=== PATIENT | male | born 1965 | race Caucasian/White ===

== ENCOUNTER 2016-09-11 13:08 | Inpatient (IN) | payer MEDICARE, MEDICAID ==
[2016-09-11] MEDS ORDERED: NORMAL SALINE 1000 ML 1,000 ML IV ONE (13:47)
[2016-09-11] MEDS ORDERED: NORMAL SALINE 100 ML with INSULIN REGULAR, HUMAN 100 UNIT IV PRN ×4 (13:47→23:53)
[2016-09-11] MEDS ORDERED: ONDANSETRON 4 MG TAB.RAPDIS PO ONE (13:52)
--- NOTE | 2016-09-11 14:00 | ER Document Report ---
ED Blood Sugar Problem - General Chief Complaint: High Blood Sugar Stated Complaint: BLOOD SUGAR PROBLEMS Mode of Arrival: Medic Information source: Patient, Emergency Med Personnel TRAVEL OUTSIDE OF THE [place] IN LAST 30 DAYS: No - HPI Onset: Other - 4 days Onset/Duration: Gradual Quality of pain: Dull Severity: Moderate Insulin taken: Yes - HAS BEEN WITHOUT x 4 DAYS Associated symptoms: Dry mucous membranes, Increased thirst, Frequent urination , Vomiting - YESTERDAY, Weakness. denies: Confusion Similar symptoms previously: Yes Recently seen / treated by doctor: No - Related Data Allergies/Adverse Reactions: tomato Allergy (Unknown, Verified 01/22/16 09:58) citric acid Allergy (Verified 10/17/13 16:14) codeine [Codeine] Allergy (Verified 10/17/13 16:14) Penicillins Allergy (Verified 10/17/13 16:14) Past Medical History - General Information source: Patient - Social History Smoking Status: Current Every Day Smoker Cigarette use (# per day): Yes Chew tobacco use (# tins/day): Yes Frequency of alcohol use: Occasional Drug Abuse: None Lives with: Alone Family History: Reviewed & Not Pertinent, Other - Past Medical History Cardiac Medical History: Reports: None Denies: Hx Coronary Artery Disease, Hx Heart Attack, Hx Hypertension Pulmonary Medical History: Reports: Hx COPD Denies: Hx Asthma, Hx Bronchitis, Hx Pneumonia EENT Medical History: Reports: None Neurological Medical History: Reports: None. Denies: Hx Cerebrovascular Accident, Hx Seizures Endocrine Medical History: Reports: Hx Diabetes Mellitus Type 1, Hx Diabetes Mellitus Type 2 Renal/ Medical History: Reports: None Malignancy Medical History: Reports None GI Medical History: Denies: Hx Hepatitis, Hx Hiatal Hernia, Hx Ulcer Musculoskeltal Medical History: Reports Hx Arthritis Psychiatric Medical History: Reports: Hx Depression Traumatic Medical History: Reports: Hx Fractures Infectious Medical History: Denies: Hx Hepatitis Past Surgical History: Reports: Hx Orthopedic Surgery - knee, ankle, back. Denies: Hx Open Heart Surgery, Hx Pacemaker - Immunizations Hx Diphtheria, Pertussis, Tetanus Vaccination: Yes Review of Systems - Review of Systems Constitutional: Weakness. denies: Chills, Fever EENT: Other - DRY MOUTH Cardiovascular: No symptoms reported Respiratory: No symptoms reported Gastrointestinal: See HPI Genitourinary: See HPI Musculoskeletal: Other - R. SHOULDER & UPPER EXTREMITY PAIN (CHRONIC) Skin: No symptoms reported Neurological/Psychological: No symptoms reported Physical Exam - Vital signs Vitals: Temp Resp Pulse Ox 98.6 F 19 98 09/11/16 13:26 09/11/16 13:26 09/11/16 13:26 Interpretation: Tachycardic. No: Hypotensive, Tachypneic - General General appearance: Appears well In distress: None - HEENT Head: Normocephalic Eyes: Normal Conjunctiva: Normal Ears: Normal Nasal: Normal Mouth/Lips: Normal Mucous membranes: Dry Pharynx: Erythema - GENERALIZED, Other - EDENTULOUS - Respiratory Respiratory status: No respiratory distress Breath sounds: Normal - Cardiovascular Rhythm: Regular, Tachycardia Heart sounds: Normal auscultation Murmur: No - Abdominal Inspection: Normal Distension: No distension Bowel sounds: Normal - Extremities General upper extremity: Normal inspection General lower extremity: Normal inspection - Neurological Neuro grossly intact: Yes Cognition: Normal Orientation: AAOx4 - Psychological Associated symptoms: Normal affect, Normal mood - Skin Skin Temperature: Warm Skin Moisture: Dry Skin Color: Normal Skin Turgor: Tenting Course - Vital Signs Vital signs: Temp Pulse Resp BP Pulse Ox 98.6 F 20 142/83 H 100 09/11/16 13:26 09/11/16 16:01 09/11/16 16:01 09/11/16 16:01 - Laboratory Result Diagrams: 09/11/16 14:09 09/11/16 14:09 Laboratory results interpreted by me: 09/11/16 09/11/16 09/11/16 14:09 14:09 16:21 WBC 15.8 H Hgb 13.1 L MCV 78 L MCH 24.5 L MCHC 31.4 L RDW 14.8 H Seg Neuts % (Manual) 91 H Lymphocytes % (Manual) 3 L Monocytes % (Manual) 2 L Abs Neuts (Manual) 15.0 H VBG pH VBG HCO3 Potassium 5.4 H Carbon Dioxide 12 L Anion Gap 28 H Glucose 456 H* POC Glucose 405 H* Direct Bilirubin 0.6 H AST 15 L Urine Glucose (UA) Urine Ketones 09/11/16 09/11/16 09/11/16 17:41 19:46 19:50 WBC Hgb MCV MCH MCHC RDW Seg Neuts % (Manual) Lymphocytes % (Manual) Monocytes % (Manual) Abs Neuts (Manual) VBG pH VBG HCO3 Potassium Carbon Dioxide Anion Gap Glucose POC Glucose 331 H 240 H Direct Bilirubin AST Urine Glucose (UA) >=500 H Urine Ketones 80 H 09/11/16 19:56 WBC Hgb MCV MCH MCHC RDW Seg Neuts % (Manual) Lymphocytes % (Manual) Monocytes % (Manual) Abs Neuts (Manual) VBG pH 7.21 L VBG HCO3 14.6 L Potassium Carbon Dioxide Anion Gap Glucose POC Glucose Direct Bilirubin AST Urine Glucose (UA) Urine Ketones - EKG Interpretation by Ms EKG shows normal: Sinus rhythm, Merlin, Intervals, QRS Complexes, ST-T Waves Rate: Tachycardia - Consults DR. FLORES Time consulted: 20:40 Consulted provider: will come to ER Discharge - Discharge Clinical Impression: Dehydration Diabetic ketoacidosis Qualifiers: Diabetes mellitus type: other specified (including LAURYN) Diabetes mellitus complication detail: without coma Qualified Code(s): E13.10 - Other specified diabetes mellitus with ketoacidosis without coma Vomiting Qualifiers: Vomiting type: unspecified Vomiting Intractability: non-intractable Nausea presence: with nausea Qualified Code(s): R11.2 - Nausea with vomiting, unspecified Condition: Good Disposition: ADMITTED INPATIENT Admitting Provider: Hospitalist Unit Admitted: [facility]
[2016-09-11 14:27] LABS: HEMATOCRIT 41.8 % (37.9-51.0); HEMOGLOBIN 13.1 g/dL (13.5-17.0); HGB HCT DIFFERENCE -2.5; MEAN CORPUSCULAR HEMOGLOBIN 24.5 pg (27.0-33.4); MEAN CORPUSCULAR HGB CONC 31.4 g/dL (32.0-36.0); MEAN CORPUSCULAR VOLUME 78 fl (80-97); RED BLOOD COUNT 5.36 10^6/uL (4.35-5.55); RED CELL DISTRIBUTION WIDTH 14.8 % (11.5-14.0); WHITE BLOOD COUNT 15.8 10^3/uL (4.0-10.5)
[2016-09-11 14:36] LABS: ALANINE AMINOTRANSFERASE 24 U/L (21-72); ALBUMIN 4.2 g/dL (3.5-5.0); ALKALINE PHOSPHATASE 83 U/L (38-126); ASPARTATE AMINO TRANSFERASE 15 U/L (17-59); BILIRUBIN,DIRECT 0.6 mg/dL (0.0-0.4); BLOOD UREA NITROGEN 18 mg/dL (7-20); CALCIUM 9.5 mg/dL (8.4-10.2); CARBON DIOXIDE 12 mmol/L (22-30); CREATINE KINASE 58 U/L (55-170); CREATININE RESULT 1.03 mg/dL (0.52-1.25); POTASSIUM 5.4 mmol/L (3.6-5.0); TOTAL PROTEIN 6.4 g/dL (6.3-8.2)
[2016-09-11 14:43] LABS: BAND NEUTROPHILS % (MANUAL) 4 % (3-5); BASOPHILS % (MANUAL) 0 % (0-2); EOSINOPHILS % (MANUAL) 0 % (0-6); LYMPHOCYTES % (MANUAL) 3 % (13-45); TOTAL CELLS COUNTED 100
[2016-09-11 14:45] LABS: BURR CELLS 1+; MICROCYTOSIS 1+; OVALOCYTES 1+; POIKILOCYTOSIS 2+
[2016-09-11 14:49] LABS: CHLORIDE 101 mmol/L (98-107); SODIUM 140.6 mmol/L (137-145)
[2016-09-11 14:51] LABS: ANION GAP 28 (5-19); TROPONIN I < 0.012 ng/mL
[2016-09-11 14:53] LABS: GLUCOSE 456 mg/dL (75-110)
[2016-09-11] MEDS ORDERED: INSULIN REG, HUMAN 100 UNIT/ML 3 ML VIAL (PYX) ONE (15:00)
[2016-09-11] MEDS ORDERED: NORMAL SALINE 1000 ML 1,000 ML IV PRN (16:38)
[2016-09-11] MEDS ORDERED: POTASSI CL 20 MEQ/NS 1L 1,000 ML IV PRN (16:38)
[2016-09-11] MEDS ORDERED: OXYCODONE-ACETAMINOPHEN 5-325 MG TABLET PO ONE (18:25)
[2016-09-11 20:06] LABS: VENOUS BLOOD BASE EXCESS -12.5 mmol/L; VENOUS BLOOD HCO3 14.6 mmol/L (20-32); VENOUS BLOOD PCO2 37.8 mmHg (35-63); VENOUS BLOOD PH 7.21 (7.30-7.42)
[2016-09-11 20:14] LABS: APPEARANCE,URINE CLEAR; BILIRUBIN,URINE NEGATIVE (NEGATIVE); GLUCOSE, URINE >=500 mg/dL (NEGATIVE); KETONES,URINE 80 mg/dL (NEGATIVE); LEUKOCYTE ESTERASE,URINE NEGATIVE (NEGATIVE); NITRITE,URINE NEGATIVE (NEGATIVE); PROTEIN,URINE NEGATIVE (NEGATIVE); URINE SPECIFIC GRAVITY 1.012; UROBILINOGEN,URINE NEGATIVE mg/dL (<2.0)
[2016-09-11 20:21] LABS: BLOOD UREA NITROGEN 15 mg/dL (7-20); CALCIUM 9.1 mg/dL (8.4-10.2); CREATININE RESULT 0.87 mg/dL (0.52-1.25); GLUCOSE 238 mg/dL (75-110)
[2016-09-11 20:47] LABS: ANION GAP 24 (5-19); CARBON DIOXIDE 12 mmol/L (22-30); CHLORIDE 104 mmol/L (98-107); POTASSIUM 4.6 mmol/L (3.6-5.0); SODIUM 139.6 mmol/L (137-145)
[2016-09-11] MEDS ORDERED: DEXTROSE 5%-1/2 NORMAL SALINE 1,000 ML IV PRN (20:47)
[2016-09-11] MEDS ORDERED: GLUCAGON,HUMAN RECOMB 1 MG INJ IM PRN (23:53)
[2016-09-11] MEDS ORDERED: DEXTROSE 50%-WATER 25 GM/50 ML DISP.SYRIN IV PRN ×2 (23:53)
[2016-09-11] MEDS ORDERED: NICOTINE 21 MG/24 HR PATCH.TD24 TD PRN (23:55)
[2016-09-11] MEDS ORDERED: RINGERS SOLUTION,LACTATED 2,000 ML IV ONE (23:57)
[2016-09-11] MEDS ORDERED: DEXTROSE 5%-NORMAL SALINE 1,000 ML IV PRN (23:57)
[2016-09-11] MEDS ORDERED: ACETAMINOPHEN 325 MG TABLET PO PRN (23:59)
[2016-09-11] MEDS ORDERED: IPRATROPIUM/ALBUTEROL 0.5-2.5 MG/3 ML AMPUL NEB PRN (23:59)
[2016-09-12 00:08] LABS: ADD ON TESTING BLD IN LAB ACKNOWLEDGE
--- NOTE | 2016-09-12 00:15 | PDOC H&P ---
History of Present Illness Admission Date/PCP: 09/11/16 21:19 [facility] Patient complains of: blood sugar problems History of Present Illness: GAL ERICKSON is a 51 year old male, with underlying type I diabetes mellitus, with a history of noncompliance with medications related to same, S and half pack-a-day smoker, history of prior stroke 2, which has left him with mild occasional dysphagia without aspiration along with ambulatory dysfunction, and chronic diabetic neuropathy of his feet and legs dense to the emergency room with complaints of elevated blood sugar, polyuria, polydipsia. No fever chills, chest or abdominal pain. No "sore spots" anywhere on his body. Nausea and occasional vomiting. [facility] [place] [facility], and left his insulin there. Patient has been discussed with emergency room [physician] who evaluated the patient. Hospitalized on our service January 15 through the of last year, with final diagnoses including diabetic ketoacidosis, and MRSA bacteremia secondary to cellulitis of the left forearm. History and physical and discharge summary have been reviewed.. Laboratory results are listed in [employer] and are reviewed. X-ray summary results are listed below, with full report(s) reviewed. []. EKG reviewed. [] Social history/personal habits: Single. One child. Lives with a friend. On disability due to problems from prior strokes. Less than half pack of cigarettes per day. No alcohol for 29 years. Denies illicit drug use. Allergies/adverse reactions [are listed in [employer] and are reviewed.] Home medications [] Home medications initially autopopulated into [employer] may not accurately reflect patient's true medications, dosages, and/or frequencies. [Unfortunately, [patient] uncertain of medications/dosages/frequencies. ] REVIEW OF SYSTEMS: Constitutional: [No fever or chills.] [] Eyes: [Wears glasses.] [] ENT: See history and present illness. [No hearing problems or complaints.] [] Pulmonary: [No current complaints.] [] Cardiovascular: [No current complaints, including chest pain.] [] Gastrointestinal: See history and present illness. [] Skin: [No current complaints, including rashes.] [] Hematologic: [No unusual easy bruising or bleeding.] [] Neurologic: Chronic numbness and tingling of his lower extremities due to diabetes mellitus. [] Musculoskeletal: Chronic shoulder pain. [] Psychiatric: [No current complaints, including anxiety or depression.] [] Endocrine: See history and present illness. [] Genitourinary: [No current complaints, including dysuria.] [] PHYSICAL EXAMINATION: 6 feet 2 inches tall. 76.3 kg. BMI 21.6 kg/m.Temperature 98.5. Blood pressure 118/58. Pulse 78 and regular. Respirations 16 and unlabored. 99% saturation on room air. Thin otherwise well-developed chronically ill-appearing male who appears a number of years older than his stated age. Pleasant awake alert and cooperative. No obvious distress other than somewhat anxious. [Skin is warm and dry. No grossly obvious evidence of rash in areas of skin examined. No subcutaneous nodules palpated.] [] ENT: [Hearing grossly normal] to normal conversation. Tongue midline on protrusion pink and slightly [tacky.] [] Eyes: [No scleral icterus. Pupils equal and reactive to light at 4 mm. [place] conjunctivae.] [] [Neck is supple and nontender to gentle active range of motion and palpation. Midline trachea. No palpable thyroid nodule mass enlargement or tenderness.] [] Lymphatic: [No palpable cervical or clavicular nodes.] [] [Neck and lymphatic exams limited by patient body habitus.] [] Psychiatric: [Fair to reasonable insight into acute and chronic medical issues. Oriented to time location and why here.] [] Lungs: [Auscultation reveals clear and equal breath sounds bilaterally. No use of accessory respiratory muscles.] [] Cardiovascular: [Heart regular rate and rhythm, without gallop murmur or rub. No carotid or abdominal aortic bruits.] [No ankle or pedal edema.] [ [Faintly] palpable dorsalis pedis pulses.] [] Abdomen:[ [soft], [] , [] nontender with positive bowel sounds. No upper abdominal mass or organomegaly palpated..] Extremities: [Feet are warm and dry. No calf tenderness to compression. No grossly obvious visual evidence of calf swelling. Gentle manipulation of lower extremities fails to reveal any obvious evidence of injury or instability to knees hips or ankles.] [] Neurologic: [Moves upper extremities grossly normally. Patellar reflexes absent. Absent Babinski. Light touch decreased at feet. Dorsiflexion and plantarflexion of feet 5 / 5 and symmetric.] [] Past Medical History Cardiac Medical History: Reports: None Denies: Coronary Artery Disease, DVT, Myocardial Infarction, Hyperlipidema, Hypertension, Pulmonary Embolism Pulmonary Medical History: Reports: Chronic Obstructive Pulmonary Disease (COPD) Denies: Asthma, Bronchitis, Pneumonia EENT Medical History: Reports: None Neurological Medical History: Reports: Ischemic CVA Denies: Hemorrhagic CVA, Seizures Endocrine Medical History: Reports: Diabetes Mellitus Type 1 Denies: Hyperthyroidism, Hypothyroidism Renal/ Medical History: Reports: None Malignancy Medical History: Reports: None GI Medical History: Reports: Peptic Ulcer Disease - Distant history of same. Denies: Cirrhosis, Hepatitis, Hiatal Hernia Musculoskeltal Medical History: Reports: Arthritis Psychiatric Medical History: Reports: Tobacco Dependency Denies: Alcohol Dependency, Depression, General Anxiety Disorder, Substance Abuse Hematology: Denies: Anemia, Sickle Cell Disease Infectious Medical History: Reports: Methicillin-Resistant Staph Aureus Denies: Hepatitis B, Hepatitis C Past Surgical History Past Surgical History: Reports: Orthopedic Surgery - knee, ankle, back, Pacemaker Social History Information Source: Patient, Emergency Med Personnel, [facility] Lives with: Friend Smoking Status: Current Every Day Smoker Frequency of Alcohol Use: None Hx Recreational Drug Use: No Hx Prescription Drug Abuse: No - Advance Directive Resuscitation Status: Full Code Surrogate healthcare decision maker:: His friend. Family History Family History: Reviewed & Not Pertinent, Other Parental Family History Reviewed: Yes Children Family History Reviewed: Yes Sibling(s) Family History Reviewed.: Yes Medication/Allergy Home Medications: Insulin Glargine,Hum.rec.anlog [Lantus] 30 units SUBCUT QHS 06/05/13 Gabapentin [Neurontin 300 mg Capsule] 600 mg PO Q8 #180 capsule 11/20/15 Gentamicin Sulfate [Garamycin 0.3% Oph Soln 5 ml] 1 drop OD Q4 #1 bottle Insulin Glargine,Hum.rec.anlog [Lantus Insulin 100 Unit/1 ml 10 ml] 22 units SQ QHS #1 vial 11/20/15 Insulin Lispro [Humalog Insulin (Lispro) 100 unit/mL] 2 unit SUBCUT AC unit Insulin Lispro [Humalog Insulin 100 Unit/1 ml 3 ml Vial] 0 unit SUBCUT .SLD SCALE #1 vial 11/20/15 Gabapentin [Neurontin 300 mg Capsule] 600 mg PO ACHS 01/07/16 Insulin Regular, Human [Humulin R (Reg) Insulin 100 unit/mL] 0 - 12 unit SUBCUT ACHSP PRN unit 01/09/16 Vancomycin/0.9 % Sod Chloride [Vancomycin 1 G/200Ml-0.9% NaCl] 1 gm IV Q8H #30 froz.piggy 01/24/16 Venlafaxine HCl ER [Effexor Xr 37.5 mg Cap.sr] 37.5 mg PO DAILY #30 cap.sr.24h 01/24/16 Allergies/Adverse Reactions: tomato Allergy (Unknown, Verified 01/22/16 09:58) citric acid Allergy (Verified 10/17/13 16:14) codeine [Codeine] Allergy (Verified 10/17/13 16:14) Penicillins Allergy (Verified 10/17/13 16:14) Physical Exam Vital Signs: Temp Pulse Resp BP Pulse Ox 98.6 F 21 H 122/56 L 97 09/11/16 13:26 09/11/16 18:00 09/11/16 22:03 09/11/16 22:03 Results Impressions: Chest X-Ray 09/11/16 13:48 IMPRESSION: NO ACUTE RADIOGRAPHIC FINDING IN THE CHEST. Assessment & Plan - Diagnosis (1) Tobacco dependency Is this a current diagnosis for this admission?: YesPlan: When necessary nicotine patch. (2) DKA, type 1 Qualifiers: Diabetes mellitus complication detail: without coma Qualified Code(s ): E10.10 - Type 1 diabetes mellitus with ketoacidosis without coma Is this a current diagnosis for this admission?: YesPlan: Patient will be admitted under DKA protocol. Insulin drip. Vigorous fluid hydration. Strict intake and output. Q 4 hours chemistry 7. Hourly Accu- Cheks. Addition of dextrose to intravenous fluid once serum glucose and/or Accu- Cheks 275 or less. Patient is full code. I have strongly encouraged patient not to get out of bed without notifying staff , to avoid a fall with injury. Knee high SCDs for DVT prophylaxis, along with subcutaneous Lovenox. Impression and plans were discussed with patient , who concurs. Time spent in evaluation and management of patient: 62 minutes (3) DVT prophylaxis Is this a current diagnosis for this admission?: Yes (4) Noncompliance Is this a current diagnosis for this admission?: Yes (5) COPD (chronic obstructive pulmonary disease) Qualifiers: COPD type: unspecified COPD Qualified Code(s): J44.9 - Chronic obstructive pulmonary disease, unspecified Is this a current diagnosis for this admission?: YesPlan: No evidence of acute exacerbation of same. When necessary DuoNeb. - Inpatient Certification Based on my medical assessment, after consideration of the patient's comorbidities, presenting symptoms, or acuity I expect that the services needed warrant INPATIENT care.: Yes I certify that my determination is in accordance with my understanding of Medicare's requirements for reasonable and necessary INPATIENT services [42 CFR 412.3e].: Yes Medical Necessity: Need Close Monitoring Due to Risk of Patient Decompensation, Need For IV Fluids, Need For Continuous Telemetry Monitoring, Risk of Complication if Not Cared For in Hospital, Risk of Diagnosis Which Will Require Inpatient Eval/Care/Monitoring Post Hospital Care: D/C or Transfer Summary
[2016-09-12 00:18] LABS: MAGNESIUM 1.6 mg/dL (1.6-2.3)
[2016-09-12 00:19] LABS: ALCOHOL < 10 mg/dL (NONE DETECTED)
[2016-09-12 00:47] LABS: ANION GAP 13 (5-19); BLOOD UREA NITROGEN 12 mg/dL (7-20); CALCIUM 8.9 mg/dL (8.4-10.2); CARBON DIOXIDE 17 mmol/L (22-30); CHLORIDE 108 mmol/L (98-107); CREATININE RESULT 0.73 mg/dL (0.52-1.25); GLUCOSE 189 mg/dL (75-110); SODIUM 137.9 mmol/L (137-145)
[2016-09-12] MEDS ORDERED: POTASSIUM CHLORIDE 20 MEQ/15 ML UDCUP PO ONE ×2 (01:34→06:26)
[2016-09-12 05:15] LABS: ABSOLUTE BASOPHILS # (AUTO) 0.1 10^3/uL (0.0-0.2); ABSOLUTE EOSINOPHILS # (AUTO) 0.1 10^3/uL (0.0-0.6); ABSOLUTE LYMPHOCYTES (AUTO) 3.1 10^3/uL (0.5-4.7); ABSOLUTE MONOCYTES (AUTO) 0.7 10^3/uL (0.1-1.4); ABSOLUTE NEUT (AUTO) 7.1 10^3/uL (1.7-8.2); BASOPHILS % (AUTO) 0.5 % (0-2); HEMATOCRIT 36.5 % (37.9-51.0); HEMOGLOBIN 11.7 g/dL (13.5-17.0); HGB HCT DIFFERENCE -1.4; LYMPHOCYTES % (AUTO) 28.1 % (13-45); MEAN CORPUSCULAR HEMOGLOBIN 24.2 pg (27.0-33.4); MEAN CORPUSCULAR VOLUME 76 fl (80-97); MONOCYTES % (AUTO) 6.3 % (3-13); RED BLOOD COUNT 4.82 10^6/uL (4.35-5.55); RED CELL DISTRIBUTION WIDTH 14.5 % (11.5-14.0); SEGMENTED NEUTROPHILS % (AUTO) 64.1 % (42-78); WHITE BLOOD COUNT 11.1 10^3/uL (4.0-10.5)
[2016-09-12 05:42] LABS: ANION GAP 10 (5-19); BLOOD UREA NITROGEN 10 mg/dL (7-20); CALCIUM 8.7 mg/dL (8.4-10.2); CARBON DIOXIDE 19 mmol/L (22-30); CHLORIDE 112 mmol/L (98-107); CREATININE RESULT 0.64 mg/dL (0.52-1.25); GLUCOSE 152 mg/dL (75-110); POTASSIUM 4.1 mmol/L (3.6-5.0); SODIUM 141.2 mmol/L (137-145)
[2016-09-12 08:35] LABS: URINE BARBITURATES SCREEN NEGATIVE; URINE OPIATES LOW NEGATIVE; URINE PHENCYCLIDINE SCREEN NEGATIVE
[2016-09-12 08:36] LABS: URINE METHADONE SCREEN NEGATIVE
[2016-09-12] MEDS: ENOXAPARIN SODIUM INJ 40 MG/0.4 ML DISP.SYRIN SUBCUT SCH (08:38)
[2016-09-12 08:59] LABS: ANION GAP 8 (5-19); BLOOD UREA NITROGEN 8 mg/dL (7-20); CALCIUM 9.1 mg/dL (8.4-10.2); CARBON DIOXIDE 22 mmol/L (22-30); CHLORIDE 112 mmol/L (98-107); CREATININE RESULT 0.59 mg/dL (0.52-1.25); GLUCOSE 100 mg/dL (75-110); POTASSIUM 4.3 mmol/L (3.6-5.0); SODIUM 142.4 mmol/L (137-145)
[2016-09-12] MEDS: DOCUSATE SODIUM 100 MG CAPSULE PO SCH ×2 (11:19→17:35)
[2016-09-12] MEDS: INSULIN GLARGINE,HUM.REC.ANLOG 300 UNIT/3 ML INSULN.PEN SUBCUT SCH ×2 (11:20→23:11)
[2016-09-12] MEDS ORDERED: DEXTROSE 40% GEL 15 GM TUBE PO PRN ×2 (11:44)
[2016-09-12] MEDS ORDERED: GLUCAGON,HUMAN RECOMB 1 MG INJ IM PRN (11:44)
[2016-09-12] MEDS ORDERED: DEXTROSE 50%-WATER 25 GM/50 ML DISP.SYRIN IV PRN ×2 (11:44)
[2016-09-12] MEDS ORDERED: INSULIN LISPRO 100 UNIT/ML 3 ML VIAL ONE (11:47)
[2016-09-12] MEDS: INSULIN LISPRO 100 UNIT/ML 3 ML VIAL SUBCUT PRN ×3 (11:52→23:12)
[2016-09-12] MEDS: BENZOCAINE/MENTHOL SORE THROAT LOZENGE BUCCAL PRN ×2 (14:31→17:41)
--- NOTE | 2016-09-12 14:49 | PDOC PROGRESS REPORT ---
Subjective Progress Note for:: 09/12/16 Subjective:: Patient seen on morning rounds. He is resting comfortably in bed. He states his only complaint is that he is hungry. He denies any nausea, vomiting, or abdominal pain. He denies any cough, shortness of breath or dyspnea. He denies any chest pain, dizziness or headache. He states he has not taken his insulin 3 days because he left the rehabilitation center he was in [place]. Physical Exam Vital Signs: Temp Pulse Resp BP Pulse Ox 98.3 F 76 20 108/53 L 100 09/12/16 12:00 09/12/16 14:00 09/12/16 12:00 09/12/16 12:00 09/12/16 12:00 Intake & Output 09/11/16 09/12/16 09/13/16 06:59 06:59 06:59 Intake Total 2683 0 Output Total 0 Balance 2683 0 General appearance: PRESENT: no acute distress, well-developed, well-nourished Head exam: PRESENT: atraumatic, normocephalic Eye exam: PRESENT: conjunctival injection Ear exam: PRESENT: normal external ear exam Mouth exam: PRESENT: moist, tongue midline Neck exam: ABSENT: carotid bruit, JVD, lymphadenopathy, thyromegaly Respiratory exam: PRESENT: clear to auscultation benjamin. ABSENT: rales, rhonchi, wheezes Cardiovascular exam: PRESENT: RRR. ABSENT: diastolic murmur, rubs, systolic murmur Vascular exam: PRESENT: normal capillary refill GI/Abdominal exam: PRESENT: normal bowel sounds, soft. ABSENT: distended, guarding, mass, organolmegaly, rebound, tenderness Rectal exam: PRESENT: deferred Extremities exam: PRESENT: full ROM. ABSENT: calf tenderness, clubbing, pedal edema Neurological exam: PRESENT: alert, awake, oriented to person, oriented to place , oriented to time, oriented to situation, CN II-XII grossly intact. ABSENT: motor sensory deficit Psychiatric exam: PRESENT: appropriate affect, normal mood. ABSENT: homicidal ideation, suicidal ideation Skin exam: PRESENT: dry, intact, warm. ABSENT: cyanosis, rash Results Laboratory Results: 09/12/16 04:54 09/12/16 08:04 09/12/16 09/12/16 09/12/16 00:25 04:54 04:54 WBC 11.1 H RBC 4.82 Hgb 11.7 L Hct 36.5 L MCV 76 L MCH 24.2 L MCHC 32.0 RDW 14.5 H Plt Count 263 Seg Neutrophils % 64.1 Lymphocytes % 28.1 Monocytes % 6.3 Eosinophils % 1.0 Basophils % 0.5 Absolute Neutrophils 7.1 Absolute Lymphocytes 3.1 Absolute Monocytes 0.7 Absolute Eosinophils 0.1 Absolute Basophils 0.1 Sodium 137.9 141.2 Potassium 4.0 4.1 Chloride 108 H 112 H Carbon Dioxide 17 L 19 L Anion Gap 13 10 BUN 12 10 Creatinine 0.73 0.64 Est GFR ( Amer) > 60 > 60 Est GFR (Non-Af Amer) > 60 > 60 Glucose 189 H 152 H Calcium 8.9 8.7 09/12/16 08:04 WBC RBC Hgb Hct MCV MCH MCHC RDW Plt Count Seg Neutrophils % Lymphocytes % Monocytes % Eosinophils % Basophils % Absolute Neutrophils Absolute Lymphocytes Absolute Monocytes Absolute Eosinophils Absolute Basophils Sodium 142.4 Potassium 4.3 Chloride 112 H Carbon Dioxide 22 Anion Gap 8 BUN 8 Creatinine 0.59 Est GFR ( Amer) > 60 Est GFR (Non-Af Amer) > 60 Glucose 100 Calcium 9.1 Impressions: Chest X-Ray 09/11/16 13:48 IMPRESSION: NO ACUTE RADIOGRAPHIC FINDING IN THE CHEST. Assessment & Plan - Diagnosis (1) DKA (diabetic ketoacidosis) Qualifiers: Diabetes mellitus type: other specified (including LAURYN) Diabetes mellitus complication detail: without coma Qualified Code(s): E13.10 - Other specified diabetes mellitus with ketoacidosis without coma Plan: Patient has been rehydrated with IV fluids. He is received IV insulin overnight and pain Is closed. Bicarbonate is normal small morning. We will restart his Lantus insulin and transition him off the IV insulin. We will restart his diet. He's had a history of noncompliance with medications. (2) Dehydration Is this a current diagnosis for this admission?: YesPlan: Patient was well hydrated overnight with IV fluids. (3) Vomiting Qualifiers: Vomiting type: unspecified Vomiting Intractability: non-intractable Nausea presence: with nausea Qualified Code(s): R11.2 - Nausea with vomiting, unspecified Is this a current diagnosis for this admission?: YesPlan: Patient history of vomiting prior to his admission here. He denies any nausea vomiting present time he states he is hungry. We'll restart diet. (4) Depression Qualifiers: Depression Type: unspecified Qualified Code(s): F32.9 - Major depressive disorder, single episode, unspecified Is this a current diagnosis for this admission?: YesPlan: Continue home medications (5) Tobacco dependency Is this a current diagnosis for this admission?: YesPlan: Patient has been counseled. He has no desire to quit (6) DVT prophylaxis Is this a current diagnosis for this admission?: YesPlan: Patient is on subcutaneous Lovenox - Time Time Spent with patient: 25-34 minutes Critical Time spent with patient: 15-24 minutes Smoking Cessation Education: 3 to 10 minutes Medications reviewed and adjusted accordingly: Yes Anticipated discharge: Home
--- NOTE | 2016-09-12 15:38 | EKG REPORT ---
SEVERITY:- OTHERWISE NORMAL ECG - SINUS TACHYCARDIA : Confirmed by: Tory Shah MD 12-Sep-2016 15:36:29
[2016-09-12 15:45] LABS: ANION GAP 11 (5-19); BLOOD UREA NITROGEN 7 mg/dL (7-20); CALCIUM 8.9 mg/dL (8.4-10.2); CARBON DIOXIDE 20 mmol/L (22-30); CHLORIDE 108 mmol/L (98-107); CREATININE RESULT 0.67 mg/dL (0.52-1.25); GLUCOSE 235 mg/dL (75-110); POTASSIUM 4.5 mmol/L (3.6-5.0); SODIUM 139.4 mmol/L (137-145)
[2016-09-12 19:32] LABS: ANION GAP 12 (5-19); BLOOD UREA NITROGEN 8 mg/dL (7-20); CALCIUM 9.1 mg/dL (8.4-10.2); CARBON DIOXIDE 20 mmol/L (22-30); CHLORIDE 108 mmol/L (98-107); CREATININE RESULT 0.69 mg/dL (0.52-1.25); GLUCOSE 301 mg/dL (75-110); POTASSIUM 4.6 mmol/L (3.6-5.0)
--- NOTE | 2016-09-13 04:40 | Progress Note ---
Provider Note Provider Note: 09/13/16, 0032: Patient continues to intermittently refuse to have blood drawn. I was notified by patient's floor nurse that he Refused to have midnight Chem-7 drawn. I was involved in the care of another patient that time and could not come to the patient's bedside. I had his floor nurse go to the patient's bedside, and by speaker phone, I strongly urged patient to have blood work drawn, stating that his diabetes mellitus could easily get out of control again unless we monitored it on a regular basis resulting in his becoming quite sick again. He seemed quite reluctant to have the blood drawn. I told him we would be requesting that he sign a refusal of care form if he continued to refuse to have his blood drawn. I instructed his nurse that if patient continued to refuse to have his blood drawn, to have patient sign a refusal of care form, and it patient refused to sign, for the nurse to document this in the patient's chart.
[2016-09-13] MEDS: INSULIN LISPRO 100 UNIT/ML 3 ML VIAL SUBCUT PRN ×2 (07:50→11:30)
[2016-09-13] MEDS: ENOXAPARIN SODIUM INJ 40 MG/0.4 ML DISP.SYRIN SUBCUT SCH (07:51)
[2016-09-13] MEDS: DOCUSATE SODIUM 100 MG CAPSULE PO SCH (11:22)
[2016-09-13 12:15] VITALS: BP 107/54
--- NOTE | 2016-09-13 15:23 | PDOC DISCHARGE SUMMARY ---
General - Admit/Disc Date/PCP Admission Date/Primary Care Provider: 09/11/16 23:59 KAYLIE ALVAREZ, Discharge Date: 09/13/16 - Discharge Diagnosis (1) DKA (diabetic ketoacidosis) Summary: Resolved with IV fluids and insulin (2) Dehydration Is this a current diagnosis for this admission?: YesSummary: Resolved (3) Vomiting Is this a current diagnosis for this admission?: YesSummary: Resolved (4) Depression Is this a current diagnosis for this admission?: YesSummary: Continue current medication (5) Tobacco dependency Is this a current diagnosis for this admission?: YesSummary: Patient was counseled he has no intentions of quitting. (6) DVT prophylaxis Is this a current diagnosis for this admission?: YesSummary: No longer problem he is ambulatory - Additional Information Resuscitation Status: Full Code Discharge Diet: Diabetic Discharge Activity: Activity As Tolerated, Balance Activity w/Rest Home Medications: Gabapentin [Neurontin] 600 mg PO Q8 09/12/16 Insulin Glargine,Hum.rec.anlog [Lantus] 5 unit SQ QHS 09/12/16 Acetaminophen [Tylenol 325 mg Tablet] 325 mg PO Q4HP PRN tablet 09/13/16 Insulin Glargine,Hum.rec.anlog [Lantus Insulin 100 Unit/mL] 25 unit SUBCUT QHS # 1 insuln.pen 09/13/16 Insulin Lispro [Humalog] 2 unit SQ AC #10 ml 09/13/16 Syringe & Needle,Insulin,1 ml [Insulin Syringe 1 mL] 1 syr MC ASDIR PRN #100 syringe 09/13/16 History of Present Illness Patient complains of: Blood sugar problems History of Present Illness: GAL ERICKSON is a 51 year old male, with underlying type I diabetes mellitus, with a history of noncompliance with medications related to same, S and half pack-a-day smoker, history of prior stroke 2, which has left him with mild occasional dysphagia without aspiration along with ambulatory dysfunction, and chronic diabetic neuropathy of his feet and legs dense to the emergency room with complaints of elevated blood sugar, polyuria, polydipsia. No fever chills, chest or abdominal pain. No "sore spots" anywhere on his body. Nausea and occasional vomiting. Was discharged from [facility] living in [place] 3 days ago, and left his insulin there. Hospital Course Hospital Course: Patient was admitted to the [facility] on telemetry. He was started on IV fluids, IV insulin, every 1 hour Chemstrip, and dextrose source. His anion gap closed the next morning. He was able to be transitioned from the IV insulin to Lantus insulin. He no further nausea and vomiting. He was tolerating a diabetic diet without any difficulty. He is no longer acidotic today he wishes to go home he states he will get his insulin refilled. He will follow-up with [facility] within 1 week. Physical Exam Vital Signs: Temp Pulse Resp BP Pulse Ox 98.2 F 64 20 107/54 L 99 09/13/16 10:59 09/13/16 10:59 09/13/16 10:59 09/13/16 10:59 09/13/16 10:59 Intake & Output 09/12/16 09/13/16 09/14/16 06:59 06:59 06:59 Intake Total 2683 1735 Output Total 0 Balance 2683 1735 Weight 75.2 kg General appearance: PRESENT: no acute distress, well-developed, well-nourished Head exam: PRESENT: atraumatic, normocephalic Eye exam: PRESENT: conjunctiva pink, EOMI, PERRLA. ABSENT: scleral icterus Ear exam: PRESENT: normal external ear exam Mouth exam: PRESENT: moist, tongue midline Neck exam: ABSENT: carotid bruit, JVD, lymphadenopathy, thyromegaly Respiratory exam: PRESENT: clear to auscultation benjamin. ABSENT: rales, rhonchi, wheezes Cardiovascular exam: PRESENT: RRR. ABSENT: diastolic murmur, rubs, systolic murmur Vascular exam: PRESENT: normal capillary refill GI/Abdominal exam: PRESENT: normal bowel sounds, soft. ABSENT: distended, guarding, mass, organolmegaly, rebound, tenderness Rectal exam: PRESENT: deferred Extremities exam: PRESENT: full ROM. ABSENT: calf tenderness, clubbing, pedal edema Neurological exam: PRESENT: alert, awake, oriented to person, oriented to place , oriented to time, oriented to situation, CN II-XII grossly intact. ABSENT: motor sensory deficit Psychiatric exam: PRESENT: appropriate affect, normal mood. ABSENT: homicidal ideation, suicidal ideation Skin exam: PRESENT: dry, intact, warm. ABSENT: cyanosis, rash Results Laboratory Results: 09/12/16 04:54 09/12/16 18:45 09/12/16 09/12/16 15:00 18:45 Sodium 139.4 140.0 Potassium 4.5 4.6 Chloride 108 H 108 H Carbon Dioxide 20 L 20 L Anion Gap 11 12 BUN 7 8 Creatinine 0.67 0.69 Est GFR ( Amer) > 60 > 60 Est GFR (Non-Af Amer) > 60 > 60 Glucose 235 H 301 H Calcium 8.9 9.1 09/12/16 08:30 Nasophary (Mrsa Only) MRSA Surveillance Culture - Final NO MRSA RECOVERED Impressions: Chest X-Ray 09/11/16 13:48 IMPRESSION: NO ACUTE RADIOGRAPHIC FINDING IN THE CHEST. Qualifiers PATEINT BEING DISCHARGED WITH ANY OF THE FOLLOWING DIAGNOSIS?: No Plan Discharge Plan: Discharge home with family. Time Spent: Less than 30 Minutes
[2016-09-13] MEDS ORDERED: INSULIN GLARGINE,HUM.REC.ANLOG 300 UNIT/3 ML INSULN.PEN SUBCUT SCH (22:00)
== END 2016-09-13 12:50 | disposition home or self-care (01) | DRG 639 ==
LOC: ER 13:08 → UNDOADMIN 21:19 → EH 21:19 → 3W 23:15 → EH 23:59
PROVIDERS: ADMIT Family Medicine; ATTEND Family Medicine
DX: E10.10 Type 1 diabetes mellitus with ketoacidosis without coma (principal); E10.42 Type 1 diabetes mellitus with diabetic polyneuropathy; Z79.4 Long term (current) use of insulin; Z91.14 Patient's other noncompliance with medication regimen; E86.0 Dehydration; I69.391 Dysphagia following cerebral infarction; R13.10 Dysphagia, unspecified; J44.9 Chronic obstructive pulmonary disease, unspecified; F32.9 Major depressive disorder, single episode, unspecified; Z79.899 Other long term (current) drug therapy; Z86.14 Personal history of Methicillin resistant Staphylococcus aureus infection; F17.210 Nicotine dependence, cigarettes, uncomplicated; Z91.018 Allergy to other foods; Z87.11 Personal history of peptic ulcer disease; Z88.0 Allergy status to penicillin; Z88.8 Allergy status to other drugs, medicaments and biological substances
CPT/HCPCS: 36415; 71010; 80048; 80053; 80307; 81001; 82550; 82553; 82803; 82962; 83036; 83735; 84484; 85025; 93005; 93010; 96360; 96361; 99285; J1650; J1815; J3480; J3490; J7030; J7120; S0119

== ENCOUNTER 2016-09-15 06:39 | Inpatient (IN) | payer MEDICARE, MEDICAID ==
--- NOTE | 2016-09-15 06:46 | ER Document Report ---
ED General - General Stated Complaint: BLOOD SUGAR PROBLEMS Mode of Arrival: Medic Information source: Patient, Emergency Med Personnel Cannot obtain history due to: Altered mental status Notes: 51-year-old diabetic male who takes Humalog only presents by EMS for altered mental status. It is noted that the patient woke up friends, appeared confused breathing fast. Patient blood sugar has been elevated over the past 3-4 days. Patient unable to provide further information TRAVEL OUTSIDE OF THE [place] IN LAST 30 DAYS: No - HPI Onset: Just prior to arrival Onset/Duration: Sudden Quality of pain: No pain Severity: Mild Pain Level: Denies Associated symptoms: Nausea Exacerbated by: Denies Relieved by: Denies Similar symptoms previously: No Recently seen / treated by doctor: No - Related Data Allergies/Adverse Reactions: tomato Allergy (Unknown, Verified 01/22/16 09:58) citric acid Allergy (Verified 10/17/13 16:14) codeine [Codeine] Allergy (Verified 10/17/13 16:14) Penicillins Allergy (Verified 10/17/13 16:14) Past Medical History - Social History Smoking Status: Never Smoker Cigarette use (# per day): No Chew tobacco use (# tins/day): No Smoking Education Provided: No Family History: Reviewed & Not Pertinent, Other - Past Medical History Cardiac Medical History: Denies: Hx Coronary Artery Disease, Hx DVT, Hx Heart Attack, Hx Hypercholesterolemia, Hx Hypertension, Hx Pulmonary Embolism Pulmonary Medical History: Reports: Hx COPD Denies: Hx Asthma, Hx Bronchitis, Hx Pneumonia Neurological Medical History: Denies: Hx Cerebrovascular Accident, Hx Seizures Endocrine Medical History: Reports: Hx Diabetes Mellitus Type 1, Hx Diabetes Mellitus Type 2. Denies: Hx Hyperthyroidism, Hx Hypothyroidism GI Medical History: Denies: Hx Cirrhosis, Hx Hepatitis, Hx Hiatal Hernia, Hx Ulcer Musculoskeltal Medical History: Reports Hx Arthritis Psychiatric Medical History: Denies: Hx Depression Traumatic Medical History: Reports: Hx Fractures Infectious Medical History: Reports: Hx MRSA. Denies: Hx Hepatitis Past Surgical History: Reports: Hx Orthopedic Surgery - knee, ankle, back, Hx Pacemaker. Denies: Hx Open Heart Surgery - Immunizations Hx Diphtheria, Pertussis, Tetanus Vaccination: Yes Review of Systems - Review of Systems Notes: REVIEW OF SYSTEMS: per ems CONSTITUTIONAL : Denies fever, chills, or sweats. Denies recent illness. EENT: Denies eye, ear, throat, or mouth pain or symptoms. Denies nasal or sinus congestion or discharge. Denies throat, tongue, or mouth swelling or difficulty swallowing. CARDIOVASCULAR: Denies chest pain. Denies palpitations or racing or irregular heart beat. Denies ankle edema. RESPIRATORY: Denies cough, cold, or chest congestion. Denies shortness of breath, difficulty breathing, or wheezing. GASTROINTESTINAL: admits ot nausea GENITOURINARY: Denies difficulty urinating, painful urination, burning, frequency, blood in urine, or discharge. MUSCULOSKELETAL: Denies back or neck pain or stiffness. Denies joint pain or swelling. SKIN: Denies rash, lesions or sores. HEMATOLOGIC : Denies easy bruising or bleeding. LYMPHATIC: Denies swollen, enlarged glands. NEUROLOGICAL: appears confused PSYCHIATRIC: Denies anxiety or stress. Denies depression, suicidal ideation, or homicidal ideation. ALL OTHER SYSTEMS REVIEWED AND NEGATIVE. Dictation was performed using [employer] voice recognition software PHYSICAL EXAMINATION: GENERAL: ill appearing male , pale HEAD: Atraumatic, normocephalic. EYES: Pupils equal round and reactive to light, extraocular movements intact, sclera anicteric, conjunctiva are normal. ENT: Nares patent, oropharynx clear without exudates. Moist mucous membranes. NECK: Normal range of motion, supple without lymphadenopathy LUNGS: tachypneic HEART: tachycardic ABDOMEN: Soft, nontender, nondistended abdomen. No guarding, no rebound. No masses appreciated. Musculoskeletal: Normal range of motion, no pitting or edema. No cyanosis. NEUROLOGICAL: moaning, not answering questions appropriately, not following commands SKIN: pale Physical Exam - Vital signs Vitals: Pulse Resp BP Pulse Ox 134 H 30 H 134/73 H 100 09/15/16 06:50 09/15/16 06:50 09/15/16 06:50 09/15/16 06:50 Course - Re-evaluation Re-evalutation: 09/15/16 06:54 Patient appears to be in DKA at this time, lab work is pending fluids have been ordered, accucheck high 09/15/16 08:42 Patient's VBG has resolved, pH is 6.8, sodium bicarbonate has been started. Patient is already received 2 L of IV fluid however we had great difficulty in obtaining blood and multiple sticks were attempted. 09/15/16 09:00 UA notes significant ketones and glucose 09/15/16 09:27 Patient's blood sugar is noted to be 800+, given that he is currently protecting his airway do not believe he needs to be intubated. Patient will be admitted to the ICU - Vital Signs Vital signs: Temp Pulse Resp BP Pulse Ox 95.8 F L 133 H 33 H 153/99 H 100 09/15/16 09:00 09/15/16 09:00 09/15/16 09:00 09/15/16 09:00 09/15/16 09:00 - Laboratory Result Diagrams: 09/15/16 08:11 09/15/16 07:50 Laboratory results interpreted by me: 09/15/16 09/15/16 09/15/16 07:50 08:11 08:11 WBC 23.7 H Hgb 11.3 L MCH 24.7 L MCHC 28.7 L RDW 16.0 H Seg Neuts % (Manual) 82 H Lymphocytes % (Manual) 11 L Abs Neuts (Manual) 20.1 H VBG pH 6.80 L* VBG pCO2 26.6 L VBG HCO3 4.0 L Potassium 6.2 H* Carbon Dioxide < 5 L* BUN 23 H Creatinine 1.69 H Est GFR ( Amer) 52 L Est GFR (Non-Af Amer) 43 L Glucose 821 H* Direct Bilirubin 0.6 H Total Protein 5.8 L Urine Glucose (UA) Urine Ketones Urine Blood 09/15/16 08:40 WBC Hgb MCH MCHC RDW Seg Neuts % (Manual) Lymphocytes % (Manual) Abs Neuts (Manual) VBG pH VBG pCO2 VBG HCO3 Potassium Carbon Dioxide BUN Creatinine Est GFR ( Amer) Est GFR (Non-Af Amer) Glucose Direct Bilirubin Total Protein Urine Glucose (UA) >=500 H Urine Ketones 80 H Urine Blood SMALL H - Diagnostic Test Radiology reviewed: Image reviewed, Reports reviewed Critical Care Note - Critical Care Note Total time excluding time spent on procedures (mins): 45 Comments: 45 minutes of critical care time spent in direct contact evaluating and reevaluating the patient, treating symptoms, reviewing labs and studies and speaking with family and consultants excluding any procedures Discharge - Discharge Clinical Impression: Acute encephalopathy, Dehydration DKA (diabetic ketoacidoses) Qualifiers: Diabetes mellitus type: type 1 Diabetes mellitus complication detail: without coma Qualified Code(s): E10.10 - Type 1 diabetes mellitus with ketoacidosis without coma COPD (chronic obstructive pulmonary disease) Qualifiers: COPD type: unspecified COPD Qualified Code(s): J44.9 - Chronic obstructive pulmonary disease, unspecified Condition: Serious Disposition: ADMITTED INPATIENT Admitting Provider: Hospitalist Unit Admitted: ICU
[2016-09-15 08:21] LABS: HEMATOCRIT 39.3 % (37.9-51.0); HEMOGLOBIN 11.3 g/dL (13.5-17.0); MEAN CORPUSCULAR HEMOGLOBIN 24.7 pg (27.0-33.4); MEAN CORPUSCULAR HGB CONC 28.7 g/dL (32.0-36.0); RED BLOOD COUNT 4.57 10^6/uL (4.35-5.55); WHITE BLOOD COUNT 23.7 10^3/uL (4.0-10.5)
[2016-09-15 08:31] LABS: HGB HCT DIFFERENCE -5.4
[2016-09-15 08:36] LABS: VENOUS BLOOD BASE EXCESS -29.9 mmol/L; VENOUS BLOOD PCO2 26.6 mmHg (35-63)
[2016-09-15 08:37] LABS: VENOUS BLOOD PH 6.8 (7.30-7.42)
[2016-09-15 08:39] LABS: ALANINE AMINOTRANSFERASE 28 U/L (21-72); ALBUMIN 3.8 g/dL (3.5-5.0); ALKALINE PHOSPHATASE 89 U/L (38-126); ASPARTATE AMINO TRANSFERASE 23 U/L (17-59); BILIRUBIN,DIRECT 0.6 mg/dL (0.0-0.4); BILIRUBIN,TOTAL 0.6 mg/dL (0.2-1.3); BLOOD UREA NITROGEN 23 mg/dL (7-20); CALCIUM 9.1 mg/dL (8.4-10.2); CREATININE RESULT 1.69 mg/dL (0.52-1.25); LIPASE 34.7 U/L (23-300); TOTAL PROTEIN 5.8 g/dL (6.3-8.2)
[2016-09-15] MEDS ORDERED: SODIUM BICARBONATE 8.4% INJ 50 MEQ/50 ML DISP.SYRIN IV ONE (08:39)
[2016-09-15] MEDS: NORMAL SALINE 1000 ML 1,000 ML IV PRN ×8 (08:40→09:06)
[2016-09-15 08:55] LABS: APPEARANCE,URINE CLEAR; BILIRUBIN,URINE NEGATIVE (NEGATIVE); GLUCOSE, URINE >=500 mg/dL (NEGATIVE); KETONES,URINE 80 mg/dL (NEGATIVE); LEUKOCYTE ESTERASE,URINE NEGATIVE (NEGATIVE); NITRITE,URINE NEGATIVE (NEGATIVE); PROTEIN,URINE NEGATIVE (NEGATIVE); UROBILINOGEN,URINE NEGATIVE mg/dL (<2.0)
[2016-09-15 08:57] LABS: BAND NEUTROPHILS % (MANUAL) 3 % (3-5); BASOPHILS % (MANUAL) 0 % (0-2); EOSINOPHILS % (MANUAL) 0 % (0-6); LYMPHOCYTES % (MANUAL) 11 % (13-45); TOTAL CELLS COUNTED 100
[2016-09-15 08:59] LABS: ANISOCYTOSIS 1+
[2016-09-15 09:00] LABS: BURR CELLS 2+; HELMET CELLS SLIGHT; OVALOCYTES 1+; POIKILOCYTOSIS 3+
[2016-09-15 09:01] LABS: MEAN CORPUSCULAR VOLUME 86 fl (80-97)
[2016-09-15 09:16] LABS: CHLORIDE 101 mmol/L (98-107); SODIUM 141.5 mmol/L (137-145)
[2016-09-15 09:21] LABS: CARBON DIOXIDE < 5 mmol/L (22-30); GLUCOSE 821 mg/dL (75-110); POTASSIUM 6.2 mmol/L (3.6-5.0)
[2016-09-15] MEDS ORDERED: INSULIN REG, HUMAN 100 UNIT/ML 3 ML VIAL (PYX) IV ONE (09:22)
[2016-09-15] MEDS ORDERED: DEXTROSE 50%-WATER SYRINGE 25 GM/50 ML DOSE IV PRN (09:37)
[2016-09-15] MEDS ORDERED: INSULIN, REGULAR 100 UNIT/100 ML NORMAL SALINE IV PRN ×2 (09:37)
[2016-09-15] MEDS ORDERED: DEXTROSE 50%-WATER SYRINGE 12.5 GM/25 ML DOSE IV PRN (09:37)
[2016-09-15] MEDS ORDERED: DEXTROSE 40% GEL 15 GM TUBE PO PRN ×4 (09:37→09:52)
[2016-09-15] MEDS ORDERED: GLUCAGON,HUMAN RECOMB 1 MG INJ IM PRN ×2 (09:37→09:52)
[2016-09-15] MEDS ORDERED: DEXTROSE 40% GEL 15 GM TUBE X 2 PO PRN (09:37)
[2016-09-15] MEDS ORDERED: INSULIN REG, HUMAN 100 UNIT/ML 3 ML VIAL (PYX) ONE (09:43)
[2016-09-15] MEDS: NORMAL SALINE 100 ML with INSULIN REGULAR, HUMAN 100 UNIT IV PRN ×4 (09:45→19:55)
[2016-09-15] MEDS ORDERED: GLUCAGON,HUMAN RECOMB 1 MG INJ SUBCUT PRN (09:52)
[2016-09-15] MEDS ORDERED: IPRATROPIUM/ALBUTEROL 0.5-2.5 MG/3 ML AMPUL NEB PRN (09:52)
[2016-09-15] MEDS ORDERED: DEXTROSE 50%-WATER 25 GM/50 ML DISP.SYRIN IV PRN ×2 (09:52)
[2016-09-15] MEDS ORDERED: ONDANSETRON HCL INJ/PF 4 MG/2 ML SDV IV PRN (10:01)
[2016-09-15] MEDS ORDERED: ACETAMINOPHEN 650 MG SUPP.RECT PR PRN (10:01)
[2016-09-15] MEDS ORDERED: LORAZEPAM INJ 2 MG/1 ML VIAL IV ONE (10:55)
[2016-09-15] MEDS ORDERED: DIPHENHYDRAMINE HCL 50 MG/ML VIAL IV ONE (10:55)
[2016-09-15 11:18] LABS: URINE BARBITURATES SCREEN NEGATIVE; URINE METHADONE SCREEN NEGATIVE; URINE OPIATES LOW NEGATIVE; URINE PHENCYCLIDINE SCREEN NEGATIVE
[2016-09-15] MEDS: RINGERS SOLUTION,LACTATED 1,000 ML IV PRN ×3 (11:52→14:34)
--- NOTE | 2016-09-15 12:26 | PDOC H&P ---
History of Present Illness Admission Date/PCP: 09/15/16 09:52 KAYLIE ALVAREZ, Patient complains of: obtunded History of Present Illness: GAL ERICKSON is a 51 year old male well known to the hospitalist service for repeated admissions in the treatment of his type I diabetes, medical noncompliance and resultant DKA. In fact he was just admitted to our hospital and discharged to couple of days ago after medical noncompliance led to an episode of DKA. He presents to the emergency department now due to altered mental status and is once again found to be severely acidotic with blood sugars registering greater than 1000. Currently he remains obtunded and unable to provide a review of systems her medical history. He has a pH of 6.8, is receiving his sixth liter of normal saline and is on an insulin drip at 7 units per hour at present. We've been asked to admit patient for further evaluation and management. Past Medical History Cardiac Medical History: Denies: Coronary Artery Disease, DVT, Myocardial Infarction, Hyperlipidema, Hypertension, Pulmonary Embolism Pulmonary Medical History: Reports: Chronic Obstructive Pulmonary Disease (COPD) Denies: Asthma, Bronchitis, Pneumonia Neurological Medical History: Denies: Seizures Endocrine Medical History: Reports: Diabetes Mellitus Type 1, Diabetes Mellitus Type 2 Denies: Hyperthyroidism, Hypothyroidism GI Medical History: Denies: Cirrhosis, Hepatitis, Hiatal Hernia Musculoskeltal Medical History: Reports: Arthritis Psychiatric Medical History: Denies: Depression Hematology: Denies: Anemia, Sickle Cell Disease Infectious Medical History: Reports: Methicillin-Resistant Staph Aureus Past Surgical History Past Surgical History: Reports: Orthopedic Surgery - knee, ankle, back, Pacemaker Social History Smoking Status: Never Smoker Frequency of Alcohol Use: None Hx Recreational Drug Use: No Hx Prescription Drug Abuse: No - Advance Directive Resuscitation Status: Full Code Family History Family History: Reviewed & Not Pertinent, Other Parental Family History Reviewed: Yes - from old record Children Family History Reviewed: Unknown Sibling(s) Family History Reviewed.: Unknown Medication/Allergy Home Medications: Gabapentin [Neurontin] 600 mg PO Q8 09/15/16 Insulin Glargine,Hum.rec.anlog [Lantus Solostar] 5 unit SQ QHS 09/15/16 Insulin Lispro [Humalog] 2 unit SQ AC 09/15/16 Allergies/Adverse Reactions: tomato Allergy (Unknown, Verified 01/22/16 09:58) citric acid Allergy (Verified 10/17/13 16:14) codeine [Codeine] Allergy (Verified 10/17/13 16:14) Penicillins Allergy (Verified 10/17/13 16:14) Review of Systems ROS unobtainable: Due to mental status Physical Exam Vital Signs: Temp Pulse Resp BP Pulse Ox 98.6 F 120 H 27 H 114/68 99 09/15/16 12:00 09/15/16 12:00 09/15/16 12:00 09/15/16 12:00 09/15/16 12:00 Intake & Output 09/14/16 09/15/16 09/16/16 06:59 06:59 06:59 Output Total 400 Balance -400 Results Laboratory Results: 09/15/16 11:19 09/15/16 11:19 Glucose 551 H* CBC shows WBCs of 24,000 with 3% bands; venous blood gas shows a pH of 6.8, bicarbonate of 4 and a PCO2 of 27. Serum chemistries show a potassium of 6.2, carbon dioxide less than 5, BUN of 23 creatinine of 1.7, glucose of 821, LFTs are normal Urinalysis just shows glucosuria and ketonuria; urine drug screen is negative Impressions: Chest X-Ray 09/15/16 10:00 IMPRESSION: Mild vascular congestion. Assessment & Plan - Diagnosis (1) DKA (diabetic ketoacidoses) Qualifiers: Diabetes mellitus type: type 1 Diabetes mellitus complication detail: without coma Qualified Code(s): E10.10 - Type 1 diabetes mellitus with ketoacidosis without coma Is this a current diagnosis for this admission?: YesPlan: Admit the patient to the ICU on insulin drip and aggressive IV fluid rehydration , change to lactated Ringer's to prevent hyperchlorhydria worsening his acidosis. Follow BMP, mag, phosphorus every 4 hours and adjust treatment regimen accordingly. (2) Acute encephalopathy Is this a current diagnosis for this admission?: YesPlan: Likely secondary to above. Continue soft wrist restraints and as needed Ativan and Haldol to keep him safe and pulling from his lifelines. (3) Hyperkalemia Is this a current diagnosis for this admission?: YesPlan: Secondary to the acidosis. Follow-up with labs every 4 hours. (4) Acute kidney injury Is this a current diagnosis for this admission?: YesPlan: Likely secondary to above, prerenal. Follow renal function as we rehydrate. - Time Time Spent: Greater than 70 Minutes Medications reviewed and adjusted accordingly: Yes - Plan Summary Plan Summary: Prognosis guarded, severity of his acidosis significantly increases his risk for morbidity or mortality.
[2016-09-15] MEDS ORDERED: LORAZEPAM INJ 2 MG/1 ML VIAL ONE (13:51)
[2016-09-15 14:37] LABS: BLOOD UREA NITROGEN 19 mg/dL (7-20); CALCIUM 7.9 mg/dL (8.4-10.2); CHLORIDE 113 mmol/L (98-107); GLUCOSE 328 mg/dL (75-110); MAGNESIUM 1.9 mg/dL (1.6-2.3); PHOSPHORUS 1.8 mg/dL (2.5-4.5); SODIUM 145.9 mmol/L (137-145)
[2016-09-15] MEDS: LORAZEPAM INJ 2 MG/1 ML VIAL IV PRN (14:45)
[2016-09-15 14:49] LABS: ANION GAP 25 (5-19); POTASSIUM 3.7 mmol/L (3.6-5.0)
[2016-09-15 14:51] LABS: CARBON DIOXIDE 8 mmol/L (22-30)
--- NOTE | 2016-09-15 15:03 | OPERATIVE REPORT E ---
Operative Report NAME: GAL ERICKSON : 1965 AGE: 51Y DATE OF SURGERY: ROOM: 608 OPERATION: Insertion of central venous catheter through the right subclavian vein. SURGEON: ALMA ROSA BOUCHER M.D. ANESTHESIA: 1% lidocaine done in ICU at the bedside. INDICATION: Patient came in with extreme dehydration with diabetic ketoacidosis. He needed a central venous access both for monitoring and also for IV for infusion. Procedure was done at the bedside after informed consent was obtained. PROCEDURE: The patient was placed in the Trendelenburg position. Neck and anterior chest were cleaned and draped as a sterile field. On the right side the internal jugular vein was accessed by using the Seldinger technique. Through the needle a guidewire was passed into the superior vena cava. The tract was dilated, and then over the guidewire a triple lumen central venous catheter was inserted into the superior vena cava. Excellent venous flow throughout three lumens of the catheter. All 3 lumens were flushed out and with heparinized saline. Dressings were applied after securing the catheter in place. Patient tolerated the procedure very well. DICTATING PHYSICIAN: ALMA ROSA BOUCHER M.D. [id number] Y#: [id number] ID: [id number] JOB#: [id number] ACCT: [id number] cc:ALMA ROSA BOUCHER M.D. > MTDD
[2016-09-15] MEDS: POTASSI CL 20 MEQ/D5-1/2NS 1L 1,000 ML IV PRN ×2 (16:40→21:42)
[2016-09-15 18:19] LABS: ANION GAP 16 (5-19); BLOOD UREA NITROGEN 17 mg/dL (7-20); CALCIUM 8.1 mg/dL (8.4-10.2); CARBON DIOXIDE 14 mmol/L (22-30); CHLORIDE 115 mmol/L (98-107); CREATININE RESULT 0.92 mg/dL (0.52-1.25); GLUCOSE 204 mg/dL (75-110); POTASSIUM 3.7 mmol/L (3.6-5.0); SODIUM 144.8 mmol/L (137-145)
[2016-09-15] MEDS: POTASSI CL 20 MEQ/50 ML RIDER 20 MEQ/50 ML RTUPB IV SCH ×2 (20:08→21:56)
--- NOTE | 2016-09-15 20:49 | EKG REPORT ---
SEVERITY:- BORDERLINE ECG - SINUS RHYTHM BORDERLINE PROLONGED QT INTERVAL : Confirmed by: Yajaira Mejia 15-Sep-2016 20:48:24
[2016-09-15] MEDS: PANTOPRAZOLE SODIUM 40 MG VIAL IV SCH (21:43)
[2016-09-15 23:33] LABS: ANION GAP 12 (5-19); BLOOD UREA NITROGEN 15 mg/dL (7-20); CALCIUM 8.3 mg/dL (8.4-10.2); CARBON DIOXIDE 18 mmol/L (22-30); CHLORIDE 116 mmol/L (98-107); CREATININE RESULT 0.73 mg/dL (0.52-1.25); GLUCOSE 159 mg/dL (75-110); MAGNESIUM 1.7 mg/dL (1.6-2.3); PHOSPHORUS 1.7 mg/dL (2.5-4.5); POTASSIUM 3.6 mmol/L (3.6-5.0); SODIUM 145.7 mmol/L (137-145)
[2016-09-16] MEDS ORDERED: POTASSI CL 20 MEQ/50 ML RIDER 20 MEQ/50 ML RTUPB IV ONE (00:45)
[2016-09-16 02:29] LABS: ANION GAP 9 (5-19); BLOOD UREA NITROGEN 14 mg/dL (7-20); CALCIUM 7.9 mg/dL (8.4-10.2); CARBON DIOXIDE 20 mmol/L (22-30); CHLORIDE 118 mmol/L (98-107); CREATININE RESULT 0.66 mg/dL (0.52-1.25); GLUCOSE 77 mg/dL (75-110); SODIUM 146.6 mmol/L (137-145)
[2016-09-16] MEDS: POTASSI CL 20 MEQ/D5-1/2NS 1L 1,000 ML IV PRN ×4 (03:11→23:48)
[2016-09-16] MEDS: DEXTROSE 50%-WATER 25 GM/50 ML DISP.SYRIN IV PRN (03:24)
[2016-09-16] MEDS: LORAZEPAM INJ 2 MG/1 ML VIAL IV PRN ×2 (04:18→11:48)
[2016-09-16 06:18] LABS: ABSOLUTE LYMPHOCYTES (AUTO) 1.5 10^3/uL (0.5-4.7); ABSOLUTE MONOCYTES (AUTO) 0.9 10^3/uL (0.1-1.4); ABSOLUTE NEUT (AUTO) 9.8 10^3/uL (1.7-8.2); BASOPHILS % (AUTO) 0.3 % (0-2); EOSINOPHILS % (AUTO) 0.3 % (0-6); HEMATOCRIT 30.3 % (37.9-51.0); HEMOGLOBIN 9.7 g/dL (13.5-17.0); HGB HCT DIFFERENCE -1.2; LYMPHOCYTES % (AUTO) 12.4 % (13-45); MEAN CORPUSCULAR HEMOGLOBIN 24.1 pg (27.0-33.4); MONOCYTES % (AUTO) 7.7 % (3-13); RED BLOOD COUNT 4.03 10^6/uL (4.35-5.55); SEGMENTED NEUTROPHILS % (AUTO) 79.3 % (42-78); WHITE BLOOD COUNT 12.3 10^3/uL (4.0-10.5)
[2016-09-16 06:24] LABS: MEAN CORPUSCULAR VOLUME 75 fl (80-97)
[2016-09-16 06:27] LABS: PROTHROMBIN TIME 14.7 SEC (11.4-15.4)
[2016-09-16 06:53] LABS: ANION GAP 8 (5-19); BLOOD UREA NITROGEN 13 mg/dL (7-20); CALCIUM 7.9 mg/dL (8.4-10.2); CARBON DIOXIDE 19 mmol/L (22-30); CHLORIDE 116 mmol/L (98-107); CREATININE RESULT 0.61 mg/dL (0.52-1.25); GLUCOSE 126 mg/dL (75-110); MAGNESIUM 1.7 mg/dL (1.6-2.3); PHOSPHORUS 1.9 mg/dL (2.5-4.5); POTASSIUM 4.1 mmol/L (3.6-5.0); SODIUM 143.2 mmol/L (137-145)
[2016-09-16] MEDS: ENOXAPARIN SODIUM INJ 40 MG/0.4 ML DISP.SYRIN SUBCUT SCH (08:18)
[2016-09-16] MEDS: PANTOPRAZOLE SODIUM 40 MG VIAL IV SCH ×2 (09:10→21:24)
[2016-09-16 10:55] LABS: ANION GAP 10 (5-19); BLOOD UREA NITROGEN 11 mg/dL (7-20); CARBON DIOXIDE 19 mmol/L (22-30); CHLORIDE 114 mmol/L (98-107); GLUCOSE 251 mg/dL (75-110); POTASSIUM 4.1 mmol/L (3.6-5.0); SODIUM 142.9 mmol/L (137-145)
--- NOTE | 2016-09-16 11:35 | PDOC PROGRESS REPORT ---
Subjective Progress Note for:: 09/16/16 Subjective:: Reason for follow-up visit: DKA, metabolic encephalopathy, acute kidney injury, hyperkalemia Hospital course:GAL ERICKSON is a 51 year old male well known to the hospitalist service for repeated admissions in the treatment of his type I diabetes, medical noncompliance and resultant DKA. In fact he was just admitted to our hospital and discharged to couple of days ago after medical noncompliance led to an episode of DKA. He presents to the emergency department now due to altered mental status and is once again found to be severely acidotic with blood sugars registering greater than 1000. Currently he remains obtunded and unable to provide a review of systems her medical history. He has a pH of 6.8, is receiving his sixth liter of normal saline and is on an insulin drip at 7 units per hour at present. We've been asked to admit patient for further evaluation and management. He was admitted to the ICU on insulin drip with rapid correction in his anion gap and in spite of a change to D5 containing IV fluids dropped his blood sugars low early this morning, worsening his encephalopathy. He remains off insulin drip with blood sugars now trending back up into the 180s. He remains encephalopathic and in soft wrist restraints, unable to participate in his exam. ROS: Unobtainable due to mental state Physical Exam Vital Signs: Temp Pulse Resp BP Pulse Ox 97.9 F 80 15 128/75 H 99 09/16/16 11:00 09/16/16 09:25 09/16/16 10:00 09/16/16 09:23 09/16/16 10:00 Intake & Output 09/15/16 09/16/16 09/17/16 06:59 06:59 06:59 Intake Total 2182 Output Total 3400 260 Balance -1218 -260 Weight 81.2 kg EXAM GENERAL: NAD; well developed, well nourished; no obese; obtunded; odor of ketones on his breath HEENT: normocephalic, atraumatic; no conjunctival injection, no scleral icterus ; oral mucosa very dry; RESPIRATORY: abd accessory muscle use and increased WOB, good air entry bilaterally; no wheezes, rales, rhonchi; no inspiratory crackles CARDIO: no JVD; RRR; no systolic murmur; no tachycardia GI: soft; nondistended; normal bowel sounds; no hepato spleno megaly; no rebound, rigidity, guarding; no grimace to palpation VASCULAR: no carotid bruit; no abdominal bruit; no pallor; 2+ radial, DP pulse ; normal capillary refill NEURO: 2+ patellar reflexes, no clonus at the ankles or wrists EXTREMITIES: no calf tender; no palpable cords in calf; no clubbing, cyanosis , pedal edema PSYCH: obtunded SKIN: cool and clammy; no petechiae; no telengectasias; no jaundice; no rash; multiple tatoos Results Laboratory Results: 09/16/16 06:00 09/16/16 10:00 09/15/16 09/15/16 09/15/16 11:19 14:04 17:50 WBC RBC Hgb Hct MCV MCH MCHC RDW Plt Count Seg Neutrophils % Lymphocytes % Monocytes % Eosinophils % Basophils % Absolute Neutrophils Absolute Lymphocytes Absolute Monocytes Absolute Eosinophils Absolute Basophils Sodium 145.9 H 144.8 Potassium 3.7 D 3.7 Chloride 113 H 115 H Carbon Dioxide 8 L* 14 L Anion Gap 25 H 16 BUN 19 17 Creatinine 1.20 0.92 Est GFR ( Amer) > 60 > 60 Est GFR (Non-Af Amer) > 60 > 60 Glucose 551 H* 328 H 204 H Calcium 7.9 L 8.1 L Phosphorus 1.8 L Magnesium 1.9 09/15/16 09/16/16 09/16/16 22:00 02:00 06:00 WBC RBC Hgb Hct MCV MCH MCHC RDW Plt Count Seg Neutrophils % Lymphocytes % Monocytes % Eosinophils % Basophils % Absolute Neutrophils Absolute Lymphocytes Absolute Monocytes Absolute Eosinophils Absolute Basophils Sodium 145.7 H 146.6 H 143.2 Potassium 3.6 4.0 4.1 Chloride 116 H 118 H 116 H Carbon Dioxide 18 L 20 L 19 L Anion Gap 12 9 8 BUN 15 14 13 Creatinine 0.73 0.66 0.61 Est GFR ( Amer) > 60 > 60 > 60 Est GFR (Non-Af Amer) > 60 > 60 > 60 Glucose 159 H 77 126 H Calcium 8.3 L 7.9 L 7.9 L Phosphorus 1.7 L 1.9 L Magnesium 1.7 1.7 09/16/16 09/16/16 06:00 10:00 WBC 12.3 H RBC 4.03 L Hgb 9.7 L Hct 30.3 L MCV 75 L D MCH 24.1 L MCHC 32.0 RDW 14.0 Plt Count 217 Seg Neutrophils % 79.3 H Lymphocytes % 12.4 L Monocytes % 7.7 Eosinophils % 0.3 Basophils % 0.3 Absolute Neutrophils 9.8 H Absolute Lymphocytes 1.5 Absolute Monocytes 0.9 Absolute Eosinophils 0.0 Absolute Basophils 0.0 Sodium 142.9 Potassium 4.1 Chloride 114 H Carbon Dioxide 19 L Anion Gap 10 BUN 11 Creatinine 0.60 Est GFR ( Amer) > 60 Est GFR (Non-Af Amer) > 60 Glucose 251 H Calcium 8.0 L Phosphorus Magnesium 09/16/16 06:00 CK-MB (CK-2) 9.45 H Impressions: Chest X-Ray 09/15/16 10:00 IMPRESSION: Mild vascular congestion. Assessment & Plan - Diagnosis (1) DKA (diabetic ketoacidoses) Qualifiers: Diabetes mellitus type: type 1 Diabetes mellitus complication detail: without coma Qualified Code(s): E10.10 - Type 1 diabetes mellitus with ketoacidosis without coma Is this a current diagnosis for this admission?: YesPlan: Resolved, likely 2/2 medical noncompliance resulting in insulin deficiency; continue care in ICU, resume insulin drip to maintain basal levels equivalent to 0.5 U/kg/d and continue IV fluid resuscitation with lactated Ringer's to prevent hyperchlorhydria worsening his acidosis. Follow BMP, mag, phosphorus, start electrolyte replacement protocol. (2) Acute encephalopathy Is this a current diagnosis for this admission?: YesPlan: Likely secondary to above. Continue soft wrist restraints and as needed Ativan and Haldol to keep him safe and pulling from his lifelines. (3) Hyperkalemia Is this a current diagnosis for this admission?: YesPlan: resolved. Secondary to the acidosis. continue K+ containing fluids while on insulin gtt, continue to monitor and adjust Tx as indicated. (4) Acute kidney injury Is this a current diagnosis for this admission?: YesPlan: resolved. Likely secondary to above, prerenal. Follow renal function as we rehydrate. (6) Leukocytosis Qualifiers: Leukocytosis type: bandemia Qualified Code(s): D72.825 - Bandemia Is this a current diagnosis for this admission?: YesPlan: Likely a leukemoid reaction to the stress from the above, I see no evidence of active infection at this time. Integument monitor CBC. - Time Time Spent with patient: 35 or more minutes Medications reviewed and adjusted accordingly: Yes Anticipated discharge: Home Within: within 48 hours
[2016-09-16] MEDS: HALOPERIDOL LACTATE INJ 5 MG/1 ML VIAL IV PRN (12:49)
[2016-09-16 15:31] LABS: ANION GAP 7 (5-19); BLOOD UREA NITROGEN 9 mg/dL (7-20); CALCIUM 8.1 mg/dL (8.4-10.2); CARBON DIOXIDE 21 mmol/L (22-30); CHLORIDE 114 mmol/L (98-107); CREATININE RESULT 0.57 mg/dL (0.52-1.25); GLUCOSE 182 mg/dL (75-110); MAGNESIUM 1.7 mg/dL (1.6-2.3); PHOSPHORUS 1.1 mg/dL (2.5-4.5); POTASSIUM 3.9 mmol/L (3.6-5.0); SODIUM 142.2 mmol/L (137-145)
[2016-09-16 18:37] LABS: ANION GAP 7 (5-19); BLOOD UREA NITROGEN 8 mg/dL (7-20); CALCIUM 8.4 mg/dL (8.4-10.2); CARBON DIOXIDE 23 mmol/L (22-30); CHLORIDE 114 mmol/L (98-107); CREATININE RESULT 0.55 mg/dL (0.52-1.25); GLUCOSE 81 mg/dL (75-110); SODIUM 143.5 mmol/L (137-145)
[2016-09-16 18:40] LABS: POTASSIUM 3.5 mmol/L (3.6-5.0)
[2016-09-16 22:39] LABS: ANION GAP 8 (5-19); BLOOD UREA NITROGEN 7 mg/dL (7-20); CALCIUM 8.4 mg/dL (8.4-10.2); CARBON DIOXIDE 21 mmol/L (22-30); CHLORIDE 113 mmol/L (98-107); CREATININE RESULT 0.57 mg/dL (0.52-1.25); GLUCOSE 148 mg/dL (75-110); MAGNESIUM 1.7 mg/dL (1.6-2.3); PHOSPHORUS 1.5 mg/dL (2.5-4.5); POTASSIUM 3.6 mmol/L (3.6-5.0); SODIUM 142.3 mmol/L (137-145)
[2016-09-17] MEDS: HALOPERIDOL LACTATE INJ 5 MG/1 ML VIAL IV PRN ×3 (00:50→21:23)
[2016-09-17] MEDS: LORAZEPAM INJ 2 MG/1 ML VIAL IV PRN ×4 (00:50→22:45)
[2016-09-17 02:23] LABS: ANION GAP 6 (5-19); BLOOD UREA NITROGEN 6 mg/dL (7-20); CALCIUM 8.3 mg/dL (8.4-10.2); CARBON DIOXIDE 23 mmol/L (22-30); CHLORIDE 115 mmol/L (98-107); CREATININE RESULT 0.58 mg/dL (0.52-1.25); GLUCOSE 119 mg/dL (75-110); POTASSIUM 3.6 mmol/L (3.6-5.0); SODIUM 143.8 mmol/L (137-145)
[2016-09-17] MEDS: POTASSI CL 20 MEQ/D5-1/2NS 1L 1,000 ML IV PRN (05:39)
[2016-09-17 06:35] LABS: ABSOLUTE EOSINOPHILS # (AUTO) 0.1 10^3/uL (0.0-0.6); ABSOLUTE LYMPHOCYTES (AUTO) 1.8 10^3/uL (0.5-4.7); ABSOLUTE MONOCYTES (AUTO) 0.3 10^3/uL (0.1-1.4); ABSOLUTE NEUT (AUTO) 4.9 10^3/uL (1.7-8.2); BASOPHILS % (AUTO) 0.2 % (0-2); EOSINOPHILS % (AUTO) 1.3 % (0-6); HEMOGLOBIN 10.1 g/dL (13.5-17.0); HGB HCT DIFFERENCE 0.3; LYMPHOCYTES % (AUTO) 25.2 % (13-45); MEAN CORPUSCULAR HGB CONC 33.8 g/dL (32.0-36.0); MEAN CORPUSCULAR VOLUME 74 fl (80-97); MONOCYTES % (AUTO) 4.8 % (3-13); RED BLOOD COUNT 4.06 10^6/uL (4.35-5.55); RED CELL DISTRIBUTION WIDTH 14.5 % (11.5-14.0); SEGMENTED NEUTROPHILS % (AUTO) 68.5 % (42-78); WHITE BLOOD COUNT 7.1 10^3/uL (4.0-10.5)
[2016-09-17 06:50] LABS: ANION GAP 7 (5-19); BLOOD UREA NITROGEN 5 mg/dL (7-20); CALCIUM 8.2 mg/dL (8.4-10.2); CARBON DIOXIDE 23 mmol/L (22-30); CHLORIDE 113 mmol/L (98-107); CREATININE RESULT 0.55 mg/dL (0.52-1.25); GLUCOSE 154 mg/dL (75-110); MAGNESIUM 1.6 mg/dL (1.6-2.3); PHOSPHORUS 2.2 mg/dL (2.5-4.5); POTASSIUM 3.6 mmol/L (3.6-5.0)
[2016-09-17] MEDS: ENOXAPARIN SODIUM INJ 40 MG/0.4 ML DISP.SYRIN SUBCUT SCH (08:46)
[2016-09-17] MEDS: PANTOPRAZOLE SODIUM 40 MG VIAL IV SCH ×2 (10:26→21:22)
[2016-09-17] MEDS ORDERED: INSULIN GLARGINE,HUM.REC.ANLOG 1,000 UNIT/10 ML UNIT SUBCUT ONE (10:30)
[2016-09-17] MEDS: INSULIN LISPRO 100 UNIT/ML 3 ML VIAL SUBCUT PRN (11:32)
[2016-09-17 15:12] LABS: MAGNESIUM 1.7 mg/dL (1.6-2.3); PHOSPHORUS 1.4 mg/dL (2.5-4.5)
[2016-09-17] MEDS: INSULIN GLARGINE,HUM.REC.ANLOG 300 UNIT/3 ML INSULN.PEN SUBCUT SCH (17:08)
--- NOTE | 2016-09-17 17:27 | PDOC PROGRESS REPORT ---
Subjective Progress Note for:: 09/17/16 Subjective:: Patient is clinically improved; but his behavior is strange Does not establish an eye contact does not answer questions He defecated on the floor The anion gap has closed And he is off the insulin drip Physical Exam Vital Signs: Temp Pulse Resp BP Pulse Ox 98.8 F 60 18 157/84 H 100 09/17/16 16:00 09/17/16 16:00 09/17/16 16:00 09/17/16 16:00 09/17/16 16:00 Intake & Output 09/16/16 09/17/16 09/18/16 00:59 00:59 00:59 Intake Total 2182 3368 Output Total 3050 2010 700 Balance -3050 172 2668 Weight 77.6 kg 81.2 kg 81.3 kg General appearance: PRESENT: no acute distress, well-developed, well-nourished Head exam: PRESENT: atraumatic, normocephalic Eye exam: PRESENT: conjunctiva pink, EOMI, PERRLA. ABSENT: scleral icterus Ear exam: PRESENT: normal external ear exam Mouth exam: PRESENT: moist, tongue midline Neck exam: ABSENT: carotid bruit, JVD, lymphadenopathy, thyromegaly Respiratory exam: PRESENT: clear to auscultation benjamin. ABSENT: rales, rhonchi, wheezes Cardiovascular exam: PRESENT: RRR. ABSENT: diastolic murmur, rubs, systolic murmur Pulses: PRESENT: normal dorsalis pedis pul Vascular exam: PRESENT: normal capillary refill GI/Abdominal exam: PRESENT: normal bowel sounds, soft. ABSENT: distended, guarding, mass, organolmegaly, rebound, tenderness Rectal exam: PRESENT: deferred Extremities exam: PRESENT: full ROM. ABSENT: calf tenderness, clubbing, pedal edema Neurological exam: PRESENT: altered, awake, CN II-XII grossly intact Psychiatric exam: PRESENT: flat affect Skin exam: PRESENT: dry, intact, warm. ABSENT: cyanosis, rash Results Laboratory Results: 09/17/16 06:24 09/17/16 06:24 09/16/16 09/16/16 09/17/16 17:52 22:15 02:00 WBC RBC Hgb Hct MCV MCH MCHC RDW Plt Count Seg Neutrophils % Lymphocytes % Monocytes % Eosinophils % Basophils % Absolute Neutrophils Absolute Lymphocytes Absolute Monocytes Absolute Eosinophils Absolute Basophils Sodium 143.5 142.3 143.8 Potassium 3.5 L 3.6 3.6 Chloride 114 H 113 H 115 H Carbon Dioxide 23 21 L 23 Anion Gap 7 8 6 BUN 8 7 6 L Creatinine 0.55 0.57 0.58 Est GFR ( Amer) > 60 > 60 > 60 Est GFR (Non-Af Amer) > 60 > 60 > 60 Glucose 81 148 H 119 H Calcium 8.4 8.4 8.3 L Phosphorus 1.5 L Magnesium 1.7 09/17/16 09/17/16 09/17/16 06:24 06:24 14:46 WBC 7.1 RBC 4.06 L Hgb 10.1 L Hct 30.0 L MCV 74 L MCH 25.0 L MCHC 33.8 RDW 14.5 H Plt Count 183 Seg Neutrophils % 68.5 Lymphocytes % 25.2 Monocytes % 4.8 Eosinophils % 1.3 Basophils % 0.2 Absolute Neutrophils 4.9 Absolute Lymphocytes 1.8 Absolute Monocytes 0.3 Absolute Eosinophils 0.1 Absolute Basophils 0.0 Sodium 143.0 Potassium 3.6 Chloride 113 H Carbon Dioxide 23 Anion Gap 7 BUN 5 L Creatinine 0.55 Est GFR ( Amer) > 60 Est GFR (Non-Af Amer) > 60 Glucose 154 H Calcium 8.2 L Phosphorus 2.2 L 1.4 L Magnesium 1.6 1.7 09/15/16 13:35 Nasophary ([facility] Only) MRSA Surveillance Culture - Final NO MRSA RECOVERED 09/16/16 06:00 CK-MB (CK-2) 9.45 H Impressions: Chest X-Ray 09/15/16 10:00 IMPRESSION: Mild vascular congestion. Head CT 09/16/16 00:00 IMPRESSION: Limited negative study Assessment & Plan - Diagnosis (1) Acute encephalopathy Is this a current diagnosis for this admission?: YesPlan: etiology unclear ? does the patient have underlying psych illness treat with intermittent Haldol reevaluate needs in am sitter if needed (2) DKA (diabetic ketoacidoses) Qualifiers: Diabetes mellitus type: type 1 Diabetes mellitus complication detail: without coma Qualified Code(s): E10.10 - Type 1 diabetes mellitus with ketoacidosis without coma Is this a current diagnosis for this admission?: YesPlan: resolved resume lantus accuchecks qid - Time Time Spent with patient: we may downgrade the patient to medical unit with sitter Time Spent with patient: 25-34 minutes
[2016-09-17] MEDS ORDERED: INSULIN GLARGINE,HUM.REC.ANLOG 1,000 UNIT/10 ML UNIT SUBCUT SCH (18:00)
[2016-09-17 23:18] LABS: MAGNESIUM 1.5 mg/dL (1.6-2.3); PHOSPHORUS 2.1 mg/dL (2.5-4.5)
[2016-09-18] MEDS: INSULIN GLARGINE,HUM.REC.ANLOG 300 UNIT/3 ML INSULN.PEN SUBCUT SCH ×2 (05:27→19:52)
[2016-09-18 05:31] LABS: ABSOLUTE LYMPHOCYTES (AUTO) 1.1 10^3/uL (0.5-4.7); ABSOLUTE MONOCYTES (AUTO) 0.3 10^3/uL (0.1-1.4); HEMATOCRIT 33.7 % (37.9-51.0); HEMOGLOBIN 11.5 g/dL (13.5-17.0); HGB HCT DIFFERENCE 0.8; LYMPHOCYTES % (AUTO) 24.1 % (13-45); MEAN CORPUSCULAR HEMOGLOBIN 25.2 pg (27.0-33.4); MEAN CORPUSCULAR VOLUME 74 fl (80-97); MONOCYTES % (AUTO) 6.6 % (3-13); RED BLOOD COUNT 4.56 10^6/uL (4.35-5.55); RED CELL DISTRIBUTION WIDTH 13.8 % (11.5-14.0); SEGMENTED NEUTROPHILS % (AUTO) 67.3 % (42-78); WHITE BLOOD COUNT 4.5 10^3/uL (4.0-10.5)
[2016-09-18 05:41] LABS: MAGNESIUM 1.5 mg/dL (1.6-2.3); PHOSPHORUS 2.7 mg/dL (2.5-4.5)
[2016-09-18] MEDS ORDERED: MAGNESIUM SULFATE/D5W 1 GM/100 ML RTUPB IV ONE (08:30)
[2016-09-18] MEDS: DEXTROSE 5%-1/2 NORMAL SALINE 1,000 ML IV PRN ×2 (08:47→20:26)
[2016-09-18] MEDS: ENOXAPARIN SODIUM INJ 40 MG/0.4 ML DISP.SYRIN SUBCUT SCH (08:47)
[2016-09-18 09:58] LABS: ADD HIVPANEL? NO; HIV (1 AND 2) ANTIBODY NEGATIVE (NEGATIVE)
[2016-09-18] MEDS: PANTOPRAZOLE SODIUM 40 MG VIAL IV SCH ×2 (10:22→22:23)
--- NOTE | 2016-09-18 17:24 | PDOC PROGRESS REPORT ---
Subjective Progress Note for:: 09/18/16 Subjective:: Patient appears extremely withdrawn He does not establish an eye contact He does not wish to eat His behavior is quite inappropriate He did communicate with the nurse and knew day time and place Physical Exam Vital Signs: Temp Pulse Resp BP Pulse Ox 98.2 F 65 18 161/86 H 100 09/18/16 10:00 09/17/16 19:56 09/17/16 19:56 09/17/16 19:56 09/17/16 19:56 Intake & Output 09/17/16 09/18/16 09/19/16 00:59 00:59 00:59 Intake Total 2181 3368 Output Total 2009 3460 7610 Balance 590 -3135 -8504 Weight 81.2 kg 81.3 kg 74.2 kg General appearance: PRESENT: no acute distress, well-developed, well-nourished Head exam: PRESENT: atraumatic, normocephalic Eye exam: PRESENT: conjunctiva pink, EOMI, PERRLA. ABSENT: scleral icterus Ear exam: PRESENT: normal external ear exam Mouth exam: PRESENT: moist, tongue midline Neck exam: ABSENT: carotid bruit, JVD, lymphadenopathy, thyromegaly Respiratory exam: PRESENT: clear to auscultation benjamin. ABSENT: rales, rhonchi, wheezes Cardiovascular exam: PRESENT: RRR. ABSENT: diastolic murmur, rubs, systolic murmur Pulses: PRESENT: normal dorsalis pedis pul Vascular exam: PRESENT: normal capillary refill GI/Abdominal exam: PRESENT: normal bowel sounds, soft. ABSENT: distended, guarding, mass, organolmegaly, rebound, tenderness Rectal exam: PRESENT: deferred Extremities exam: PRESENT: full ROM. ABSENT: calf tenderness, clubbing, pedal edema Neurological exam: PRESENT: alert, awake, oriented to person, oriented to place , oriented to time, oriented to situation, CN II-XII grossly intact. ABSENT: motor sensory deficit Psychiatric exam: PRESENT: appropriate affect, normal mood. ABSENT: homicidal ideation, suicidal ideation Skin exam: PRESENT: dry, intact, warm. ABSENT: cyanosis, rash Results Laboratory Results: 09/18/16 05:15 09/17/16 06:24 09/17/16 09/17/16 09/17/16 14:46 14:46 22:54 WBC RBC Hgb Hct MCV MCH MCHC RDW Plt Count Seg Neutrophils % Lymphocytes % Monocytes % Eosinophils % Basophils % Absolute Neutrophils Absolute Lymphocytes Absolute Monocytes Absolute Eosinophils Absolute Basophils Phosphorus 2.1 L Magnesium 1.5 L Vitamin B12 924.0 TSH 0.70 09/18/16 09/18/16 05:15 05:15 WBC 4.5 RBC 4.56 Hgb 11.5 L Hct 33.7 L MCV 74 L MCH 25.2 L MCHC 34.0 RDW 13.8 Plt Count 197 Seg Neutrophils % 67.3 Lymphocytes % 24.1 Monocytes % 6.6 Eosinophils % 1.0 Basophils % 1.0 Absolute Neutrophils 3.0 Absolute Lymphocytes 1.1 Absolute Monocytes 0.3 Absolute Eosinophils 0.0 Absolute Basophils 0.0 Phosphorus 2.7 Magnesium 1.5 L Vitamin B12 TSH 09/16/16 06:00 CK-MB (CK-2) 9.45 H Impressions: Chest X-Ray 09/15/16 10:00 IMPRESSION: Mild vascular congestion. Head CT 09/16/16 00:00 IMPRESSION: Limited negative study Assessment & Plan - Diagnosis (1) Acute encephalopathy Is this a current diagnosis for this admission?: YesPlan: ? Is it an acute encephalopathy or is it inappropriate behavior and thus the patient psych illness At this time we will defer further tests MRI and spinal tap Reevaluate in a.m. A psych consult will be obtained We will continue one-to-one watch (2) DKA (diabetic ketoacidoses) Qualifiers: Diabetes mellitus type: type 1 Diabetes mellitus complication detail: without coma Qualified Code(s): E10.10 - Type 1 diabetes mellitus with ketoacidosis without coma Is this a current diagnosis for this admission?: YesPlan: Improved Continue Lantus and lispro coverage - Time Time Spent with patient: 25-34 minutes
[2016-09-18 18:35] LABS: MAGNESIUM 1.9 mg/dL (1.6-2.3); PHOSPHORUS 2.2 mg/dL (2.5-4.5)
[2016-09-18] MEDS: LORAZEPAM INJ 2 MG/1 ML VIAL IV PRN (20:26)
[2016-09-18 22:55] LABS: MAGNESIUM 1.7 mg/dL (1.6-2.3); PHOSPHORUS 2.6 mg/dL (2.5-4.5)
[2016-09-19] MEDS: INSULIN GLARGINE,HUM.REC.ANLOG 300 UNIT/3 ML INSULN.PEN SUBCUT SCH ×2 (06:40→21:25)
[2016-09-19 07:38] LABS: MAGNESIUM 1.7 mg/dL (1.6-2.3); PHOSPHORUS 3.1 mg/dL (2.5-4.5)
[2016-09-19] MEDS: LORAZEPAM INJ 2 MG/1 ML VIAL IV PRN ×3 (08:00→22:22)
[2016-09-19] MEDS: PANTOPRAZOLE SODIUM 40 MG VIAL IV SCH ×2 (11:19→22:21)
--- NOTE | 2016-09-19 20:22 | PDOC PROGRESS REPORT ---
Subjective Progress Note for:: 09/19/16 Subjective:: Patient is still belligerent at times Other times she is very obtunded Family is at the bedside and MRI information could be filled As well as a consent for spinal tap tomorrow Physical Exam Vital Signs: Temp Pulse Resp BP Pulse Ox 97.7 F 62 14 137/89 H 97 09/19/16 16:13 09/19/16 16:13 09/19/16 16:13 09/19/16 16:13 09/19/16 16:13 Intake & Output 09/18/16 09/19/16 09/20/16 00:59 00:59 00:59 Intake Total 3368 660 2739 Output Total 6925 1475 1050 Balance -6529 -815 1689 Weight 81.3 kg 74.2 kg 75.3 kg General appearance: PRESENT: no acute distress, thin Head exam: PRESENT: atraumatic, normocephalic Eye exam: PRESENT: conjunctiva pink, EOMI, PERRLA. ABSENT: scleral icterus Ear exam: PRESENT: normal external ear exam Mouth exam: PRESENT: moist, tongue midline Neck exam: ABSENT: carotid bruit, JVD, lymphadenopathy, thyromegaly Respiratory exam: PRESENT: clear to auscultation benjamin. ABSENT: rales, rhonchi, wheezes Cardiovascular exam: PRESENT: RRR. ABSENT: diastolic murmur, rubs, systolic murmur Pulses: PRESENT: normal dorsalis pedis pul Vascular exam: PRESENT: normal capillary refill GI/Abdominal exam: PRESENT: normal bowel sounds, soft. ABSENT: distended, guarding, mass, organolmegaly, rebound, tenderness Rectal exam: PRESENT: deferred Extremities exam: PRESENT: full ROM. ABSENT: calf tenderness, clubbing, pedal edema Neurological exam: PRESENT: altered Psychiatric exam: ABSENT: suicidal ideation Skin exam: PRESENT: dry, intact, warm. ABSENT: cyanosis, rash Results Laboratory Results: 09/18/16 05:15 09/17/16 06:24 09/18/16 09/19/16 22:15 06:44 Phosphorus 2.6 3.1 Magnesium 1.7 1.7 09/16/16 06:00 CK-MB (CK-2) 9.45 H Impressions: Chest X-Ray 09/15/16 10:00 IMPRESSION: Mild vascular congestion. Head CT 09/16/16 00:00 IMPRESSION: Limited negative study Assessment & Plan - Diagnosis (1) Acute encephalopathy Is this a current diagnosis for this admission?: YesPlan: Etiology is unclear Patient will undergo MRI tonight Spinal tap will be performed tomorrow if possible (2) DKA (diabetic ketoacidoses) Qualifiers: Diabetes mellitus type: type 1 Diabetes mellitus complication detail: without coma Qualified Code(s): E10.10 - Type 1 diabetes mellitus with ketoacidosis without coma Is this a current diagnosis for this admission?: Yes - Time Time Spent with patient: 25-34 minutes
[2016-09-19] MEDS ORDERED: HALOPERIDOL LACTATE INJ 5 MG/1 ML VIAL IM ONE (22:15)
[2016-09-20] MEDS: HALOPERIDOL LACTATE INJ 5 MG/1 ML VIAL IV PRN ×3 (00:16→19:18)
[2016-09-20 01:17] LABS: MAGNESIUM 1.9 mg/dL (1.6-2.3); PHOSPHORUS 3.3 mg/dL (2.5-4.5)
[2016-09-20] MEDS: LORAZEPAM INJ 2 MG/1 ML VIAL IV PRN ×3 (05:38→22:28)
[2016-09-20] MEDS: INSULIN GLARGINE,HUM.REC.ANLOG 300 UNIT/3 ML INSULN.PEN SUBCUT SCH ×2 (05:39→18:37)
[2016-09-20 07:20] LABS: ABSOLUTE EOSINOPHILS # (AUTO) 0.2 10^3/uL (0.0-0.6); ABSOLUTE LYMPHOCYTES (AUTO) 1.3 10^3/uL (0.5-4.7); ABSOLUTE MONOCYTES (AUTO) 0.4 10^3/uL (0.1-1.4); ABSOLUTE NEUT (AUTO) 2.5 10^3/uL (1.7-8.2); BASOPHILS % (AUTO) 0.4 % (0-2); HEMATOCRIT 36.5 % (37.9-51.0); HGB HCT DIFFERENCE -0.5; LYMPHOCYTES % (AUTO) 30.2 % (13-45); MEAN CORPUSCULAR HEMOGLOBIN 24.7 pg (27.0-33.4); MEAN CORPUSCULAR HGB CONC 32.9 g/dL (32.0-36.0); MEAN CORPUSCULAR VOLUME 75 fl (80-97); MONOCYTES % (AUTO) 8.3 % (3-13); RED BLOOD COUNT 4.86 10^6/uL (4.35-5.55); RED CELL DISTRIBUTION WIDTH 13.7 % (11.5-14.0); SEGMENTED NEUTROPHILS % (AUTO) 57.1 % (42-78); WHITE BLOOD COUNT 4.4 10^3/uL (4.0-10.5)
[2016-09-20 07:40] LABS: ANION GAP 10 (5-19); BLOOD UREA NITROGEN 8 mg/dL (7-20); C-REACTIVE PROTEIN 20.1 mg/L (<10.0); CALCIUM 8.8 mg/dL (8.4-10.2); CARBON DIOXIDE 25 mmol/L (22-30); CHLORIDE 107 mmol/L (98-107); GLUCOSE 315 mg/dL (75-110); MAGNESIUM 1.9 mg/dL (1.6-2.3); PHOSPHORUS 3.4 mg/dL (2.5-4.5); POTASSIUM 3.9 mmol/L (3.6-5.0); SODIUM 141.8 mmol/L (137-145)
[2016-09-20 08:10] LABS: ERYTHROCYTE SEDIMENTATION RATE 9 mm/hr (0-20)
[2016-09-20] MEDS: PANTOPRAZOLE SODIUM 40 MG VIAL IV SCH ×2 (11:02→21:52)
[2016-09-20] MEDS: INSULIN LISPRO 100 UNIT/ML 3 ML VIAL SUBCUT PRN (11:10)
[2016-09-20] MEDS: THIAMINE HCL 500 MG in NORMAL SALINE 50 ML IV SCH ×2 (14:37→21:52)
--- NOTE | 2016-09-20 15:13 | PDOC PROGRESS REPORT ---
Subjective Progress Note for:: 09/20/16 Subjective:: Patient is still extremely confused and agitated and needs to be sedated at times An MRI of the brain was normal He still needs to be restrained Physical Exam Vital Signs: Temp Pulse Resp BP Pulse Ox 97.8 F 63 14 132/76 H 100 09/20/16 11:53 09/20/16 11:53 09/20/16 11:53 09/20/16 11:53 09/20/16 11:53 Intake & Output 09/19/16 09/20/16 09/21/16 00:59 00:59 00:59 Intake Total 660 3059 Output Total 1475 1050 Balance -815 2008 Weight 74.2 kg 75.3 kg 69.2 kg General appearance: PRESENT: no acute distress, other - Sedated Head exam: PRESENT: atraumatic, normocephalic Eye exam: PRESENT: conjunctiva pink, EOMI, PERRLA. ABSENT: scleral icterus Neck exam: ABSENT: carotid bruit, JVD, lymphadenopathy, thyromegaly Respiratory exam: PRESENT: clear to auscultation benjamin. ABSENT: rales, rhonchi, wheezes Cardiovascular exam: PRESENT: RRR. ABSENT: diastolic murmur, rubs, systolic murmur Pulses: PRESENT: normal dorsalis pedis pul GI/Abdominal exam: PRESENT: normal bowel sounds, soft. ABSENT: distended, guarding, mass, organolmegaly, rebound, tenderness Results Laboratory Results: 09/20/16 06:20 09/20/16 06:20 09/20/16 09/20/16 09/20/16 00:48 06:20 06:20 WBC 4.4 RBC 4.86 Hgb 12.0 L Hct 36.5 L MCV 75 L MCH 24.7 L MCHC 32.9 RDW 13.7 Plt Count 219 Seg Neutrophils % 57.1 Lymphocytes % 30.2 Monocytes % 8.3 Eosinophils % 4.0 Basophils % 0.4 Absolute Neutrophils 2.5 Absolute Lymphocytes 1.3 Absolute Monocytes 0.4 Absolute Eosinophils 0.2 Absolute Basophils 0.0 Sodium 141.8 Potassium 3.9 Chloride 107 Carbon Dioxide 25 Anion Gap 10 BUN 8 Creatinine 0.50 L Est GFR ( Amer) > 60 Est GFR (Non-Af Amer) > 60 Glucose 315 H Calcium 8.8 Phosphorus 3.3 3.4 Magnesium 1.9 1.9 C-Reactive Protein 20.1 H 09/16/16 06:00 CK-MB (CK-2) 9.45 H Impressions: Chest X-Ray 09/15/16 10:00 IMPRESSION: Mild vascular congestion. Head CT 09/16/16 00:00 IMPRESSION: Limited negative study Head MRI 09/19/16 19:09 IMPRESSION: NORMAL MRI OF THE BRAIN WITHOUT INTRAVENOUS GADOLINIUM CONTRAST. Assessment & Plan - Diagnosis (1) Acute encephalopathy Is this a current diagnosis for this admission?: YesPlan: Etiology is unclear Patient a will be treated for Wernicke's encephalopathy with Thiamine 500 mg 3 times a day for [address] head and MRI were negative Patient to undergo spinal tap on Friday if not improved (2) DKA (diabetic ketoacidoses) Qualifiers: Diabetes mellitus type: type 1 Diabetes mellitus complication detail: without coma Qualified Code(s): E10.10 - Type 1 diabetes mellitus with ketoacidosis without coma Is this a current diagnosis for this admission?: YesPlan: Has resolved We will continue IV fluids Lantus and coverage Patient is not eating - Time Time Spent with patient: 25-34 minutes
[2016-09-20] MEDS: ENOXAPARIN SODIUM INJ 40 MG/0.4 ML DISP.SYRIN SUBCUT SCH (15:45)
[2016-09-21] LABS: MAGNESIUM 1.9 mg/dL (1.6-2.3); PHOSPHORUS 2.9 mg/dL (2.5-4.5)
[2016-09-21] MEDS: INSULIN GLARGINE,HUM.REC.ANLOG 300 UNIT/3 ML INSULN.PEN SUBCUT SCH ×2 (05:28→19:21)
[2016-09-21] MEDS: DEXTROSE 50%-WATER 25 GM/50 ML DISP.SYRIN IV PRN (05:31)
[2016-09-21] MEDS: THIAMINE HCL 500 MG in NORMAL SALINE 50 ML IV SCH ×3 (05:31→21:08)
[2016-09-21] MEDS: LORAZEPAM INJ 2 MG/1 ML VIAL IV PRN (05:31)
[2016-09-21 08:44] LABS: MAGNESIUM 1.8 mg/dL (1.6-2.3); PHOSPHORUS 3.6 mg/dL (2.5-4.5)
[2016-09-21] MEDS: PANTOPRAZOLE SODIUM 40 MG VIAL IV SCH (10:15)
[2016-09-21] MEDS: ENOXAPARIN SODIUM INJ 40 MG/0.4 ML DISP.SYRIN SUBCUT SCH (10:15)
--- NOTE | 2016-09-21 15:04 | PDOC PROGRESS REPORT ---
Subjective Progress Note for:: 09/21/16 Subjective:: mentation is somewhat improved He is less agitated at times answers questions appropriately He still withdrawn He refuses to eat He does not need to be sedated and restrained at this time ; psychiatric consult is still pending Physical Exam Vital Signs: Temp Pulse Resp BP Pulse Ox 97.9 F 75 20 128/75 H 99 09/20/16 20:02 09/20/16 20:02 09/20/16 20:02 09/20/16 20:02 09/20/16 16:28 Intake & Output 09/20/16 09/21/16 09/22/16 00:59 00:59 00:59 Intake Total 3059 925 Output Total 1050 150 200 Balance 2008 725 Weight 75.3 kg 69.2 kg 69.2 kg General appearance: PRESENT: no acute distress, disheveled, thin Head exam: PRESENT: atraumatic, normocephalic Eye exam: PRESENT: conjunctiva pink, EOMI, PERRLA. ABSENT: scleral icterus Ear exam: PRESENT: normal external ear exam Mouth exam: PRESENT: moist, tongue midline Neck exam: ABSENT: carotid bruit, JVD, lymphadenopathy, thyromegaly Respiratory exam: PRESENT: clear to auscultation benjamin. ABSENT: rales, rhonchi, wheezes Cardiovascular exam: PRESENT: RRR. ABSENT: diastolic murmur, rubs, systolic murmur Pulses: PRESENT: normal dorsalis pedis pul Vascular exam: PRESENT: normal capillary refill GI/Abdominal exam: PRESENT: normal bowel sounds, soft. ABSENT: distended, guarding, mass, organolmegaly, rebound, tenderness Rectal exam: PRESENT: deferred Extremities exam: PRESENT: full ROM. ABSENT: calf tenderness, clubbing, pedal edema Neurological exam: PRESENT: awake, CN II-XII grossly intact Psychiatric exam: PRESENT: depressed, unusual affect. ABSENT: homicidal ideation, suicidal ideation Skin exam: PRESENT: dry, intact, warm. ABSENT: cyanosis, rash Results Laboratory Results: 09/20/16 06:20 09/20/16 06:20 09/20/16 09/21/16 23:41 08:21 Phosphorus 2.9 3.6 Magnesium 1.9 1.8 09/16/16 06:00 CK-MB (CK-2) 9.45 H Impressions: Chest X-Ray 09/15/16 10:00 IMPRESSION: Mild vascular congestion. Head CT 09/16/16 00:00 IMPRESSION: Limited negative study Head MRI 09/19/16 19:09 IMPRESSION: NORMAL MRI OF THE BRAIN WITHOUT INTRAVENOUS GADOLINIUM CONTRAST. Assessment & Plan - Diagnosis (1) Acute encephalopathy Is this a current diagnosis for this admission?: YesPlan: Patient's abnormal behavior is persistent He has had several admissions prior with depressed moods withdrawal agitation confusion A psychiatric consult is pending In the meantime we will initiate Depakote 500 mg daily as her mood modulator We will continue high-dose thiamine and treat him as possible Wernicke's encephalopathy Noted that head CT head MRI TSH vitamin B-12 were normal (2) DKA (diabetic ketoacidoses) Qualifiers: Diabetes mellitus type: type 1 Diabetes mellitus complication detail: without coma Qualified Code(s): E10.10 - Type 1 diabetes mellitus with ketoacidosis without coma Is this a current diagnosis for this admission?: Yes - Time Time Spent with patient: 25-34 minutes
[2016-09-21] MEDS ORDERED: DIVALPROEX SODIUM 500 MG TAB.SR.24H PO ONE (16:00)
[2016-09-21 17:13] LABS: MAGNESIUM 1.7 mg/dL (1.6-2.3); PHOSPHORUS 3.1 mg/dL (2.5-4.5)
[2016-09-21] MEDS: INSULIN LISPRO 100 UNIT/ML 3 ML VIAL SUBCUT PRN (21:33)
[2016-09-22 01:26] LABS: MAGNESIUM 1.8 mg/dL (1.6-2.3); PHOSPHORUS 3.1 mg/dL (2.5-4.5)
[2016-09-22] MEDS: INSULIN GLARGINE,HUM.REC.ANLOG 300 UNIT/3 ML INSULN.PEN SUBCUT SCH ×2 (06:21→17:39)
[2016-09-22] MEDS: THIAMINE HCL 500 MG in NORMAL SALINE 50 ML IV SCH ×3 (06:21→22:10)
[2016-09-22 08:00] LABS: ABSOLUTE EOSINOPHILS # (AUTO) 0.2 10^3/uL (0.0-0.6); ABSOLUTE LYMPHOCYTES (AUTO) 1.4 10^3/uL (0.5-4.7); ABSOLUTE MONOCYTES (AUTO) 0.8 10^3/uL (0.1-1.4); ABSOLUTE NEUT (AUTO) 4.3 10^3/uL (1.7-8.2); BASOPHILS % (AUTO) 0.5 % (0-2); EOSINOPHILS % (AUTO) 2.6 % (0-6); HEMATOCRIT 37.1 % (37.9-51.0); HGB HCT DIFFERENCE -1.1; LYMPHOCYTES % (AUTO) 21.2 % (13-45); MEAN CORPUSCULAR HEMOGLOBIN 24.2 pg (27.0-33.4); MEAN CORPUSCULAR HGB CONC 32.4 g/dL (32.0-36.0); MEAN CORPUSCULAR VOLUME 75 fl (80-97); MONOCYTES % (AUTO) 11.5 % (3-13); RED BLOOD COUNT 4.96 10^6/uL (4.35-5.55); RED CELL DISTRIBUTION WIDTH 13.7 % (11.5-14.0); SEGMENTED NEUTROPHILS % (AUTO) 64.2 % (42-78); WHITE BLOOD COUNT 6.6 10^3/uL (4.0-10.5)
[2016-09-22 08:18] LABS: ALANINE AMINOTRANSFERASE 62 U/L (21-72); ALBUMIN 3.4 g/dL (3.5-5.0); ALKALINE PHOSPHATASE 97 U/L (38-126); ANION GAP 11 (5-19); ASPARTATE AMINO TRANSFERASE 43 U/L (17-59); BILIRUBIN,DIRECT 0.2 mg/dL (0.0-0.4); BILIRUBIN,TOTAL 0.7 mg/dL (0.2-1.3); BLOOD UREA NITROGEN 3 mg/dL (7-20); CALCIUM 8.9 mg/dL (8.4-10.2); CARBON DIOXIDE 25 mmol/L (22-30); CHLORIDE 106 mmol/L (98-107); CREATININE RESULT 0.55 mg/dL (0.52-1.25); GLUCOSE 203 mg/dL (75-110); MAGNESIUM 1.7 mg/dL (1.6-2.3); PHOSPHORUS 3.1 mg/dL (2.5-4.5); POTASSIUM 3.5 mmol/L (3.6-5.0); SODIUM 141.7 mmol/L (137-145); TOTAL PROTEIN 5.8 g/dL (6.3-8.2)
[2016-09-22] MEDS: ENOXAPARIN SODIUM INJ 40 MG/0.4 ML DISP.SYRIN SUBCUT SCH (09:51)
[2016-09-22] MEDS: DIVALPROEX SODIUM 500 MG TAB.SR.24H PO SCH (10:34)
[2016-09-22] MEDS: INSULIN LISPRO 100 UNIT/ML 3 ML VIAL SUBCUT PRN (11:24)
--- NOTE | 2016-09-22 15:05 | PDOC PROGRESS REPORT ---
Subjective Progress Note for:: 09/22/16 Subjective:: Patient is doing much better Mentation has improved he is talking conversing answering questions appropriately Eating his meals Patient likely and may be discharged tomorrow with social service support Physical Exam Vital Signs: Temp Pulse Resp BP Pulse Ox 98.3 F 63 18 147/70 H 100 09/22/16 12:00 09/22/16 12:00 09/22/16 12:00 09/22/16 12:00 09/22/16 12:00 Intake & Output 09/21/16 09/22/16 09/23/16 00:59 00:59 00:59 Intake Total 2451 947 Output Total 150 1100 Balance -150 1351 947 Weight 69.2 kg 69.2 kg 68.5 kg General appearance: PRESENT: no acute distress, well-developed, well-nourished Head exam: PRESENT: atraumatic, normocephalic Eye exam: PRESENT: conjunctiva pink, EOMI, PERRLA. ABSENT: scleral icterus Ear exam: PRESENT: normal external ear exam Mouth exam: PRESENT: moist, tongue midline Neck exam: ABSENT: carotid bruit, JVD, lymphadenopathy, thyromegaly Respiratory exam: PRESENT: clear to auscultation benjamin. ABSENT: rales, rhonchi, wheezes Cardiovascular exam: PRESENT: RRR. ABSENT: diastolic murmur, rubs, systolic murmur Pulses: PRESENT: normal dorsalis pedis pul Vascular exam: PRESENT: normal capillary refill GI/Abdominal exam: PRESENT: normal bowel sounds, soft. ABSENT: distended, guarding, mass, organolmegaly, rebound, tenderness Rectal exam: PRESENT: deferred Extremities exam: PRESENT: full ROM. ABSENT: calf tenderness, clubbing, pedal edema Neurological exam: PRESENT: alert, awake, oriented to person, oriented to place , oriented to time, oriented to situation, CN II-XII grossly intact. ABSENT: motor sensory deficit Psychiatric exam: PRESENT: appropriate affect, normal mood. ABSENT: homicidal ideation, suicidal ideation Skin exam: PRESENT: dry, intact, warm. ABSENT: cyanosis, rash Results Laboratory Results: 09/22/16 07:53 09/22/16 07:53 09/21/16 09/22/16 09/22/16 16:45 00:39 07:53 WBC 6.6 RBC 4.96 Hgb 12.0 L Hct 37.1 L MCV 75 L MCH 24.2 L MCHC 32.4 RDW 13.7 Plt Count 294 Seg Neutrophils % 64.2 Lymphocytes % 21.2 Monocytes % 11.5 Eosinophils % 2.6 Basophils % 0.5 Absolute Neutrophils 4.3 Absolute Lymphocytes 1.4 Absolute Monocytes 0.8 Absolute Eosinophils 0.2 Absolute Basophils 0.0 Sodium Potassium Chloride Carbon Dioxide Anion Gap BUN Creatinine Est GFR ( Amer) Est GFR (Non-Af Amer) Glucose Calcium Phosphorus 3.1 3.1 Magnesium 1.7 1.8 Total Bilirubin AST ALT Alkaline Phosphatase Total Protein Albumin 09/22/16 07:53 WBC RBC Hgb Hct MCV MCH MCHC RDW Plt Count Seg Neutrophils % Lymphocytes % Monocytes % Eosinophils % Basophils % Absolute Neutrophils Absolute Lymphocytes Absolute Monocytes Absolute Eosinophils Absolute Basophils Sodium 141.7 Potassium 3.5 L Chloride 106 Carbon Dioxide 25 Anion Gap 11 BUN 3 L Creatinine 0.55 Est GFR ( Amer) > 60 Est GFR (Non-Af Amer) > 60 Glucose 203 H Calcium 8.9 Phosphorus 3.1 Magnesium 1.7 Total Bilirubin 0.7 AST 43 ALT 62 Alkaline Phosphatase 97 Total Protein 5.8 L Albumin 3.4 L 09/16/16 06:00 CK-MB (CK-2) 9.45 H Impressions: Chest X-Ray 09/15/16 10:00 IMPRESSION: Mild vascular congestion. Head CT 09/16/16 00:00 IMPRESSION: Limited negative study Head MRI 09/19/16 19:09 IMPRESSION: NORMAL MRI OF THE BRAIN WITHOUT INTRAVENOUS GADOLINIUM CONTRAST. Assessment & Plan - Diagnosis (1) Acute encephalopathy Is this a current diagnosis for this admission?: YesPlan: Has resolved Patient had been evaluated by psychiatry in 2016 And at that time it was felt that he did not need any medications The encephalopathy lasted several days; with the patient being extremely belligerent ;withdrawn; refusing to eat We have started Depakote 500 mg daily with some improvement of his moods we will discuss the case is again tomorrow with psychiatry and have him followed as an outpatient (2) DKA (diabetic ketoacidoses) Qualifiers: Diabetes mellitus type: type 1 Diabetes mellitus complication detail: without coma Qualified Code(s): E10.10 - Type 1 diabetes mellitus with ketoacidosis without coma Is this a current diagnosis for this admission?: YesPlan: Continue present insulin management - Time Time Spent with patient: 25-34 minutes
[2016-09-22 16:46] LABS: MAGNESIUM 1.8 mg/dL (1.6-2.3); PHOSPHORUS 3.5 mg/dL (2.5-4.5)
[2016-09-23 01:23] LABS: MAGNESIUM 1.7 mg/dL (1.6-2.3); PHOSPHORUS 3.3 mg/dL (2.5-4.5)
[2016-09-23] MEDS: INSULIN GLARGINE,HUM.REC.ANLOG 300 UNIT/3 ML INSULN.PEN SUBCUT SCH (06:33)
[2016-09-23] MEDS: THIAMINE HCL 500 MG in NORMAL SALINE 50 ML IV SCH ×2 (06:36→15:14)
[2016-09-23 09:05] LABS: MAGNESIUM 1.8 mg/dL (1.6-2.3); PHOSPHORUS 3.1 mg/dL (2.5-4.5)
[2016-09-23] MEDS: ENOXAPARIN SODIUM INJ 40 MG/0.4 ML DISP.SYRIN SUBCUT SCH (10:44)
[2016-09-23] MEDS: DIVALPROEX SODIUM 500 MG TAB.SR.24H PO SCH (10:44)
[2016-09-23] MEDS: INSULIN LISPRO 100 UNIT/ML 3 ML VIAL SUBCUT PRN ×2 (11:23→20:33)
--- NOTE | 2016-09-23 18:25 | PDOC PROGRESS REPORT ---
Subjective Progress Note for:: 09/23/16 Subjective:: Patient's condition has improved greatly His mentation is clear He is ambulating with a walker Patient's blood sugars are still running on the low side Physical Exam Vital Signs: Temp Pulse Resp BP Pulse Ox 98.0 F 61 16 146/78 H 100 09/23/16 15:45 09/23/16 15:45 09/23/16 15:45 09/23/16 15:45 09/23/16 15:45 Intake & Output 09/22/16 09/23/16 09/24/16 00:59 00:59 00:59 Intake Total 2451 1547 1855 Output Total 1100 900 Balance 8613 056 1799 Weight 69.2 kg 68.5 kg 72.6 kg General appearance: PRESENT: no acute distress, well-developed, well-nourished Head exam: PRESENT: atraumatic, normocephalic Eye exam: PRESENT: conjunctiva pink, EOMI, PERRLA. ABSENT: scleral icterus Ear exam: PRESENT: normal external ear exam Mouth exam: PRESENT: moist, tongue midline Neck exam: ABSENT: carotid bruit, JVD, lymphadenopathy, thyromegaly Respiratory exam: PRESENT: clear to auscultation benjamin. ABSENT: rales, rhonchi, wheezes Cardiovascular exam: PRESENT: RRR. ABSENT: diastolic murmur, rubs, systolic murmur Pulses: PRESENT: normal dorsalis pedis pul Vascular exam: PRESENT: normal capillary refill GI/Abdominal exam: PRESENT: normal bowel sounds, soft. ABSENT: distended, guarding, mass, organolmegaly, rebound, tenderness Rectal exam: PRESENT: deferred Extremities exam: PRESENT: full ROM. ABSENT: calf tenderness, clubbing, pedal edema Neurological exam: PRESENT: alert, awake, oriented to person, oriented to place , oriented to time, oriented to situation, CN II-XII grossly intact. ABSENT: motor sensory deficit Psychiatric exam: PRESENT: appropriate affect, normal mood Skin exam: PRESENT: dry, intact, warm. ABSENT: cyanosis, rash Results Laboratory Results: 09/22/16 07:53 09/22/16 07:53 09/23/16 09/23/16 00:45 08:45 Phosphorus 3.3 3.1 Magnesium 1.7 1.8 09/16/16 06:00 CK-MB (CK-2) 9.45 H Impressions: Chest X-Ray 09/15/16 10:00 IMPRESSION: Mild vascular congestion. Head CT 09/16/16 00:00 IMPRESSION: Limited negative study Head MRI 09/19/16 19:09 IMPRESSION: NORMAL MRI OF THE BRAIN WITHOUT INTRAVENOUS GADOLINIUM CONTRAST. Assessment & Plan - Diagnosis (1) Acute encephalopathy Is this a current diagnosis for this admission?: YesPlan: Has resolved (2) DKA (diabetic ketoacidoses) Qualifiers: Diabetes mellitus type: type 1 Diabetes mellitus complication detail: without coma Qualified Code(s): E10.10 - Type 1 diabetes mellitus with ketoacidosis without coma Is this a current diagnosis for this admission?: YesPlan: we will decrease Lantus insulin - Time Time Spent with patient: Patient may be discharged to assisted living bed is available Patient was previously in [facility] assisted living Time Spent with patient: 25-34 minutes
[2016-09-23] MEDS ORDERED: THIAMINE HCL 100 MG TABLET PO ONE (21:00)
[2016-09-23] MEDS: LORAZEPAM INJ 2 MG/1 ML VIAL IV PRN (21:44)
[2016-09-24] MEDS: ENOXAPARIN SODIUM INJ 40 MG/0.4 ML DISP.SYRIN SUBCUT SCH (08:24)
[2016-09-24] MEDS: INSULIN LISPRO 100 UNIT/ML 3 ML VIAL SUBCUT PRN ×3 (08:27→16:35)
[2016-09-24] MEDS: THIAMINE HCL 100 MG TABLET PO SCH (09:43)
[2016-09-24] MEDS ORDERED: INSULIN GLARGINE,HUM.REC.ANLOG 300 UNIT/3 ML INSULN.PEN SUBCUT SCH ×2 (10:00)
[2016-09-24] MEDS: DIVALPROEX SODIUM 500 MG TAB.SR.24H PO SCH (11:05)
--- NOTE | 2016-09-24 13:14 | PSYCHOLOGICAL NOTE ---
Psych Note - Psych Note Psych Note: 51-year-old diabetic male who takes Humalog only presents by EMS for altered mental status. It is noted that the patient woke up friends, appeared confused breathing fast. Patient blood sugar has been elevated over the past 3-4 days. Patient unable to provide further information Clinician attempted to conduct evaluation with patient. Patient was unable to communicate; Unintelligible mumbling. Clinician observed the patient to be currently in soft restraints. Evaluation will have to occur at a later time.
--- NOTE | 2016-09-24 13:22 | PSYCHOLOGICAL NOTE ---
Psych Note - Psych Note Psych Note: 51-year-old diabetic male who takes Humalog only presents by EMS for altered mental status. It is noted that the patient woke up friends, appeared confused breathing fast. Patient blood sugar has been elevated over the past 3-4 days. Patient unable to provide further information Clinician unable to conduct evaluation because ED [facility] patient flow. Clinician conducted a chart review and notes continued concerns for aggressive/ belligerent behaviours. Evaluation will have to occur at a later time.
--- NOTE | 2016-09-24 16:38 | PDOC PROGRESS REPORT ---
Subjective Progress Note for:: 09/24/16 Subjective:: This a follow-up visit for dka. Patient was resting in bed this morning when I saw him. He was not complaining of any everything he reports however that he slept well. He confirms that he is waiting to go to assisted living. Physical Exam Vital Signs: Temp Pulse Resp BP Pulse Ox 98.3 F 58 L 18 128/70 H 100 09/24/16 15:02 09/24/16 15:02 09/24/16 15:02 09/24/16 15:02 09/24/16 15:02 Intake & Output 09/23/16 09/24/16 09/25/16 06:59 06:59 06:59 Intake Total 1495 1520 900 Output Total 900 Balance 595 1520 900 Weight 72.6 kg 68.5 kg General appearance: PRESENT: no acute distress, thin, well-developed Head exam: PRESENT: atraumatic, normocephalic Eye exam: PRESENT: conjunctiva pink. ABSENT: scleral icterus Mouth exam: PRESENT: moist, tongue midline Teeth exam: PRESENT: poor dentation Respiratory exam: PRESENT: clear to auscultation benjamin - With equal rise and fall of the chest. ABSENT: crackles, rhonchi, wheezes Cardiovascular exam: PRESENT: RRR - No murmurs rubs or gallops Pulses: PRESENT: +1 pedal pulses bilateral GI/Abdominal exam: PRESENT: normal bowel sounds, soft. ABSENT: distended, tenderness Neurological exam: PRESENT: alert, awake, oriented to person, oriented to place , oriented to time, oriented to situation, CN II-XII grossly intact Skin exam: PRESENT: dry, normal color, warm Results Laboratory Results: 09/22/16 07:53 09/22/16 07:53 09/16/16 06:00 CK-MB (CK-2) 9.45 H Impressions: Chest X-Ray 09/15/16 10:00 IMPRESSION: Mild vascular congestion. Head CT 09/16/16 00:00 IMPRESSION: Limited negative study Head MRI 09/19/16 19:09 IMPRESSION: NORMAL MRI OF THE BRAIN WITHOUT INTRAVENOUS GADOLINIUM CONTRAST. Assessment & Plan - Diagnosis (1) DKA (diabetic ketoacidoses) Qualifiers: Diabetes mellitus type: type 1 Diabetes mellitus complication detail: without coma Qualified Code(s): E10.10 - Type 1 diabetes mellitus with ketoacidosis without coma Is this a current diagnosis for this admission?: YesPlan: Resolved (2) Acute encephalopathy Is this a current diagnosis for this admission?: YesPlan: Resolve (3) Acute kidney injury Is this a current diagnosis for this admission?: YesPlan: Resolved (4) COPD (chronic obstructive pulmonary disease) Qualifiers: COPD type: unspecified COPD Qualified Code(s): J44.9 - Chronic obstructive pulmonary disease, unspecified Plan: Stable. Continue various inhalers (5) Dehydration Plan: Resolved - Time Time Spent with patient: 15-24 minutes - Inpatient Certification Medical Necessity: Other - Awaiting placement after resolution of DKA
--- NOTE | 2016-09-24 17:05 | PSYCHOLOGICAL NOTE ---
Psych Note - Psych Note Psych Note: 51-year-old diabetic male who takes Humalog only presents by EMS for altered mental status. It is noted that the patient woke up friends, appeared confused breathing fast. Patient blood sugar has been elevated over the past 3-4 days. Patient unable to provide further information Clinician contacted patient's attending nurse to confirm continued need for evaluation. Clinician was told there was no need for a psychiatric consult. Consult will be closed as of today, if there is a need for a psychiatric consult please request a new consult. Thank you
[2016-09-25] MEDS: DIVALPROEX SODIUM 500 MG TAB.SR.24H PO SCH (11:14)
[2016-09-25] MEDS: THIAMINE HCL 100 MG TABLET PO SCH ×2 (11:14→11:20)
[2016-09-25] MEDS: ENOXAPARIN SODIUM INJ 40 MG/0.4 ML DISP.SYRIN SUBCUT SCH ×2 (11:15→11:20)
[2016-09-25] MEDS: INSULIN GLARGINE,HUM.REC.ANLOG 300 UNIT/3 ML INSULN.PEN SUBCUT SCH (11:16)
[2016-09-25] MEDS: INSULIN LISPRO 100 UNIT/ML 3 ML VIAL SUBCUT PRN ×2 (13:56→15:08)
[2016-09-25] MEDS ORDERED: POLYETHYLENE GLYCOL 3350 POWDER 17 GM/1 PACKET PO ONE (15:00)
--- NOTE | 2016-09-25 17:29 | PDOC PROGRESS REPORT ---
Subjective Progress Note for:: 09/25/16 Subjective:: This a follow-up visit for dka. Patient was resting in bed this morning when I saw him. He was not complaining of any everything he reports however that he slept well. Blood sugars have been running high Physical Exam Vital Signs: Temp Pulse Resp BP Pulse Ox 97.9 F 58 L 16 133/69 H 100 09/25/16 16:13 09/25/16 16:13 09/25/16 16:13 09/25/16 16:13 09/25/16 16:13 Intake & Output 09/24/16 09/25/16 09/26/16 06:59 06:59 06:59 Intake Total 1520 1800 750 Balance 1520 1800 750 Weight 68.5 kg 70.9 kg PHYSICAL EXAM: GENERAL: This is a well-developed well-nourished thin white male resting in no acute distress. HEART: Regular rate and rhythm. No murmurs rubs or gallops. LUNGS: Clear to auscultation bilaterally with equal rise and fall of the chest. ABDOMEN: Soft, nontender, nondistended with normoactive bowel sounds EXTREMITIES: No clubbing cyanosis or edema. 2+ peripheral pulses. NEURO: Awake, alert, oriented x-3. Cranial nerves II through XII grossly intact. PSYCH: Flat affect. Results Laboratory Results: 09/22/16 07:53 09/22/16 07:53 09/16/16 06:00 CK-MB (CK-2) 9.45 H Impressions: Chest X-Ray 09/15/16 10:00 IMPRESSION: Mild vascular congestion. Head CT 09/16/16 00:00 IMPRESSION: Limited negative study Head MRI 09/19/16 19:09 IMPRESSION: NORMAL MRI OF THE BRAIN WITHOUT INTRAVENOUS GADOLINIUM CONTRAST. Assessment & Plan - Diagnosis (1) DKA (diabetic ketoacidoses) Qualifiers: Diabetes mellitus type: type 1 Diabetes mellitus complication detail: without coma Qualified Code(s): E10.10 - Type 1 diabetes mellitus with ketoacidosis without coma Is this a current diagnosis for this admission?: YesPlan: Resolved (2) Acute encephalopathy Is this a current diagnosis for this admission?: Yes (3) Acute kidney injury Is this a current diagnosis for this admission?: YesPlan: Resolved (4) COPD (chronic obstructive pulmonary disease) Qualifiers: COPD type: unspecified COPD Qualified Code(s): J44.9 - Chronic obstructive pulmonary disease, unspecified Plan: Stable. Continue various inhalers (5) Dehydration Plan: Resolved - Time Time Spent with patient: 15-24 minutes - Inpatient Certification Medical Necessity: Other - Awaiting placement
[2016-09-26] MEDS: INSULIN LISPRO 100 UNIT/ML 3 ML VIAL SUBCUT PRN ×4 (08:19→20:36)
[2016-09-26] MEDS: INSULIN GLARGINE,HUM.REC.ANLOG 300 UNIT/3 ML INSULN.PEN SUBCUT SCH (09:45)
[2016-09-26] MEDS: POLYETHYLENE GLYCOL 3350 POWDER 17 GM/1 PACKET PO SCH (09:45)
[2016-09-26] MEDS: ENOXAPARIN SODIUM INJ 40 MG/0.4 ML DISP.SYRIN SUBCUT SCH (10:06)
[2016-09-26] MEDS: DIVALPROEX SODIUM 500 MG TAB.SR.24H PO SCH (11:01)
[2016-09-26] MEDS: THIAMINE HCL 100 MG TABLET PO SCH (11:01)
--- NOTE | 2016-09-26 16:12 | PDOC PROGRESS REPORT ---
Subjective Progress Note for:: 09/26/16 Subjective:: This a follow-up visit for dka. Patient was resting in bed this morning when I saw him. He was not complaining of any everything. He asked if he could shower today Physical Exam Vital Signs: Temp Pulse Resp BP Pulse Ox 98.0 F 62 12 124/77 100 09/26/16 08:31 09/26/16 08:31 09/26/16 08:31 09/26/16 08:31 09/26/16 08:31 Intake & Output 09/25/16 09/26/16 09/27/16 06:59 06:59 06:59 Intake Total 1451 071 5571 Balance 3108 354 6487 Weight 70.9 kg 72.3 kg PHYSICAL EXAM: GENERAL: This is a well-developed well-nourished thin white male resting in no acute distress. HEART: Regular rate and rhythm. No murmurs rubs or gallops. LUNGS: Clear to auscultation bilaterally with equal rise and fall of the chest. ABDOMEN: Soft, nontender, nondistended with normoactive bowel sounds EXTREMITIES: No clubbing cyanosis or edema. 2+ peripheral pulses. NEURO: Awake, alert, oriented x-3. Cranial nerves II through XII grossly intact. Results Laboratory Results: 09/22/16 07:53 09/22/16 07:53 09/16/16 06:00 CK-MB (CK-2) 9.45 H Impressions: Chest X-Ray 09/15/16 10:00 IMPRESSION: Mild vascular congestion. Head CT 09/16/16 00:00 IMPRESSION: Limited negative study Head MRI 09/19/16 19:09 IMPRESSION: NORMAL MRI OF THE BRAIN WITHOUT INTRAVENOUS GADOLINIUM CONTRAST. Assessment & Plan - Diagnosis (1) DKA (diabetic ketoacidoses) Qualifiers: Diabetes mellitus type: type 1 Diabetes mellitus complication detail: without coma Qualified Code(s): E10.10 - Type 1 diabetes mellitus with ketoacidosis without coma Is this a current diagnosis for this admission?: YesPlan: Resolved (2) Acute encephalopathy Is this a current diagnosis for this admission?: YesPlan: Resolve (3) Acute kidney injury Is this a current diagnosis for this admission?: YesPlan: Resolved (4) COPD (chronic obstructive pulmonary disease) Qualifiers: COPD type: unspecified COPD Qualified Code(s): J44.9 - Chronic obstructive pulmonary disease, unspecified Plan: Stable. Continue various inhalers (5) Dehydration Plan: Resolved - Time Time Spent with patient: Less than 15 minutes - Inpatient Certification Medical Necessity: Other - Waiting on placement. A different assisted living facility was referred out today.
[2016-09-27] MEDS: INSULIN GLARGINE,HUM.REC.ANLOG 300 UNIT/3 ML INSULN.PEN SUBCUT SCH (10:01)
[2016-09-27] MEDS: ENOXAPARIN SODIUM INJ 40 MG/0.4 ML DISP.SYRIN SUBCUT SCH (10:02)
[2016-09-27] MEDS: THIAMINE HCL 100 MG TABLET PO SCH (10:02)
[2016-09-27] MEDS: POLYETHYLENE GLYCOL 3350 POWDER 17 GM/1 PACKET PO SCH (10:02)
[2016-09-27] MEDS: DIVALPROEX SODIUM 500 MG TAB.SR.24H PO SCH (11:49)
[2016-09-27] MEDS: INSULIN LISPRO 100 UNIT/ML 3 ML VIAL SUBCUT PRN ×2 (11:50→16:05)
--- NOTE | 2016-09-27 15:14 | PDOC PROGRESS REPORT ---
Subjective Progress Note for:: 09/27/16 Subjective:: This a follow-up visit for dka. Patient was resting in bed this morning when I saw him. He was not complaining of any everything. Physical Exam Vital Signs: Temp Pulse Resp BP Pulse Ox 98.0 F 63 16 107/57 L 100 09/27/16 07:08 09/27/16 07:08 09/27/16 07:08 09/27/16 07:08 09/27/16 07:08 Intake & Output 09/26/16 09/27/16 09/28/16 06:59 06:59 06:59 Intake Total 750 2256 Balance 750 2256 Weight 72.3 kg 73.2 kg PHYSICAL EXAM: GENERAL: This is a well-developed well-nourished thin white male resting in no acute distress. HEART: Regular rate and rhythm. No murmurs rubs or gallops. LUNGS: Clear to auscultation bilaterally with equal rise and fall of the chest. ABDOMEN: Soft, nontender, nondistended with normoactive bowel sounds EXTREMITIES: No clubbing cyanosis or edema. 2+ peripheral pulses. NEURO: Awake, alert, oriented x-3. Cranial nerves II through XII grossly intact. Results Laboratory Results: 09/22/16 07:53 09/22/16 07:53 09/16/16 06:00 CK-MB (CK-2) 9.45 H Impressions: Chest X-Ray 09/15/16 10:00 IMPRESSION: Mild vascular congestion. Head CT 09/16/16 00:00 IMPRESSION: Limited negative study Head MRI 09/19/16 19:09 IMPRESSION: NORMAL MRI OF THE BRAIN WITHOUT INTRAVENOUS GADOLINIUM CONTRAST. Assessment & Plan - Diagnosis (1) DKA (diabetic ketoacidoses) Qualifiers: Diabetes mellitus type: type 1 Diabetes mellitus complication detail: without coma Qualified Code(s): E10.10 - Type 1 diabetes mellitus with ketoacidosis without coma Is this a current diagnosis for this admission?: YesPlan: Resolved. Blood sugars are reasonable (2) Acute encephalopathy Is this a current diagnosis for this admission?: YesPlan: Resolve (3) Acute kidney injury Is this a current diagnosis for this admission?: YesPlan: Resolved (4) COPD (chronic obstructive pulmonary disease) Qualifiers: COPD type: unspecified COPD Qualified Code(s): J44.9 - Chronic obstructive pulmonary disease, unspecified Plan: Stable. Continue various inhalers (5) Dehydration Plan: Resolved - Time Time Spent with patient: 15-24 minutes - Inpatient Certification Medical Necessity: Other - Waiting placement
[2016-09-28] MEDS: ENOXAPARIN SODIUM INJ 40 MG/0.4 ML DISP.SYRIN SUBCUT SCH (10:32)
[2016-09-28] MEDS: THIAMINE HCL 100 MG TABLET PO SCH (10:34)
[2016-09-28] MEDS: POLYETHYLENE GLYCOL 3350 POWDER 17 GM/1 PACKET PO SCH (10:38)
[2016-09-28] MEDS: DIVALPROEX SODIUM 500 MG TAB.SR.24H PO SCH (10:40)
[2016-09-28] MEDS: INSULIN GLARGINE,HUM.REC.ANLOG 300 UNIT/3 ML INSULN.PEN SUBCUT SCH (11:29)
[2016-09-28] MEDS: INSULIN LISPRO 100 UNIT/ML 3 ML VIAL SUBCUT PRN (13:18)
--- NOTE | 2016-09-28 14:47 | PDOC PROGRESS REPORT ---
Subjective Progress Note for:: 09/28/16 Subjective:: This a follow-up visit for dka. Patient was resting in bed this morning when I saw him. He was not complaining of any everything. [facility] is [facility] Physical Exam Vital Signs: Temp Pulse Resp BP Pulse Ox 97.9 F 60 12 117/68 100 09/28/16 08:50 09/28/16 08:50 09/28/16 08:50 09/28/16 08:50 09/28/16 08:50 Intake & Output 09/27/16 09/28/16 09/29/16 06:59 06:59 06:59 Intake Total 2256 3637 Balance 2256 3637 Weight 73.2 kg 73.4 kg PHYSICAL EXAM: GENERAL: This is a well-developed well-nourished thin white male resting in no acute distress. HEART: Regular rate and rhythm. No murmurs rubs or gallops. LUNGS: Clear to auscultation bilaterally with equal rise and fall of the chest. ABDOMEN: Soft, nontender, nondistended with normoactive bowel sounds EXTREMITIES: No clubbing cyanosis or edema. 2+ peripheral pulses. NEURO: Awake, alert, oriented x-3. Cranial nerves II through XII grossly intact. Results Laboratory Results: 09/22/16 07:53 09/22/16 07:53 09/16/16 06:00 CK-MB (CK-2) 9.45 H Impressions: Chest X-Ray 09/15/16 10:00 IMPRESSION: Mild vascular congestion. Head CT 09/16/16 00:00 IMPRESSION: Limited negative study Head MRI 09/19/16 19:09 IMPRESSION: NORMAL MRI OF THE BRAIN WITHOUT INTRAVENOUS GADOLINIUM CONTRAST. Assessment & Plan - Diagnosis (1) DKA (diabetic ketoacidoses) Qualifiers: Diabetes mellitus type: type 1 Diabetes mellitus complication detail: without coma Qualified Code(s): E10.10 - Type 1 diabetes mellitus with ketoacidosis without coma Plan: Resolved. Blood sugars are reasonable (2) Acute encephalopathy Plan: Resolved (3) Acute kidney injury Plan: Resolved (4) COPD (chronic obstructive pulmonary disease) Qualifiers: COPD type: unspecified COPD Qualified Code(s): J44.9 - Chronic obstructive pulmonary disease, unspecified Plan: Stable. Continue various inhalers (5) Dehydration Plan: Resolved - Time Time Spent with patient: Less than 15 minutes - Inpatient Certification Medical Necessity: Other - Awaiting placement
[2016-09-29] MEDS: INSULIN GLARGINE,HUM.REC.ANLOG 300 UNIT/3 ML INSULN.PEN SUBCUT SCH (10:47)
[2016-09-29] MEDS: POLYETHYLENE GLYCOL 3350 POWDER 17 GM/1 PACKET PO SCH (10:47)
[2016-09-29] MEDS: ENOXAPARIN SODIUM INJ 40 MG/0.4 ML DISP.SYRIN SUBCUT SCH (10:53)
[2016-09-29] MEDS: THIAMINE HCL 100 MG TABLET PO SCH (10:53)
[2016-09-29] MEDS: DIVALPROEX SODIUM 500 MG TAB.SR.24H PO SCH (10:53)
--- NOTE | 2016-09-29 13:44 | PDOC PROGRESS REPORT ---
Subjective Progress Note for:: 09/29/16 Subjective:: This a follow-up visit for dka. Patient was resting in bed this morning when I saw him. Patient was complaining that he couldn't go out of the hospital to break $100 bill. Had a friend of his, up and get 100 out bill go out and then bring him back a fish sandwich from [employer] and fried onion rings. The patient did try to leave the floor but security was called. Fortunately his sugars are now greater than 400. He is quite perturbed at bedside Physical Exam Vital Signs: Temp Pulse Resp BP Pulse Ox 98.0 F 92 19 134/90 H 100 09/29/16 12:00 09/29/16 12:00 09/29/16 12:00 09/29/16 12:00 09/29/16 12:00 Intake & Output 09/28/16 09/29/16 09/30/16 06:59 06:59 06:59 Intake Total 3637 240 Output Total 1 Balance 3637 239 Weight 73.4 kg 73 kg PHYSICAL EXAM: GENERAL: This is a well-developed well-nourished thin white male resting in no acute distress. HEART: Regular rate and rhythm. No murmurs rubs or gallops. LUNGS: Clear to auscultation bilaterally with equal rise and fall of the chest. ABDOMEN: Soft, nontender, nondistended with normoactive bowel sounds EXTREMITIES: No clubbing cyanosis or edema. 2+ peripheral pulses. NEURO: Awake, alert, oriented x-3. Cranial nerves II through XII grossly intact. Results Laboratory Results: 09/22/16 07:53 09/22/16 07:53 09/16/16 06:00 CK-MB (CK-2) 9.45 H Impressions: Chest X-Ray 09/15/16 10:00 IMPRESSION: Mild vascular congestion. Head CT 09/16/16 00:00 IMPRESSION: Limited negative study Head MRI 09/19/16 19:09 IMPRESSION: NORMAL MRI OF THE BRAIN WITHOUT INTRAVENOUS GADOLINIUM CONTRAST. Assessment & Plan - Diagnosis (1) DKA (diabetic ketoacidoses) Qualifiers: Diabetes mellitus type: type 1 Diabetes mellitus complication detail: without coma Qualified Code(s): E10.10 - Type 1 diabetes mellitus with ketoacidosis without coma Plan: Resolved. Sugars are unreasonable today because patient had an unauthorized meal. Reassured him that to treat himself every now and again is okay but that he needs to be conscientious of his blood sugars (2) Acute encephalopathy Plan: Resolved (3) Acute kidney injury Plan: Resolved (4) COPD (chronic obstructive pulmonary disease) Qualifiers: COPD type: unspecified COPD Qualified Code(s): J44.9 - Chronic obstructive pulmonary disease, unspecified Plan: Stable. Continue various inhalers (5) Dehydration Plan: Resolved - Time Time Spent with patient: Less than 15 minutes - Inpatient Certification Medical Necessity: Significant Comorbidiites Make Outpatient Treatment Too Risky
[2016-09-29] MEDS: INSULIN LISPRO 100 UNIT/ML 3 ML VIAL SUBCUT PRN ×2 (16:56→20:57)
[2016-09-30] MEDS: INSULIN GLARGINE,HUM.REC.ANLOG 300 UNIT/3 ML INSULN.PEN SUBCUT SCH (10:27)
[2016-09-30] MEDS: POLYETHYLENE GLYCOL 3350 POWDER 17 GM/1 PACKET PO SCH (10:28)
[2016-09-30] MEDS: ENOXAPARIN SODIUM INJ 40 MG/0.4 ML DISP.SYRIN SUBCUT SCH (10:35)
[2016-09-30] MEDS: THIAMINE HCL 100 MG TABLET PO SCH (10:35)
[2016-09-30] MEDS: DIVALPROEX SODIUM 500 MG TAB.SR.24H PO SCH (10:35)
[2016-09-30] MEDS: INSULIN LISPRO 100 UNIT/ML 3 ML VIAL SUBCUT PRN ×3 (11:11→20:59)
--- NOTE | 2016-09-30 14:54 | PDOC PROGRESS REPORT ---
Subjective Progress Note for:: 09/30/16 Subjective:: This a follow-up visit for dka. Patient was admitted more than a week ago. Slowly he was in the ICU. DKA resolved. Now he is waiting for placement. The facility where he was before has respectfully declined to take him back because the patient left after being there for only a week And has outstanding bills. We are currently waiting for placement. With the patient today will of course is getting frustrated because he is still sitting on the same place. I called the sales planner to find out where we are at this point. The patient is supposed to have a sales representative supervisor from [facility] come by and speak with him either today or tomorrow. Hopefully we will have an answer soon as to whether or not he can be discharged to this facility. Physical Exam Vital Signs: Temp Pulse Resp BP Pulse Ox 97.5 F 58 L 18 115/56 L 99 09/30/16 07:13 09/30/16 07:13 09/29/16 19:45 09/30/16 07:13 09/30/16 07:13 Intake & Output 09/29/16 09/30/16 10/01/16 06:59 06:59 06:59 Intake Total 240 1650 Output Total 1 Balance 239 1650 Weight 73 kg 73 kg PHYSICAL EXAM: GENERAL: This is a well-developed well-nourished thin white male resting in no acute distress sitting in his recliner. HEART: Regular rate and rhythm. No murmurs rubs or gallops. LUNGS: Clear to auscultation bilaterally with equal rise and fall of the chest. ABDOMEN: Soft, nontender, nondistended with normoactive bowel sounds EXTREMITIES: No clubbing cyanosis or edema. 2+ peripheral pulses. NEURO: Awake, alert, oriented x-3. Cranial nerves II through XII grossly intact. Results Laboratory Results: 09/22/16 07:53 09/22/16 07:53 09/16/16 06:00 CK-MB (CK-2) 9.45 H Impressions: Chest X-Ray 09/15/16 10:00 IMPRESSION: Mild vascular congestion. Head CT 09/16/16 00:00 IMPRESSION: Limited negative study Head MRI 09/19/16 19:09 IMPRESSION: NORMAL MRI OF THE BRAIN WITHOUT INTRAVENOUS GADOLINIUM CONTRAST. Assessment & Plan - Diagnosis (1) DKA (diabetic ketoacidoses) Qualifiers: Diabetes mellitus type: type 1 Diabetes mellitus complication detail: without coma Qualified Code(s): E10.10 - Type 1 diabetes mellitus with ketoacidosis without coma Plan: Resolved. Sugars are unreasonable again today because patient had an unauthorized meal. (2) Acute encephalopathy Plan: Resolved (3) Acute kidney injury Is this a current diagnosis for this admission?: YesPlan: Resolved (4) COPD (chronic obstructive pulmonary disease) Qualifiers: COPD type: unspecified COPD Qualified Code(s): J44.9 - Chronic obstructive pulmonary disease, unspecified Plan: Stable. Continue various inhalers (5) Dehydration Plan: Resolved - Time Time Spent with patient: 15-24 minutes Anticipated discharge: Other - Assisted-living - Inpatient Certification Medical Necessity: Significant Comorbidiites Make Outpatient Treatment Too Risky - Awaiting placement
[2016-10-01] MEDS: INSULIN GLARGINE,HUM.REC.ANLOG 300 UNIT/3 ML INSULN.PEN SUBCUT SCH (09:12)
[2016-10-01] MEDS: POLYETHYLENE GLYCOL 3350 POWDER 17 GM/1 PACKET PO SCH (09:12)
[2016-10-01] MEDS: THIAMINE HCL 100 MG TABLET PO SCH (09:17)
[2016-10-01] MEDS: ENOXAPARIN SODIUM INJ 40 MG/0.4 ML DISP.SYRIN SUBCUT SCH (09:17)
[2016-10-01] MEDS: DIVALPROEX SODIUM 500 MG TAB.SR.24H PO SCH (11:09)
[2016-10-01] MEDS: INSULIN LISPRO 100 UNIT/ML 3 ML VIAL SUBCUT PRN ×2 (11:11→15:56)
[2016-10-01] MEDS ORDERED: GABAPENTIN 300 MG CAPSULE PO ONE (12:30)
[2016-10-01] MEDS ORDERED: GABAPENTIN 300 MG CAPSULE PO SCH (18:00)
[2016-10-02] MEDS: GABAPENTIN 300 MG CAPSULE PO SCH ×3 (06:20→21:01)
[2016-10-02] MEDS: INSULIN LISPRO 100 UNIT/ML 3 ML VIAL SUBCUT PRN ×3 (07:53→21:01)
[2016-10-02] MEDS: INSULIN GLARGINE,HUM.REC.ANLOG 300 UNIT/3 ML INSULN.PEN SUBCUT SCH (10:03)
[2016-10-02] MEDS: POLYETHYLENE GLYCOL 3350 POWDER 17 GM/1 PACKET PO SCH (10:03)
[2016-10-02] MEDS: THIAMINE HCL 100 MG TABLET PO SCH (14:19)
[2016-10-02] MEDS: ENOXAPARIN SODIUM INJ 40 MG/0.4 ML DISP.SYRIN SUBCUT SCH (14:19)
[2016-10-02] MEDS: DIVALPROEX SODIUM 500 MG TAB.SR.24H PO SCH (14:19)
--- NOTE | 2016-10-02 16:21 | PDOC PROGRESS REPORT ---
Subjective Progress Note for:: 10/01/16 Subjective:: Patient has no specific complaints Is alert and awake He is awaiting placement Physical Exam Vital Signs: Temp Pulse Resp BP Pulse Ox 98.0 F 69 16 124/81 97 10/02/16 11:51 10/02/16 11:51 10/02/16 11:51 10/02/16 11:51 10/02/16 11:51 Intake & Output 10/01/16 10/02/16 10/03/16 00:59 00:59 00:59 Intake Total 2721 1680 Balance 2721 1680 Weight 73 kg 73 kg 73.4 kg General appearance: PRESENT: no acute distress, well-developed, well-nourished Head exam: PRESENT: atraumatic, normocephalic Eye exam: PRESENT: conjunctiva pink, EOMI, PERRLA. ABSENT: scleral icterus Ear exam: PRESENT: normal external ear exam Mouth exam: PRESENT: moist, tongue midline Neck exam: ABSENT: carotid bruit, JVD, lymphadenopathy, thyromegaly Respiratory exam: PRESENT: clear to auscultation benjamin. ABSENT: rales, rhonchi, wheezes Cardiovascular exam: PRESENT: RRR. ABSENT: diastolic murmur, rubs, systolic murmur Pulses: PRESENT: normal dorsalis pedis pul Vascular exam: PRESENT: normal capillary refill GI/Abdominal exam: PRESENT: normal bowel sounds, soft. ABSENT: distended, guarding, mass, organolmegaly, rebound, tenderness Rectal exam: PRESENT: deferred Extremities exam: PRESENT: full ROM. ABSENT: calf tenderness, clubbing, pedal edema Neurological exam: PRESENT: alert, awake, oriented to person, oriented to place , oriented to time, oriented to situation, CN II-XII grossly intact. ABSENT: motor sensory deficit Psychiatric exam: PRESENT: appropriate affect, normal mood. ABSENT: homicidal ideation, suicidal ideation Skin exam: PRESENT: dry, intact, warm. ABSENT: cyanosis, rash Results Laboratory Results: 09/22/16 07:53 09/22/16 07:53 09/16/16 06:00 CK-MB (CK-2) 9.45 H Impressions: Chest X-Ray 09/15/16 10:00 IMPRESSION: Mild vascular congestion. Head CT 09/16/16 00:00 IMPRESSION: Limited negative study Head MRI 09/19/16 19:09 IMPRESSION: NORMAL MRI OF THE BRAIN WITHOUT INTRAVENOUS GADOLINIUM CONTRAST. Assessment & Plan - Diagnosis (1) Acute encephalopathy Is this a current diagnosis for this admission?: Yes (2) DKA (diabetic ketoacidoses) Qualifiers: Diabetes mellitus type: type 1 Diabetes mellitus complication detail: without coma Qualified Code(s): E10.10 - Type 1 diabetes mellitus with ketoacidosis without coma Is this a current diagnosis for this admission?: Yes - Time Time Spent with patient: We will increase the Lantus insulin as the blood sugars are running high Continue other meds Time Spent with patient: 25-34 minutes
--- NOTE | 2016-10-02 16:23 | PDOC PROGRESS REPORT ---
Subjective Progress Note for:: 10/02/16 Subjective:: Patient is complaining of pain in his shoulder Otherwise no other complaints Alert and awake blood sugars are still running on the high side Physical Exam Vital Signs: Temp Pulse Resp BP Pulse Ox 98.0 F 69 16 124/81 97 10/02/16 11:51 10/02/16 11:51 10/02/16 11:51 10/02/16 11:51 10/02/16 11:51 Intake & Output 10/01/16 10/02/16 10/03/16 00:59 00:59 00:59 Intake Total 2721 1680 Balance 2721 1680 Weight 73 kg 73 kg 73.4 kg General appearance: PRESENT: no acute distress, well-developed, well-nourished Head exam: PRESENT: atraumatic, normocephalic Eye exam: PRESENT: conjunctiva pink, EOMI, PERRLA. ABSENT: scleral icterus Ear exam: PRESENT: normal external ear exam Mouth exam: PRESENT: moist, tongue midline Neck exam: ABSENT: carotid bruit, JVD, lymphadenopathy, thyromegaly Respiratory exam: PRESENT: clear to auscultation benjamin. ABSENT: rales, rhonchi, wheezes Cardiovascular exam: PRESENT: RRR. ABSENT: diastolic murmur, rubs, systolic murmur Pulses: PRESENT: normal dorsalis pedis pul Vascular exam: PRESENT: normal capillary refill GI/Abdominal exam: PRESENT: normal bowel sounds, soft. ABSENT: distended, guarding, mass, organolmegaly, rebound, tenderness Rectal exam: PRESENT: deferred Extremities exam: PRESENT: full ROM. ABSENT: calf tenderness, clubbing, pedal edema Neurological exam: PRESENT: alert, awake, oriented to person, oriented to place , oriented to time, oriented to situation, CN II-XII grossly intact. ABSENT: motor sensory deficit Psychiatric exam: PRESENT: appropriate affect, normal mood. ABSENT: homicidal ideation, suicidal ideation Skin exam: PRESENT: dry, intact, warm. ABSENT: cyanosis, rash Results Laboratory Results: 09/22/16 07:53 09/22/16 07:53 09/16/16 06:00 CK-MB (CK-2) 9.45 H Impressions: Chest X-Ray 09/15/16 10:00 IMPRESSION: Mild vascular congestion. Head CT 09/16/16 00:00 IMPRESSION: Limited negative study Head MRI 09/19/16 19:09 IMPRESSION: NORMAL MRI OF THE BRAIN WITHOUT INTRAVENOUS GADOLINIUM CONTRAST. Assessment & Plan - Diagnosis (1) Acute encephalopathy Is this a current diagnosis for this admission?: Yes (2) DKA (diabetic ketoacidoses) Qualifiers: Diabetes mellitus type: type 1 Diabetes mellitus complication detail: without coma Qualified Code(s): E10.10 - Type 1 diabetes mellitus with ketoacidosis without coma Is this a current diagnosis for this admission?: Yes - Time Time Spent with patient: Continue to adjust Lantus insulin Initiate Naprosyn for pain Patient is still waiting for placement Time Spent with patient: 25-34 minutes
[2016-10-02] MEDS: NAPROXEN 250 MG TABLET PO PRN (21:24)
[2016-10-03] MEDS: GABAPENTIN 300 MG CAPSULE PO SCH ×3 (06:32→21:00)
[2016-10-03] MEDS: POLYETHYLENE GLYCOL 3350 POWDER 17 GM/1 PACKET PO SCH (09:15)
[2016-10-03] MEDS: THIAMINE HCL 100 MG TABLET PO SCH (09:21)
[2016-10-03] MEDS: ENOXAPARIN SODIUM INJ 40 MG/0.4 ML DISP.SYRIN SUBCUT SCH (09:21)
[2016-10-03] MEDS ORDERED: INSULIN GLARGINE,HUM.REC.ANLOG 300 UNIT/3 ML INSULN.PEN SUBCUT SCH ×2 (10:00→22:00)
[2016-10-03] MEDS: DIVALPROEX SODIUM 500 MG TAB.SR.24H PO SCH (10:46)
[2016-10-03] MEDS: NAPROXEN 250 MG TABLET PO PRN (12:26)
[2016-10-03] MEDS: INSULIN LISPRO 100 UNIT/ML 3 ML VIAL SUBCUT PRN ×2 (13:47→16:29)
--- NOTE | 2016-10-03 16:39 | PDOC PROGRESS REPORT ---
Subjective Progress Note for:: 10/03/16 Subjective:: Patient's doing well Blood sugars are still erratic We have increased the Lantus in a.m, decreased in p.m. Patient is still waiting for placement Physical Exam Vital Signs: Temp Pulse Resp BP Pulse Ox 98.3 F 75 12 126/68 H 98 10/03/16 11:06 10/03/16 11:06 10/03/16 11:06 10/03/16 11:06 10/03/16 11:06 Intake & Output 10/02/16 10/03/16 10/04/16 00:59 00:59 00:59 Intake Total 1682059 360 Balance 1682059 360 Weight 73 kg 73.6 kg 73.6 kg General appearance: PRESENT: no acute distress, well-developed, well-nourished Head exam: PRESENT: atraumatic, normocephalic Eye exam: PRESENT: conjunctiva pink, EOMI, PERRLA. ABSENT: scleral icterus Ear exam: PRESENT: normal external ear exam Mouth exam: PRESENT: moist, tongue midline Neck exam: ABSENT: carotid bruit, JVD, lymphadenopathy, thyromegaly Respiratory exam: PRESENT: clear to auscultation benjamin. ABSENT: rales, rhonchi, wheezes Cardiovascular exam: PRESENT: RRR. ABSENT: diastolic murmur, rubs, systolic murmur Pulses: PRESENT: normal dorsalis pedis pul Vascular exam: PRESENT: normal capillary refill GI/Abdominal exam: PRESENT: normal bowel sounds, soft. ABSENT: distended, guarding, mass, organolmegaly, rebound, tenderness Rectal exam: PRESENT: deferred Extremities exam: PRESENT: full ROM. ABSENT: calf tenderness, clubbing, pedal edema Neurological exam: PRESENT: alert, awake, CN II-XII grossly intact. ABSENT: motor sensory deficit Psychiatric exam: PRESENT: appropriate affect, normal mood. ABSENT: homicidal ideation, suicidal ideation Skin exam: PRESENT: dry, intact, warm. ABSENT: cyanosis, rash Results Laboratory Results: 09/22/16 07:53 09/22/16 07:53 09/16/16 06:00 CK-MB (CK-2) 9.45 H Impressions: Chest X-Ray 09/15/16 10:00 IMPRESSION: Mild vascular congestion. Head CT 09/16/16 00:00 IMPRESSION: Limited negative study Head MRI 09/19/16 19:09 IMPRESSION: NORMAL MRI OF THE BRAIN WITHOUT INTRAVENOUS GADOLINIUM CONTRAST. Assessment & Plan - Diagnosis (1) Acute encephalopathy Is this a current diagnosis for this admission?: Yes (2) DKA (diabetic ketoacidoses) Qualifiers: Diabetes mellitus type: type 1 Diabetes mellitus complication detail: without coma Qualified Code(s): E10.10 - Type 1 diabetes mellitus with ketoacidosis without coma Is this a current diagnosis for this admission?: Yes - Time Time Spent with patient: Awaiting placement Time Spent with patient: 15-24 minutes
[2016-10-04] MEDS: GABAPENTIN 300 MG CAPSULE PO SCH ×3 (06:12→22:15)
[2016-10-04] MEDS: NAPROXEN 250 MG TABLET PO PRN (08:05)
[2016-10-04] MEDS: DIVALPROEX SODIUM 500 MG TAB.SR.24H PO SCH (10:23)
[2016-10-04] MEDS: THIAMINE HCL 100 MG TABLET PO SCH (10:23)
[2016-10-04] MEDS: ENOXAPARIN SODIUM INJ 40 MG/0.4 ML DISP.SYRIN SUBCUT SCH (10:23)
[2016-10-04] MEDS: INSULIN GLARGINE,HUM.REC.ANLOG 300 UNIT/3 ML INSULN.PEN SUBCUT SCH (10:28)
[2016-10-04] MEDS: POLYETHYLENE GLYCOL 3350 POWDER 17 GM/1 PACKET PO SCH (10:28)
--- NOTE | 2016-10-04 10:56 | PDOC PROGRESS REPORT ---
Subjective Progress Note for:: 10/04/16 Subjective:: Patient is still awaiting a placement Stable Blood sugars are still erratic We are trying to adjust Lantus insulin Physical Exam Vital Signs: Temp Pulse Resp BP Pulse Ox 98.0 F 95 20 130/63 H 100 10/04/16 07:19 10/04/16 07:19 10/04/16 07:19 10/04/16 07:19 10/04/16 07:19 Intake & Output 10/03/16 10/04/16 10/05/16 00:59 00:59 00:59 Intake Total 2059 360 Balance 2059 360 Weight 73.6 kg 73.6 kg General appearance: PRESENT: no acute distress, well-developed, well-nourished Head exam: PRESENT: atraumatic, normocephalic Eye exam: PRESENT: conjunctiva pink, EOMI, PERRLA. ABSENT: scleral icterus Ear exam: PRESENT: normal external ear exam Mouth exam: PRESENT: moist, tongue midline Neck exam: ABSENT: carotid bruit, JVD, lymphadenopathy, thyromegaly Respiratory exam: PRESENT: clear to auscultation benjamin. ABSENT: rales, rhonchi, wheezes Cardiovascular exam: PRESENT: RRR. ABSENT: diastolic murmur, rubs, systolic murmur Pulses: PRESENT: normal dorsalis pedis pul Vascular exam: PRESENT: normal capillary refill GI/Abdominal exam: PRESENT: normal bowel sounds, soft. ABSENT: distended, guarding, mass, organolmegaly, rebound, tenderness Rectal exam: PRESENT: deferred Extremities exam: PRESENT: full ROM. ABSENT: calf tenderness, clubbing, pedal edema Neurological exam: PRESENT: alert, awake, oriented to person, oriented to place , oriented to time, oriented to situation, CN II-XII grossly intact. ABSENT: motor sensory deficit Psychiatric exam: PRESENT: appropriate affect, normal mood. ABSENT: homicidal ideation, suicidal ideation Skin exam: PRESENT: dry, intact, warm. ABSENT: cyanosis, rash Results Laboratory Results: 09/22/16 07:53 09/22/16 07:53 09/16/16 06:00 CK-MB (CK-2) 9.45 H Impressions: Chest X-Ray 09/15/16 10:00 IMPRESSION: Mild vascular congestion. Head CT 09/16/16 00:00 IMPRESSION: Limited negative study Head MRI 09/19/16 19:09 IMPRESSION: NORMAL MRI OF THE BRAIN WITHOUT INTRAVENOUS GADOLINIUM CONTRAST. Assessment & Plan - Diagnosis (1) Acute encephalopathy Is this a current diagnosis for this admission?: Yes (2) DKA (diabetic ketoacidoses) Qualifiers: Diabetes mellitus type: type 1 Diabetes mellitus complication detail: without coma Qualified Code(s): E10.10 - Type 1 diabetes mellitus with ketoacidosis without coma Is this a current diagnosis for this admission?: Yes - Time Time Spent with patient: Less than 15 minutes - Continue present management Awaiting transfer
[2016-10-04] MEDS: INSULIN LISPRO 100 UNIT/ML 3 ML VIAL SUBCUT PRN (11:28)
[2016-10-04] MEDS ORDERED: INSULIN GLARGINE,HUM.REC.ANLOG 300 UNIT/3 ML INSULN.PEN SUBCUT SCH (22:00)
[2016-10-05] MEDS: GABAPENTIN 300 MG CAPSULE PO SCH ×3 (06:19→20:55)
[2016-10-05] MEDS: POLYETHYLENE GLYCOL 3350 POWDER 17 GM/1 PACKET PO SCH (09:51)
[2016-10-05] MEDS: INSULIN GLARGINE,HUM.REC.ANLOG 300 UNIT/3 ML INSULN.PEN SUBCUT SCH (09:56)
[2016-10-05] MEDS: ENOXAPARIN SODIUM INJ 40 MG/0.4 ML DISP.SYRIN SUBCUT SCH (10:01)
[2016-10-05] MEDS: THIAMINE HCL 100 MG TABLET PO SCH (10:01)
[2016-10-05] MEDS: DIVALPROEX SODIUM 500 MG TAB.SR.24H PO SCH (10:52)
[2016-10-05] MEDS: NAPROXEN 250 MG TABLET PO PRN ×2 (10:52→20:57)
[2016-10-05] MEDS: INSULIN LISPRO 100 UNIT/ML 3 ML VIAL SUBCUT SCH ×2 (11:48→17:23)
--- NOTE | 2016-10-05 17:20 | PDOC PROGRESS REPORT ---
Subjective Progress Note for:: 10/05/16 Subjective:: Patient is unchanged not very cooperative Physical Exam Vital Signs: Temp Pulse Resp BP Pulse Ox 98.0 F 70 18 130/61 H 100 10/05/16 12:51 10/05/16 12:51 10/05/16 12:51 10/05/16 12:51 10/05/16 12:51 Intake & Output 10/04/16 10/05/16 10/06/16 00:59 00:59 00:59 Intake Total 360 360 Balance 360 360 Weight 73.6 kg 71.2 kg General appearance: PRESENT: no acute distress, well-developed, well-nourished Head exam: PRESENT: atraumatic, normocephalic Eye exam: PRESENT: conjunctiva pink, EOMI, PERRLA. ABSENT: scleral icterus Ear exam: PRESENT: normal external ear exam Mouth exam: PRESENT: moist, tongue midline Neck exam: ABSENT: carotid bruit, JVD, lymphadenopathy, thyromegaly Respiratory exam: PRESENT: clear to auscultation benjamin. ABSENT: rales, rhonchi, wheezes Cardiovascular exam: PRESENT: RRR. ABSENT: diastolic murmur, rubs, systolic murmur Pulses: PRESENT: normal dorsalis pedis pul Vascular exam: PRESENT: normal capillary refill GI/Abdominal exam: PRESENT: normal bowel sounds, soft. ABSENT: distended, guarding, mass, organolmegaly, rebound, tenderness Rectal exam: PRESENT: deferred Extremities exam: PRESENT: full ROM. ABSENT: calf tenderness, clubbing, pedal edema Neurological exam: PRESENT: alert, awake, CN II-XII grossly intact. ABSENT: motor sensory deficit Skin exam: PRESENT: dry, intact, warm. ABSENT: cyanosis, rash Results Laboratory Results: 09/22/16 07:53 09/22/16 07:53 09/16/16 06:00 CK-MB (CK-2) 9.45 H Impressions: Chest X-Ray 09/15/16 10:00 IMPRESSION: Mild vascular congestion. Head CT 09/16/16 00:00 IMPRESSION: Limited negative study Head MRI 09/19/16 19:09 IMPRESSION: NORMAL MRI OF THE BRAIN WITHOUT INTRAVENOUS GADOLINIUM CONTRAST. Assessment & Plan - Diagnosis (1) Acute encephalopathy Is this a current diagnosis for this admission?: Yes (2) DKA (diabetic ketoacidoses) Qualifiers: Diabetes mellitus type: type 1 Diabetes mellitus complication detail: without coma Qualified Code(s): E10.10 - Type 1 diabetes mellitus with ketoacidosis without coma Is this a current diagnosis for this admission?: YesPlan: Sugars still are difficult to control Patient's nutrition is erratic Decrease Lantus and ordered short acting insulin before meals - Time Time Spent with patient: 15-24 minutes
[2016-10-05] MEDS: INSULIN LISPRO 100 UNIT/ML 3 ML VIAL SUBCUT PRN (20:57)
[2016-10-06] MEDS: GABAPENTIN 300 MG CAPSULE PO SCH ×3 (06:35→20:47)
[2016-10-06] MEDS: DEXTROSE 40% GEL 15 GM TUBE PO PRN ×2 (06:41→06:59)
[2016-10-06] MEDS: INSULIN LISPRO 100 UNIT/ML 3 ML VIAL SUBCUT SCH ×3 (08:15→16:45)
[2016-10-06] MEDS: POLYETHYLENE GLYCOL 3350 POWDER 17 GM/1 PACKET PO SCH (10:41)
[2016-10-06] MEDS: INSULIN GLARGINE,HUM.REC.ANLOG 300 UNIT/3 ML INSULN.PEN SUBCUT SCH (10:44)
[2016-10-06] MEDS: ENOXAPARIN SODIUM INJ 40 MG/0.4 ML DISP.SYRIN SUBCUT SCH (11:19)
[2016-10-06] MEDS: THIAMINE HCL 100 MG TABLET PO SCH (11:19)
[2016-10-06] MEDS: DIVALPROEX SODIUM 500 MG TAB.SR.24H PO SCH (11:19)
--- NOTE | 2016-10-06 15:33 | PDOC PROGRESS REPORT ---
Subjective Progress Note for:: 10/06/16 Subjective:: No change blood sugars are still being adjusted Physical Exam Vital Signs: Temp Pulse Resp BP Pulse Ox 97.3 F 112 H 16 112/62 100 10/06/16 08:09 10/06/16 08:09 10/06/16 08:09 10/06/16 08:09 10/06/16 08:09 Intake & Output 10/05/16 10/06/16 10/07/16 00:59 00:59 00:59 Intake Total 1120 Balance 1120 Weight 71.2 kg 72.3 kg General appearance: PRESENT: no acute distress, well-developed, well-nourished Head exam: PRESENT: atraumatic, normocephalic Eye exam: PRESENT: conjunctiva pink, EOMI, PERRLA. ABSENT: scleral icterus Ear exam: PRESENT: normal external ear exam Mouth exam: PRESENT: moist, tongue midline Neck exam: ABSENT: carotid bruit, JVD, lymphadenopathy, thyromegaly Respiratory exam: PRESENT: clear to auscultation benjamin. ABSENT: rales, rhonchi, wheezes Cardiovascular exam: PRESENT: RRR. ABSENT: diastolic murmur, rubs, systolic murmur Pulses: PRESENT: normal dorsalis pedis pul Vascular exam: PRESENT: normal capillary refill GI/Abdominal exam: PRESENT: normal bowel sounds, soft. ABSENT: distended, guarding, mass, organolmegaly, rebound, tenderness Rectal exam: PRESENT: deferred Extremities exam: PRESENT: full ROM. ABSENT: calf tenderness, clubbing, pedal edema Neurological exam: PRESENT: awake, CN II-XII grossly intact. ABSENT: motor sensory deficit Skin exam: PRESENT: dry, intact, warm. ABSENT: cyanosis, rash Results Laboratory Results: 09/22/16 07:53 09/22/16 07:53 09/16/16 06:00 CK-MB (CK-2) 9.45 H Impressions: Chest X-Ray 09/15/16 10:00 IMPRESSION: Mild vascular congestion. Head CT 09/16/16 00:00 IMPRESSION: Limited negative study Head MRI 09/19/16 19:09 IMPRESSION: NORMAL MRI OF THE BRAIN WITHOUT INTRAVENOUS GADOLINIUM CONTRAST. Assessment & Plan - Diagnosis (1) Acute encephalopathy Is this a current diagnosis for this admission?: Yes (2) DKA (diabetic ketoacidoses) Qualifiers: Diabetes mellitus type: type 1 Diabetes mellitus complication detail: without coma Qualified Code(s): E10.10 - Type 1 diabetes mellitus with ketoacidosis without coma Is this a current diagnosis for this admission?: Yes - Time Time Spent with patient: Continue present management Awaiting placement
[2016-10-06] MEDS: INSULIN LISPRO 100 UNIT/ML 3 ML VIAL SUBCUT PRN (16:46)
[2016-10-07] MEDS: GABAPENTIN 300 MG CAPSULE PO SCH ×3 (06:14→20:40)
[2016-10-07] MEDS: INSULIN LISPRO 100 UNIT/ML 3 ML VIAL SUBCUT SCH ×3 (08:07→18:11)
[2016-10-07] MEDS: INSULIN LISPRO 100 UNIT/ML 3 ML VIAL SUBCUT PRN ×4 (08:07→21:23)
[2016-10-07] MEDS: POLYETHYLENE GLYCOL 3350 POWDER 17 GM/1 PACKET PO SCH (10:20)
[2016-10-07] MEDS: INSULIN GLARGINE,HUM.REC.ANLOG 300 UNIT/3 ML INSULN.PEN SUBCUT SCH (10:20)
[2016-10-07] MEDS: THIAMINE HCL 100 MG TABLET PO SCH (10:46)
[2016-10-07] MEDS: DIVALPROEX SODIUM 500 MG TAB.SR.24H PO SCH (10:46)
[2016-10-07] MEDS: ENOXAPARIN SODIUM INJ 40 MG/0.4 ML DISP.SYRIN SUBCUT SCH (10:46)
--- NOTE | 2016-10-07 14:01 | PDOC PROGRESS REPORT ---
Subjective Progress Note for:: 10/07/16 Subjective:: Still awaiting transfer to [facility] His blood sugars are still erratic but is not hypoglycemic in the morning He has no complaints and is clinically unchanged Physical Exam Vital Signs: Temp Pulse Resp BP Pulse Ox 98.4 F 66 18 125/86 H 100 10/06/16 19:15 10/06/16 19:15 10/06/16 19:15 10/06/16 19:15 10/06/16 19:15 Intake & Output 10/06/16 10/07/16 10/08/16 00:59 00:59 00:59 Intake Total 1120 1650 Balance 1120 1650 Weight 71.2 kg 72.3 kg 72 kg General appearance: PRESENT: no acute distress, well-developed, well-nourished Head exam: PRESENT: atraumatic, normocephalic Eye exam: PRESENT: conjunctiva pink, EOMI, PERRLA. ABSENT: scleral icterus Ear exam: PRESENT: normal external ear exam Mouth exam: PRESENT: moist, tongue midline Neck exam: ABSENT: carotid bruit, JVD, lymphadenopathy, thyromegaly Respiratory exam: PRESENT: clear to auscultation benjamin. ABSENT: rales, rhonchi, wheezes Cardiovascular exam: PRESENT: RRR. ABSENT: diastolic murmur, rubs, systolic murmur Pulses: PRESENT: normal dorsalis pedis pul Vascular exam: PRESENT: normal capillary refill GI/Abdominal exam: PRESENT: normal bowel sounds, soft. ABSENT: distended, guarding, mass, organolmegaly, rebound, tenderness Rectal exam: PRESENT: deferred Extremities exam: PRESENT: full ROM. ABSENT: calf tenderness, clubbing, pedal edema Neurological exam: PRESENT: alert, awake, oriented to person, oriented to place , oriented to time, oriented to situation, CN II-XII grossly intact. ABSENT: motor sensory deficit Psychiatric exam: PRESENT: appropriate affect, normal mood. ABSENT: homicidal ideation, suicidal ideation Skin exam: PRESENT: dry, intact, warm. ABSENT: cyanosis, rash Results Laboratory Results: 09/22/16 07:53 09/22/16 07:53 09/16/16 06:00 CK-MB (CK-2) 9.45 H Impressions: Chest X-Ray 09/15/16 10:00 IMPRESSION: Mild vascular congestion. Head CT 09/16/16 00:00 IMPRESSION: Limited negative study Head MRI 09/19/16 19:09 IMPRESSION: NORMAL MRI OF THE BRAIN WITHOUT INTRAVENOUS GADOLINIUM CONTRAST. Assessment & Plan - Diagnosis (1) Acute encephalopathy Is this a current diagnosis for this admission?: YesPlan: Has resolved (2) DKA (diabetic ketoacidoses) Qualifiers: Diabetes mellitus type: type 1 Diabetes mellitus complication detail: without coma Qualified Code(s): E10.10 - Type 1 diabetes mellitus with ketoacidosis without coma Is this a current diagnosis for this admission?: YesPlan: Resolved Patient's Lantus insulin has been adjusted He seems to have brittle diabetes and was hypoglycemic in the morning Continue present management Awaiting discharge - Time Time Spent with patient: 25-34 minutes
[2016-10-08] MEDS: GABAPENTIN 300 MG CAPSULE PO SCH ×3 (06:17→20:41)
[2016-10-08] MEDS: INSULIN LISPRO 100 UNIT/ML 3 ML VIAL SUBCUT PRN ×2 (08:31→12:13)
[2016-10-08] MEDS: INSULIN LISPRO 100 UNIT/ML 3 ML VIAL SUBCUT SCH ×3 (08:31→17:29)
[2016-10-08] MEDS: POLYETHYLENE GLYCOL 3350 POWDER 17 GM/1 PACKET PO SCH (10:22)
[2016-10-08] MEDS: INSULIN GLARGINE,HUM.REC.ANLOG 300 UNIT/3 ML INSULN.PEN SUBCUT SCH (10:22)
[2016-10-08] MEDS: ENOXAPARIN SODIUM INJ 40 MG/0.4 ML DISP.SYRIN SUBCUT SCH (10:26)
[2016-10-08] MEDS: THIAMINE HCL 100 MG TABLET PO SCH (10:26)
[2016-10-08] MEDS: DIVALPROEX SODIUM 500 MG TAB.SR.24H PO SCH (12:08)
[2016-10-08] MEDS: TRAMADOL HCL 50 MG TABLET PO PRN ×2 (13:35→20:40)
--- NOTE | 2016-10-08 19:31 | PDOC DISCHARGE SUMMARY ---
General - Admit/Disc Date/PCP Admission Date/Primary Care Provider: 09/15/16 09:52 KAYLIE ALVAREZ, Discharge Date: 10/08/16 - Discharge Diagnosis (1) DKA (diabetic ketoacidoses) Is this a current diagnosis for this admission?: Yes (2) Acute encephalopathy Is this a current diagnosis for this admission?: Yes (3) COPD (chronic obstructive pulmonary disease) Is this a current diagnosis for this admission?: Yes (4) Medical non-compliance Is this a current diagnosis for this admission?: Yes - Additional Information Resuscitation Status: Full Code Discharge Diet: Diabetic Discharge Activity: Activity As Tolerated Home Medications: Divalproex Sodium [Depakote ER 500 mg Tab.sr] 500 mg PO ACLUNCH tab.sr.24h 07/26 Gabapentin [Neurontin 300 mg Capsule] 600 mg PO Q8 capsule 10/08/16 Insulin Glargine,Hum.rec.anlog [Lantus Insulin 100 Unit/mL] 25 unit SUBCUT DAILY insuln.pen 10/08/16 Insulin Lispro [Humalog Insulin (Lispro) 100 unit/mL] 0 - 12 unit SUBCUT ACHSP PRN unit 10/08/16 Insulin Lispro [Humalog Insulin (Lispro) 100 unit/mL] 4 unit SUBCUT AC unit 07/26 Ipratropium/Albuterol Sulfate [Duoneb 3 ml Ampul] 3 ml NEB RTQ4HP PRN vial.neb 10/08/16 Naproxen [Naprosyn 250 mg Tablet] 250 mg PO Q12HP PRN tablet 10/08/16 Polyethylene Glycol 3350 [Miralax Powder 17 gm/Packet] 17 gm PO DAILY powd.pack 10/08/16 Thiamine HCl [Thiamine 100 mg Tablet] 100 mg PO DAILY tablet 10/08/16 Tramadol HCl [Ultram 50 mg Tablet] 50 mg PO Q8HP PRN #10 tablet 10/08/16 History of Present Illness Patient complains of: Unresponsive History of Present Illness: GAL ERICKSON is a 51 year old male well known to the hospitalist service for repeated admissions in the treatment of his type I diabetes, medical noncompliance and resultant DKA. In fact he was just admitted to our hospital and discharged to couple of days ago after medical noncompliance led to an episode of DKA. He presents to the emergency department now due to altered mental status and is once again found to be severely acidotic with blood sugars registering greater than 1000. Currently he remains obtunded and unable to provide a review of systems her medical history. He has a pH of 6.8, is receiving his sixth liter of normal saline and is on an insulin drip at 7 units per hour at present. Hospital Course Hospital Course: Patient was admitted for DKA. Treated with insulin drip protocol. Encephalopathy and DKA resolved. Patient will be placed at assisted-living facility after discharge. See hospital progress notes for detailed documentation of Hospital course. Physical Exam Vital Signs: Temp Pulse Resp BP Pulse Ox 98.0 F 74 16 136/83 H 100 10/07/16 20:38 10/07/16 20:38 10/07/16 20:38 10/07/16 20:38 10/07/16 20:38 Intake & Output 10/07/16 10/08/16 10/09/16 06:59 06:59 06:59 Intake Total 1650 1849 630 Balance 1650 1849 630 Weight 72 kg 72 kg GENERAL: No acute distress HEENT: Conjunctiva clear, nonicteric, moist mucous membranes, no JVD, midline trachea RESPIRATORY: Clear to auscultation bilaterally, no wheezes, no rhonchi CARDIAC: Regular rate and rhythm, no murmurs/gallops/rubs ABDOMEN: Soft, nondistended, nontender, positive bowel sounds, no rebound, no guarding EXTREMETIES: No edema, cyanosis, clubbing NEUROLOGIC: Alert, oriented to person/place/time, CN's grossly intact, no focal deficits SKIN: No rash, wounds PSYCH: Normal mood, normal affect Results Laboratory Results: 09/22/16 07:53 09/22/16 07:53 09/16/16 06:00 CK-MB (CK-2) 9.45 H Impressions: Chest X-Ray 09/15/16 10:00 IMPRESSION: Mild vascular congestion. Head CT 09/16/16 00:00 IMPRESSION: Limited negative study Head MRI 09/19/16 19:09 IMPRESSION: NORMAL MRI OF THE BRAIN WITHOUT INTRAVENOUS GADOLINIUM CONTRAST. Qualifiers PATEINT BEING DISCHARGED WITH ANY OF THE FOLLOWING DIAGNOSIS?: No Plan Time Spent: Greater than 30 Minutes
[2016-10-08 23:24] VITALS: BP 131/80
[2016-10-09] MEDS: GABAPENTIN 300 MG CAPSULE PO SCH (06:31)
--- NOTE | 2016-10-09 09:34 | PDOC PROGRESS REPORT ---
Subjective Progress Note for:: 10/09/16 Subjective:: Patient's only complaint is of chronic neuropathic pain. Otherwise no issues of been reported. Patient denies fever, chills, headache, new focal weakness, chest pain, shortness of breath, abdominal pain, nausea, vomiting, diarrhea, constipation. Physical Exam Vital Signs: Temp Pulse Resp BP Pulse Ox 98.3 F 78 16 131/80 H 100 10/08/16 19:18 10/08/16 19:18 10/08/16 19:18 10/08/16 19:18 10/08/16 19:18 Intake & Output 10/08/16 10/09/16 10/10/16 06:59 06:59 06:59 Intake Total 1849 1230 Balance 1849 1230 Weight 72 kg 72 kg GENERAL: No acute distress HEENT: Conjunctiva clear, nonicteric, moist mucous membranes, no JVD, midline trachea RESPIRATORY: Clear to auscultation bilaterally, no wheezes, no rhonchi CARDIAC: Regular rate and rhythm, no murmurs/gallops/rubs ABDOMEN: Soft, nondistended, nontender, positive bowel sounds, no rebound, no guarding EXTREMETIES: No edema, cyanosis, clubbing NEUROLOGIC: Alert, oriented to person/place/time, CN's grossly intact, no focal deficits SKIN: No rash, wounds PSYCH: Normal mood, normal affect Results Laboratory Results: 09/22/16 07:53 09/22/16 07:53 09/16/16 06:00 CK-MB (CK-2) 9.45 H Impressions: Chest X-Ray 09/15/16 10:00 IMPRESSION: Mild vascular congestion. Head CT 09/16/16 00:00 IMPRESSION: Limited negative study Head MRI 09/19/16 19:09 IMPRESSION: NORMAL MRI OF THE BRAIN WITHOUT INTRAVENOUS GADOLINIUM CONTRAST. Assessment & Plan - Diagnosis (1) DKA (diabetic ketoacidoses) Qualifiers: Diabetes mellitus type: type 1 Diabetes mellitus complication detail: without coma Qualified Code(s): E10.10 - Type 1 diabetes mellitus with ketoacidosis without coma Is this a current diagnosis for this admission?: Yes (2) Acute encephalopathy Is this a current diagnosis for this admission?: Yes (3) COPD (chronic obstructive pulmonary disease) Qualifiers: COPD type: unspecified COPD Qualified Code(s): J44.9 - Chronic obstructive pulmonary disease, unspecified Is this a current diagnosis for this admission?: Yes (4) Medical non-compliance Is this a current diagnosis for this admission?: Yes (5) Neuropathy Is this a current diagnosis for this admission?: Yes - Time Time Spent with patient: 35 or more minutes Disposition: Medically stable for discharge to assisted living facility. Follow-up with primary care provider as soon as possible.
[2016-10-09] MEDS: DIVALPROEX SODIUM 500 MG TAB.SR.24H PO SCH (10:53)
[2016-10-09] MEDS: ENOXAPARIN SODIUM INJ 40 MG/0.4 ML DISP.SYRIN SUBCUT SCH (10:53)
[2016-10-09] MEDS: THIAMINE HCL 100 MG TABLET PO SCH (10:53)
[2016-10-09] MEDS: POLYETHYLENE GLYCOL 3350 POWDER 17 GM/1 PACKET PO SCH (11:01)
[2016-10-09] MEDS: INSULIN LISPRO 100 UNIT/ML 3 ML VIAL SUBCUT SCH ×2 (11:02→11:43)
[2016-10-09] MEDS: INSULIN GLARGINE,HUM.REC.ANLOG 300 UNIT/3 ML INSULN.PEN SUBCUT SCH (11:02)
== END 2016-10-09 14:45 | disposition home health service (06) | DRG 637 ==
LOC: ER 06:39 → UNDOADMIN 09:43 → EH 09:43 → ICU 13:22 → 5 09-18 19:31
PROVIDERS: ADMIT Internal Medicine; ATTEND Internal Medicine
PROC: 02HV33Z Insertion of Infusion Device into Superior Vena Cava, Percutaneous Approach (ICD-10-PCS; principal; 2016-09-15)
PROC: 3E0F73Z Introduction of Anti-inflammatory into Respiratory Tract, Via Natural or Artificial Opening (ICD-10-PCS; 2016-09-15)
DX: E10.10 Type 1 diabetes mellitus with ketoacidosis without coma (principal); G93.41 Metabolic encephalopathy; N17.9 Acute kidney failure, unspecified; E10.40 Type 1 diabetes mellitus with diabetic neuropathy, unspecified; E86.0 Dehydration; J44.9 Chronic obstructive pulmonary disease, unspecified; M19.90 Unspecified osteoarthritis, unspecified site; D72.823 Leukemoid reaction; E87.5 Hyperkalemia; Z79.4 Long term (current) use of insulin; Z88.6 Allergy status to analgesic agent; Z88.0 Allergy status to penicillin; Z91.018 Allergy to other foods; Z86.14 Personal history of Methicillin resistant Staphylococcus aureus infection; Z78.1 Physical restraint status; Z91.19 Patient's noncompliance with other medical treatment and regimen
CPT/HCPCS: 36415; 70450; 70551; 71010; 80048; 80053; 80307; 81001; 82553; 82607; 82803; 82947; 82962; 83690; 83735; 84100; 84443; 85025; 85610; 85652; 86140; 86701; 93005; 93010; 96360; 96361; 99291; C1751; J1200; J1630; J1650; J1815; J2060; J3411; J3475; J3480; J3490; J7030; J7120; S0164

== ENCOUNTER → 2017-03-11 | Outpatient (CLI) | payer MEDICARE ==
[2017-03-11 08:09] LABS: ABSOLUTE EOSINOPHILS # (AUTO) 0.1 10^3/uL (0.0-0.6); ABSOLUTE LYMPHOCYTES (AUTO) 1.2 10^3/uL (0.5-4.7); ABSOLUTE MONOCYTES (AUTO) 0.3 10^3/uL (0.1-1.4); ABSOLUTE NEUT (AUTO) 2.9 10^3/uL (1.7-8.2); EOSINOPHILS % (AUTO) 2.8 % (0-6); HEMATOCRIT 40.6 % (37.9-51.0); HEMOGLOBIN 13.6 g/dL (13.5-17.0); HGB HCT DIFFERENCE 0.2; LYMPHOCYTES % (AUTO) 26.2 % (13-45); MEAN CORPUSCULAR HEMOGLOBIN 25.1 pg (27.0-33.4); MEAN CORPUSCULAR HGB CONC 33.4 g/dL (32.0-36.0); MEAN CORPUSCULAR VOLUME 75 fl (80-97); MONOCYTES % (AUTO) 7.1 % (3-13); RED BLOOD COUNT 5.42 10^6/uL (4.35-5.55); RED CELL DISTRIBUTION WIDTH 14.6 % (11.5-14.0); SEGMENTED NEUTROPHILS % (AUTO) 62.9 % (42-78); WHITE BLOOD COUNT 4.6 10^3/uL (4.0-10.5)
[2017-03-11 08:30] LABS: ALANINE AMINOTRANSFERASE 26 U/L (21-72); ALBUMIN 4.4 g/dL (3.5-5.0); ALKALINE PHOSPHATASE 84 U/L (38-126); ANION GAP 11 (5-19); ASPARTATE AMINO TRANSFERASE 16 U/L (17-59); BILIRUBIN,DIRECT 0.4 mg/dL (0.0-0.4); BILIRUBIN,TOTAL 0.7 mg/dL (0.2-1.3); BLOOD UREA NITROGEN 12 mg/dL (7-20); CALCIUM 9.9 mg/dL (8.4-10.2); CARBON DIOXIDE 30 mmol/L (22-30); CHLORIDE 102 mmol/L (98-107); CHOLESTEROL 179.18 mg/dL (0-200); CREATININE RESULT 0.64 mg/dL (0.52-1.25); Direct HDL 69 mg/dL (>40); GLUCOSE 289 mg/dL (75-110); POTASSIUM 4.5 mmol/L (3.6-5.0); SODIUM 142.5 mmol/L (137-145); TRIGLYCERIDES 59 mg/dL (<150)
[2017-03-11 08:40] LABS: DIRECT LDL 101 mg/dL (<100)
[2017-03-11 08:46] LABS: VALPROIC ACID < 10.0 ug/mL (50.0-120.0)
== END ==
LOC: OD 07:38
PROVIDERS: ATTEND Internal Medicine
DX: E11.40 Type 2 diabetes mellitus with diabetic neuropathy, unspecified (principal); G40.909 Epilepsy, unspecified, not intractable, without status epilepticus
CPT/HCPCS: 36415; 80053; 80061; 80164; 83036; 85025

== ENCOUNTER 2017-07-03 08:38 | Emergency (ER) | payer MEDICARE, MEDICAID ==
[2017-07-03] MEDS ORDERED: IBUPROFEN 800 MG TABLET PO ONE (10:39)
--- NOTE | 2017-07-03 10:39 | ER Document Report ---
ED General - General Chief Complaint: Fall Stated Complaint: POSSIBLE SYNCOPE Time Seen by Provider: 07/03/17 09:42 Mode of Arrival: Medic Information source: Patient Notes: 52-year-old male presents from care facility [facility] due to concern of a fall. Patient states he did not pass out he did not strike his head, patient is alert oriented and states he refuses to have any imaging done of his head because he did not hit it. Patient does admit to right shoulder pain Patient denies any other trauma TRAVEL OUTSIDE OF THE [place] IN LAST 30 DAYS: No - HPI Onset: Just prior to arrival Onset/Duration: Sudden Quality of pain: Achy Severity: Mild Pain Level: 1 Associated symptoms: Body/muscle aches Exacerbated by: Movement Relieved by: Denies Similar symptoms previously: No Recently seen / treated by doctor: No - Related Data Allergies/Adverse Reactions: tomato Allergy (Unknown, Verified 07/03/17 09:00) citric acid Allergy (Verified 07/03/17 09:00) codeine [Codeine] Allergy (Verified 07/03/17 09:00) Penicillins Allergy (Verified 07/03/17 09:00) Past Medical History - Social History Smoking Status: Former Smoker Cigarette use (# per day): No Chew tobacco use (# tins/day): No Smoking Education Provided: No Family History: Reviewed & Not Pertinent, Other Patient has suicidal ideation: No Patient has homicidal ideation: No - Past Medical History Cardiac Medical History: Denies: Hx Coronary Artery Disease, Hx DVT, Hx Heart Attack, Hx Hypercholesterolemia, Hx Hypertension, Hx Pulmonary Embolism Pulmonary Medical History: Reports: Hx COPD Denies: Hx Asthma, Hx Bronchitis, Hx Pneumonia Neurological Medical History: Denies: Hx Cerebrovascular Accident, Hx Seizures Endocrine Medical History: Reports: Hx Diabetes Mellitus Type 1, Hx Diabetes Mellitus Type 2. Denies: Hx Hyperthyroidism, Hx Hypothyroidism Renal/ Medical History: Denies: Hx Peritoneal Dialysis GI Medical History: Denies: Hx Cirrhosis, Hx Hepatitis, Hx Hiatal Hernia, Hx Ulcer Musculoskeltal Medical History: Reports Hx Arthritis Psychiatric Medical History: Reports: Hx Depression Traumatic Medical History: Reports: Hx Fractures Infectious Medical History: Reports: Hx MRSA. Denies: Hx Hepatitis Past Surgical History: Reports: Hx Orthopedic Surgery - knee, ankle, back, Hx Pacemaker. Denies: Hx Open Heart Surgery - Immunizations Hx Diphtheria, Pertussis, Tetanus Vaccination: Yes Review of Systems - Review of Systems Notes: REVIEW OF SYSTEMS: CONSTITUTIONAL : Denies fever, chills, or sweats. Denies recent illness. EENT: Denies eye, ear, throat, or mouth pain or symptoms. Denies nasal or sinus congestion or discharge. Denies throat, tongue, or mouth swelling or difficulty swallowing. CARDIOVASCULAR: Denies chest pain. Denies palpitations or racing or irregular heart beat. Denies ankle edema. RESPIRATORY: Denies cough, cold, or chest congestion. Denies shortness of breath, difficulty breathing, or wheezing. GASTROINTESTINAL: Denies abdominal pain or distention. Denies nausea, vomiting , or diarrhea. Denies blood in vomitus, stools, or per rectum. Denies black, tarry stools. Denies constipation. GENITOURINARY: Denies difficulty urinating, painful urination, burning, frequency, blood in urine, or discharge. MUSCULOSKELETAL: Admits to right shoulder pain SKIN: Denies rash, lesions or sores. HEMATOLOGIC : Denies easy bruising or bleeding. LYMPHATIC: Denies swollen, enlarged glands. NEUROLOGICAL: Denies confusion or altered mental status. Denies passing out or loss of consciousness. Denies dizziness or lightheadedness. Denies headache. Denies weakness or paralysis or loss of use of either side. Denies problems with gait or speech. Denies sensory loss, numbness, or tingling. Denies seizures. PSYCHIATRIC: Denies anxiety or stress. Denies depression, suicidal ideation, or homicidal ideation. ALL OTHER SYSTEMS REVIEWED AND NEGATIVE. Dictation was performed using [employer] voice recognition software PHYSICAL EXAMINATION: GENERAL: Well-appearing, well-nourished and in no acute distress. HEAD: Atraumatic, normocephalic. EYES: Pupils equal round and reactive to light, extraocular movements intact, sclera anicteric, conjunctiva are normal. ENT: Nares patent, oropharynx clear without exudates. Moist mucous membranes. NECK: Normal range of motion, supple without lymphadenopathy LUNGS: Breath sounds clear to auscultation bilaterally and equal. No wheezes rales or rhonchi. HEART: Regular rate and rhythm without murmurs ABDOMEN: Soft, nontender, nondistended abdomen. No guarding, no rebound. No masses appreciated. Musculoskeletal: limited rom, pt is holding his right arm and mild discomfort NEUROLOGICAL: Cranial nerves grossly intact. Normal speech, normal gait. Normal sensory, motor exams PSYCH: Normal mood, normal affect. SKIN: Warm, Dry, normal turgor, no rashes or lesions noted. Physical Exam - Vital signs Vitals: Temp Pulse Resp BP Pulse Ox 99.5 F 68 16 120/70 96 07/03/17 08:55 07/03/17 08:55 07/03/17 08:55 07/03/17 08:55 07/03/17 08:55 Course - Re-evaluation Re-evalutation: 07/03/17 10:38 CT of the head and x-ray had been ordered patient refused CT he is alert oriented answers my questions appropriately therefore I will abide by his wishes It is also noted the patient refused initially to come he does not wish to be evaluated per EMS but finally agreed 07/03/17 10:50 X-ray notes no acute fracture, patient otherwise looks well is in no distress I will discharge back to the care facility After performing a Medical Screening Examination, I estimate there is LOW risk for INTRACRANIAL HEMORRHAGE, UNSTABLE SPINE FRACTURE, CENTRAL CORD SYNDROME, CAUDA EQUINA, THORACIC AORTIC DISSECTION, PNEUMOTHORAX, PERFORATED BOWEL, RUPTURED ABDOMINAL AORTIC ANEURYSM, ACUTE TENDON RUPTURE, COMPARTMENT SYNDROME, or OPEN FRACTURE, thus I consider the discharge disposition reasonable. Also, there is no evidence or peritonitis, sepsis, or toxicity. I have reevaluated this patient multiple times and no significant life threatening changes are noted. The patient and I have discussed the diagnosis and risks, and we agree with discharging home to follow-up with their primary doctor with the understanding that symptoms and presentations can change. We also discussed returning to the Emergency Department immediately if new or worsening symptoms occur. We have discussed the symptoms which are most concerning (e.g., bloody stool, fever, changing or worsening pain, vomiting) that necessitate immediate return. 07/03/17 10:53 - Vital Signs Vital signs: Temp Pulse Resp BP Pulse Ox 99.5 F 68 16 120/70 96 07/03/17 08:55 07/03/17 08:55 07/03/17 08:55 07/03/17 08:55 07/03/17 08:55 - Diagnostic Test Radiology reviewed: Image reviewed, Reports reviewed Discharge - Discharge Clinical Impression: Shoulder pain Qualifiers: Chronicity: acute Laterality: right Qualified Code(s): M25.511 - Pain in right shoulder Fall Qualifiers: Encounter type: initial encounter Qualified Code(s): W19.XXXA - Unspecified fall, initial encounter Condition: Stable Disposition: HOME, SELF-CARE Instructions: Contusion ([facility]) Referrals: DENIS CHRISTINA MD [Primary Care Provider] - Follow up tomorrow
--- NOTE | 2017-07-03 10:48 | RADIOLOGY REPORT (SQ) ---
EXAM DESCRIPTION: SHOULDER RIGHT 2 OR MORE VIEWS COMPLETED DATE/TIME: 07/03/2017 10:35 am REASON FOR STUDY: fall syncope COMPARISON: None. NUMBER OF VIEWS: Three views. TECHNIQUE: Internal rotation, external rotation, and Y view images acquired of the right shoulder. LIMITATIONS: None. FINDINGS: MINERALIZATION: Normal. BONES: No acute fracture or dislocation. No worrisome bone lesions. JOINTS: No dislocation. VISUALIZED LUNGS AND RIBS: No pneumothorax. No rib fracture. SOFT TISSUES: No radiopaque foreign body. OTHER: No other significant finding. IMPRESSION: NEGATIVE STUDY OF THE RIGHT SHOULDER. NO RADIOGRAPHIC EVIDENCE OF ACUTE INJURY. TECHNICAL DOCUMENTATION: JOB ID: [id number] [employer]- All Rights Reserved
[2017-07-03 12:25] VITALS: BP 134/79
== END 2017-07-03 12:24 | disposition home or self-care (01) ==
LOC: ER 08:38
DX: M25.511 Pain in right shoulder (principal); R55 Syncope and collapse; W19.XXXA Unspecified fall, initial encounter; Z87.891 Personal history of nicotine dependence
CPT/HCPCS: 99284; 73030; A9270